=== PATIENT | female | born 1950 | race African-American/Black ===

== ENCOUNTER 2017-05-26 13:38 | Inpatient (IN) | payer MEDICARE, MEDICAID ==
[2017-05-26] MEDS ORDERED: ISOVUE-370 76%-LOCM 1 ML ONE (13:56)
[2017-05-26 15:20] LABS: Hematocrit 40.3 % (36.0-47.0); Mean Platelet Volume 7.1 fL (7.4-10.4); Red Blood Cell (RBC) Count 4.14 mill/uL (4.20-5.40); White Blood Cell (WBC) Count 15.1 thou/uL (4.8-10.8)
--- NOTE | 2017-05-26 15:35 | RAD ---
SINGLE VIEW OF THE PELVIS: Comparison: 04-21-13 History: Fall with pelvic pain and back pain. FINDINGS: Single view of the pelvis shows no evidence of acute fracture or dislocation. No degenerative changes are seen in either hip. IMPRESSION: No significant pelvic abnormality. POS: [facility]
--- NOTE | 2017-05-26 15:39 | RAD ---
THREE VIEWS LUMBOSACRAL SPINE 05/26/17 COMPARISON: 02/10/15 HISTORY: Fall with back pain. FINDINGS: Three views lumbosacral spine shows diffuse osteopenia. There is stable compression deformity of the L3 vertebral body with approximately 10-25% height loss. There is stable anterolisthesis of L4 on L5. There is no evidence of acute fracture or acute subluxation. Mild degenerative changes are seen thro ughout the lumbar spine. IMPRESSION: Stable degenerative changes and spondylolisthesis of the lumbar spine without acute osseous abnormali ty. POS: [facility]
[2017-05-26 16:03] LABS: #Eosinphils 0.1 thou/uL (0.0-0.7); #Lymphocytes 1.4 thou/uL (1.20-3.40); #Monocytes 1.1 thou/uL (0.11-0.59); #Neutrophils 12.5 thou/uL (1.40-6.50); %Basophils 0.2 % (0.0-1.0); %Eosinophils 0.5 % (0.0-10.0); %Lymphocytes 9.1 % (21.0-51.0); %Monocytes 7.4 % (0.0-10.0); Band 7 % (5-11); Neutrophil 77 % (42-75); Polychromasia SLIGHT = 2-3 cells (100X) (0-2/hpf); Reactive Lymphocytes 2 % (0-10)
[2017-05-26 16:15] LABS: ALT (SGPT) 149 U/L (8-55); AST (SGOT) 226 U/L (5-34); Alkaline Phosphatase 409 U/L (40-150); Anion Gap 12 mmol/L (10-20); BUN (Urea Nitrogen) 11 mg/dL (9.8-20.1); Bilirubin, Total 0.4 mg/dL (0.2-1.2); Calc. Creatinine Clearance 0 mL/min (70-130); Carbon Dioxide 26 mmol/L (23-31); Chloride 96 mmol/L (98-107); Estimated GFR-MDRD 83; Globulin 4.3 g/dL (2.4-3.5); Lipase 12 U/L (8-78); Protein, Total 8.3 g/dL (6.0-8.3)
[2017-05-26] MEDS ORDERED: Dextrose 50% Abboject 50 ML SYRINGE ONE ×2 (16:21→18:40)
--- NOTE | 2017-05-26 19:27 | CT ---
CONTRAST ENHANCED CT IMAGES ABDOMEN AND PELVIS 05/26/17 HISTORY: Patient with hypoglycemia. Abnormal liver function enzymes. Contrast enhanced CT images of the abdomen and pelvis obtained. The lung bases are unremarkable. The liver, spleen, and pancreas are unremarkable. The gallbladder is partially contracted. Adrenal gl ands and kidneys are unremarkable. There is an approximately 4.2 x 4.4 cm left rectus sheath hematoma . No evidence of periaortic lymphadenopathy is seen. No evidence of acute fracture seen in the abdomen or pelvis. IMPRESSION: Left rectus sheath hematoma. POS: [facility]
[2017-05-26] MEDS ORDERED: Ondansetron ODT 4 MG TAB SL PRN (20:45)
[2017-05-26] MEDS ORDERED: Acetaminophen 325 MG TAB PO PRN (20:45)
[2017-05-26] MEDS ORDERED: Ondansetron HCl/PF 4 MG/2 ML Vial IVP PRN (20:45)
[2017-05-26] MEDS ORDERED: Dextrose 5% in Water 1,000 ML IV PRN (20:56)
[2017-05-26 20:57] VITALS: BMI 33.7
[2017-05-26] MEDS ORDERED: Dextrose 10% in Water 1,000 ML IV SCH (21:00)
[2017-05-26] MEDS ORDERED: Sodium Chloride 77 MEQ in Dextrose 10% in Water 1,000 ML IV SCH ×2 (21:00)
[2017-05-26] MEDS: Dextrose 50% Abboject 50 ML SYRINGE SLOW IVP PRN ×2 (22:07→23:22)
[2017-05-26] MEDS ORDERED: methylPREDNISolone Sod Succ/PF 125 MG/2 ML VIAL IVP SCH (23:45)
--- NOTE | 2017-05-27 00:39 | HP ---
DATE OF ADMISSION: 05/26/2017 ADMITTING PHYSICIAN: Dr. Ruslan Herrera. PRIMARY CARE PHYSICIAN: Dr. Ravi Bolivar. CHIEF COMPLAINT: Found down. HISTORY OF PRESENT ILLNESS: The patient is a 66-year-old female with history of diabetes. The patie nt lives with a friend and her daughter administers her medication for her on a daily basis. The pat korutney was found unconscious by her daughter earlier today. When EMS arrived, she was found to have a glucose of 15. The patient was given glucagon and oral glucose. When she arrived to the emergency d [facility], her blood sugar was 55. The patient had 2 more episodes of asymptomatic hypoglycemia in [facility] emergency department. Dropping down to the levels of 46 and 44 respectively. The patient is a po or historian and does not remember the events. During my interview, her mentation is at baseline. S he is alert and oriented x3. She reports that her last long-acting insulin dose was on the evening o f 05/25/2017, but she reports that she takes short-acting with meals and possibly had insulin this mo rning or afternoon with one of her meals. She also reports some back pain and diffuse myalgias. All other review of systems is negative. REVIEW OF SYSTEMS: The following complete review of systems was negative, unless otherwise mentioned in the HPI or below: Constitutional: Weight loss or gain, sense of well-being, ability to conduct usual activities, exerc ise tolerance. Skin/Breast: Rash, itching, changes in hair growth or loss, nail changes, breast lumps, tenderness, swelling, nipple discharge. Eyes: Vision, double vision, tearing, blind spots, pain. ENT/Mouth: Headaches (location, time of onset, duration, precipitating factors), vertigo, lightheade dness, injury. Vision, double vision, tearing, blind spots, pain, nose bleeding, colds, obstruction, discharge, dental difficulties, gingival bleeding, dentures, neck stiffness, pain, tenderness, masses in thyroid or other areas. Cardiovascular: Precordial pain, substernal distress, palpitations, syncope, dyspnea on exertion, or thopnea, nocturnal paroxysmal dyspnea, edema, cyanosis, hypertension, heart murmurs, varicosities, ph lebitis, claudication. Respiratory: Pain, shortness of breath, wheezing, stridor, cough, hemoptysis, fever or night sweats. Gastrointestinal: Poor appetite, dysphagia, indigestion, abdominal pain, heartburn, eructation, naus ea, vomiting, hematemesis, jaundice, constipation, or diarrhea, abnormal stools (lilia-colored, tarry, bloody, greasy, foul smelling), flatulence, hemorrhoids, recent changes in bowel habits. Genitourinary: Urgency, frequency, dysuria, nocturia, hematuria, polyuria, oliguria, unusual (or nikolas nge in) color of urine, stones, hesitancy, change in size of stream, dribbling, acute retention or in continence, libido, potency. Musculoskeletal: Pain, swelling, redness or heat of muscles or joints, limitation, of motion, muscul ar weakness, atrophy, cramps. Neurologic/Psychiatric: Convulsions, paralyses, tremor, incoordination, paresthesias, difficulties w ith memory of speech, sensory or motor disturbances, or muscular coordination (ataxia, tremor), emoti onal problems, anxiety, depression, previous psychiatric care, unusual perceptions, hallucinations. Allergy/Immunologic: Skin rash, anemia, bleeding tendency, polydipsia, polyuria, intolerance to heat or cold. PAST MEDICAL HISTORY: Significant for asthma, coronary artery disease, diabetes type 2, hypertension , myalgias, carpal tunnel syndrome, and osteoarthritis. PAST SURGICAL HISTORY: Significant for bilateral knee replacement, coronary artery bypass x2, severa l spinal surgeries, left wrist surgery, glaucoma surgery. HOME MEDICATIONS: Pending list from the family. DRUG ALLERGIES: DOXYCYCLINE AND PENICILLINS. FAMILY HISTORY: Reviewed and noncontributory. PHYSICAL EXAMINATION: VITAL SIGNS: Temperature 94.6, blood pressure 117/77, pulse 104, respirations 16, satting 100% on 2 liters. GENERAL: She is in no acute distress, cooperative, alert. HEAD: Normocephalic, atraumatic. EYES: PERRL. Extraocular muscles are intact. ENT: Mouth exam is normal. Mucous membranes are moist. NECK: Full range of motion. Trachea is midline. No meningeal signs. CHEST: Breath sounds clear. No rhonchi, no wheezing. CARDIAC: Sinus tachycardia. No murmurs, regurg or gallops. ABDOMEN: There is some tenderness in the umbilical area. Normoactive bowel sounds. No rebound, no guarding. EXTREMITIES: No clubbing, cyanosis or edema. NEUROLOGIC: Alert and oriented x3. Cranial nerves II-XII grossly intact. No focal motor deficit. SKIN: The patient does have several decubitus ulcers in various stages, which have been photographed by our staff and were present on arrival. LABORATORY DATA AND IMAGES: A 12-lead EKG shows sinus tachycardia, no ST-T wave inversions or change s. Lumbar spine film shows chronic changes including degenerative joint disease, no acute processes. On abdominal exam, no acute abdominal processes. Abdominal CT shows normal liver, spleen, positive for a left rectus sheath hematoma where she normally injects her insulin. CBC: White count 15.1, h emoglobin 13, hematocrit 40.3, platelets 328, 77% neutrophils. CMP shows sodium of 130, potassium of 4.2, chloride 96, BUN 11, creatinine 0.83, last capillary blood glucose of 78, calcium 11.0, AST 226 , ALT 149, alkaline phosphatase 409, albumin 4.0. Lipase 12. ASSESSMENT: 1. Hypoglycemia. 2. Transaminitis. 3. Hyponatremia. 4. Hypertension. 5. Coronary artery disease. PLAN: The patient will be admitted to [facility] in guarded condition. We will closely monitor her capill heather blood glucose. We will treat her with hypoglycemic protocol. We will also obtain Gastroenterolo gy consultation to assess her elevated transaminases and to rule out hepatic cause for her hypoglycem ia. The patient will be placed on IV fluids consisting of D10W. The patient appears to be at baseli ne at this point, but we will follow her for any untoward developments.
[2017-05-27 05:09] LABS: #Basophils 0.1 thou/uL (0.0-0.2); #Monocytes 0.4 thou/uL (0.11-0.59); #Neutrophils 14.4 thou/uL (1.40-6.50); %Basophils 0.4 % (0.0-1.0); %Eosinophils 0.3 % (0.0-10.0); %Lymphocytes 6.4 % (21.0-51.0); %Monocytes 2.4 % (0.0-10.0); Hematocrit 36.5 % (36.0-47.0); Red Blood Cell (RBC) Count 3.72 mill/uL (4.20-5.40)
[2017-05-27 05:17] LABS: Anion Gap 14 mmol/L (10-20); BUN (Urea Nitrogen) 8 mg/dL (9.8-20.1); Calc. Creatinine Clearance 111 mL/min (70-130); Calcium 10.9 mg/dL (7.8-10.44); Carbon Dioxide 22 mmol/L (23-31); Chloride 94 mmol/L (98-107); Estimated GFR-MDRD 87
--- NOTE | 2017-05-27 07:28 | RAD ---
PORTABLE AP CHEST XRAY: DATE: 05/26/17. HISTORY: Hypoglycemia and abdominal pain. COMPARISON: 10/28/14. FINDINGS: Calcified granuloma is seen in the right mid lung zone. Lungs are otherwise clear. Cardiac silhouet te and pulmonary vasculature within normal limits. Right internal jugular central venous catheter is no longer visualized. No other interval change. IMPRESSION: No acute cardiopulmonary process. POS: [facility]
[2017-05-27] MEDS: Dextrose 10% in Water 1,000 ML IV SCH ×3 (08:59→19:39)
[2017-05-27] MEDS ORDERED: Cosyntropin 250 MCG VIAL SLOW IVP SCH (09:00)
--- NOTE | 2017-05-27 11:34 | PDOC.PN ---
- Subjective Encounter Start Date: 05/27/17 Encounter Start Time: 11:31 Subjective: alert no new complaints - Objective MAR Reviewed: Yes Vital Signs & Weight: Vital Signs (12 hours) Temp Pulse Resp BP Pulse Ox 05/27/17 08:00 99.0 F 130 H 20 99 05/27/17 07:03 99.0 F 130 H 20 177/73 H 99 05/27/17 04:00 98.4 F 111 H 16 169/68 H 100 05/27/17 00:03 98.1 F 115 H 13 158/56 H 98 Weight Admit Weight 222 lb 1.6 oz Weight 222 lb 1.6 oz I&O: 05/26/17 05/27/17 05/28/17 06:59 06:59 06:59 Intake Total 1050 Balance 1050 Result Diagrams: 05/27/17 04:46 05/27/17 04:46 Additional Labs: Accuchecks 05/27/17 05/27/17 05/27/17 09:44 07:54 05:38 POC Glucose 195 H 109 99 05/27/17 05/26/17 05/26/17 04:46 23:56 23:13 POC Glucose 54 L* 170 H 51 L* 05/26/17 05/26/17 22:41 22:05 POC Glucose 59 L* 36 L* Phys Exam - Physical Examination Constitutional: NAD HEENT: PERRLA, moist MMs Neck: supple, full ROM Respiratory: clear to auscultation bilateral Cardiovascular: RRR Gastrointestinal: soft, non-tender, positive bowel sounds Musculoskeletal: no edema Neurological: normal sensation Psychiatric: normal affect, A&O x 3 Skin: no rash Dx/Plan (1) Hypoglycemia Code(s): E16.2 - HYPOGLYCEMIA, UNSPECIFIED Status: Acute (2) Transaminitis Code(s): R74.0 - NONSPEC ELEV OF LEVELS OF TRANSAMNS & LACTIC ACID DEHYDRGNSE Status: Acute (3) CAD (coronary artery disease) Code(s): I25.10 - ATHSCL HEART DISEASE OF [place] CORONARY ARTERY W/O ANG PCTRS Status: Acute (4) Diabetes Code(s): E11.9 - TYPE 2 DIABETES MELLITUS WITHOUT COMPLICATIONS Status: Acute - Plan cont current plan of care, PT/OT ACTH stim test, awaiting GI eval and CCM eval. * .
[2017-05-27] MEDS: Acetaminophen 325 MG TAB PO PRN ×2 (13:50→19:40)
[2017-05-27] MEDS ORDERED: Metoprolol Tartrate 5 MG/5 ML VIAL IVP SCH (14:15)
[2017-05-27] MEDS ORDERED: Atenolol 50 MG TAB PO SCH (14:15)
[2017-05-27] MEDS: Atenolol 50 MG TAB PO SCH (22:10)
--- NOTE | 2017-05-28 00:33 | CON ---
DATE OF SERVICE: 05/27/2017 SERVICE: Pulmonary Medicine. REASON FOR CONSULTATION: IMCU patient. HISTORY OF PRESENT ILLNESS: The patient is a 66-year-old -[place] female. She was found unc onscious by her daughter. Her blood sugars were found to be quite low. She was brought to the emerg ency department where she was given multiple rounds of sugar. Ultimately, she recovered her mentatio n. She is requiring a D10 drip in order to maintain her blood sugars. As such, she was placed in th e IMCU. She remains on that drip and her blood sugars are only marginal at best. She denies taking any of her insulin or any more insulin that is prescribed to her. Otherwise, there has been no inter ramon change to her condition. She has essentially returned to her usual state of health and has no co mplaints of fevers, chills, nausea, vomiting, or diarrhea. PAST MEDICAL HISTORY: 1. Asthma. 2. Coronary artery disease. 3. Type 2 diabetes mellitus. 4. Hypertension. 5. Dyslipidemia. 6. Myalgia. 7. Carpal tunnel syndrome. 8. Osteoarthritis. PAST SURGICAL HISTORY: 1. Bilateral knee replacement. 2. Coronary artery bypass graft x2 vessels. 3. Spine surgeries, multiple. 4. Left wrist surgery. 5. Glaucoma surgery. FAMILY HISTORY: Noncontributory. SOCIAL HISTORY: Negative for alcohol, tobacco, or illicit drug use. She denies any exposure to chem icals, dust, asbestos, or tuberculosis. ALLERGIES: DOXYCYCLINE and PENICILLIN. MEDICATIONS: List of her inpatient medications was reviewed. No updates were made at this time. REVIEW OF SYSTEMS: General, head, ears, eyes, nose, throat, cardiovascular, respiratory, , GI, mus culoskeletal, neurologic, and skin is negative except as mentioned in the HPI. PHYSICAL EXAMINATION: VITAL SIGNS: Afebrile, pulse 96, blood pressure 97/73, respirations 22, saturation 100% on 2 liters nasal cannula. GENERAL: Patient is awake, alert, in no apparent distress. LUNGS: Excellent air entry with no prolonged expiratory phase or wheezing. HEART: Normal rate, regular. ABDOMEN: Soft, nontender, nondistended, bowel sounds positive. MUSCULOSKELETAL: No cyanosis or clubbing. No pitting in the bilateral lower extremities. NEUROLOGIC: Grossly nonfocal. LABORATORY DATA: WBC 16.0, hemoglobin 12.0, platelets 414,000. Neutrophil count is 91%. Band count was previously 7%. Cosyntropin stimulation test was performed and she had a fantastic response. So dium 126. Basic metabolic profile is otherwise unremarkable. Blood sugar remains low, on the D10 dr ip. Calcium 10.9. AST and ALT were marginally elevated. Alkaline phosphatase 409. IMAGIN. Chest x-ray demonstrates no acute cardiopulmonary abnormality. 2. CT of the abdomen and pelvis demonstrates a 4.2 x 4.4 left rectus sheath hematoma. 3. Pelvis x-ray demonstrates no acute pelvic abnormality. 4. Lumbar spine x-ray demonstrates no obvious fracture or subluxation. Stable degenerative changes. ASSESSMENT: 1. Metabolic encephalopathy. 2. Hypoglycemia. 3. Elevated liver function studies, likely secondary to the hypoxemia. 4. Type 2 diabetes mellitus. All agents directed at reducing blood sugar will be held. Agree with D10 drip. This is slowly weaned off, if she maintains her blood sugars without any support, she can be transitioned to the floor. Investigation is currently ongoing, but my suspicion is this is probab ly secondary to an iatrogenic cause. Repeat liver function tests in the morning.
[2017-05-28] MEDS: Dextrose 50% Abboject 50 ML SYRINGE SLOW IVP PRN ×3 (01:14→06:03)
--- NOTE | 2017-05-28 01:31 | CON ---
DATE OF CONSULTATION: 05/27/2017 REASON FOR CONSULTATION: Abnormal liver function test. HISTORY OF PRESENT ILLNESS: Ms. Johnson is a 66-year-old female who was seen in the office in the [facility] for reflux. She came to the emergency room yesterday secondary to hypoglycemia. EMS apparently br ought over here after the daughter called when she was found unconscious and her glucose was 15. On arrival, mental status was back at baseline. She remembered none of the events. She states she had some fever, nausea, vomiting in the past day or two ago, possibly a viral illness but states she is e ating fine now. She denies any abdominal pain. Her white count was 15,000 on admission, hemoglobin 13, platelet count 328. Her sugars have been fine since admission. Glucose was 130 yesterday with a potassium of 4.2, BUN and creatinine of 11 and 0.83, calcium was 11, AST and ALT were 226 and 149 wi th an alkaline phosphatase of 409, bilirubin was normal. UDS was positive for tricyclics and benzos. HIV was nonreactive. She had a CAT scan of abdomen and pelvis showed a left rectus sheath hematoma . Presently, she denies any abdominal pain, nausea, or vomiting. She has some left upper quadrant p ain. She has had no diarrhea. She denies any melena. REVIEW OF SYSTEMS: Negative for dysphagia, odynophagia, prior history of reflux. She has had abnorm al liver enzymes when we evaluate in the past and also with alkaline phosphatase elevation, LFTs. Ul trasound and CAT scans of the liver were normal. It is felt there may be some component of . She has had some atrial fibrillation in the past. PAST MEDICAL HISTORY: Asthma, coronary artery disease, type 2 diabetes, previous fibrillation, myalg ias, hypertension, carpal tunnel, osteoarthritis, history of gastroparesis related to diabetes. PAST SURGICAL HISTORY: Bilateral knee replacement, coronary artery disease, bypass, spinal surgery, wrist surgery, glaucoma surgery. She had upper and lower endoscopies for reflux and colorectal cance r screening which was normal on 12/2015. She had normal ultrasound of the gallbladder in 09/2013 and negative CAT scan in 09/2013. HOME MEDICATIONS: Iron, albuterol, calcium, Arava, [place], eye spray, nose spray, eyedrops, dorzolami de, Pravachol, Elavil 25 at bedtime, metformin 500 mg t.i.d., omeprazole 40 mg b.i.d., Reglan 10 mg t .i.d. MEDICATIONS HERE: Tylenol, atenolol, glucagon, D5W. PHYSICAL EXAMINATION: VITAL SIGNS: Temperature is 98, pulse 108, blood pressure 132/96. LUNGS: Clear. HEART: Regular without clicks or murmurs. ABDOMEN: Soft, protuberant. There is no rebound. There is no guarding. There is no palpable hepat osplenomegaly. EXTREMITIES: No clubbing, cyanosis, or edema. LABORATORY AND X-RAY FINDINGS: White count 16, hemoglobin 12, platelet count 410. Sodium this morni ng was 126 with a potassium of 4.4, BUN and creatinine are 8 and 0.8. Liver function tests were not rechecked today. ASSESSMENT: 1. Abnormal liver function tests, unclear etiology. This could be a reaction to hypoglycemia and if she had any rhabdomyolysis associated with that. She has not had any gallstones. She has no right upper quadrant pain. It may be reasonable to obtain hepatitis serologies and recheck her LFTs tomorr ow. We will follow along with you. 2. Gastroparesis. She is planning to get back on her Reglan. If she has any nausea, then we would get her back on a PPI as well. I hope she can go home in the next day or so.
[2017-05-28 05:07] LABS: #Basophils 0.1 thou/uL (0.0-0.2); #Eosinphils 0.1 thou/uL (0.0-0.7); #Lymphocytes 2.4 thou/uL (1.20-3.40); #Monocytes 1.5 thou/uL (0.11-0.59); #Neutrophils 7.4 thou/uL (1.40-6.50); %Basophils 0.5 % (0.0-1.0); %Eosinophils 0.5 % (0.0-10.0); %Lymphocytes 20.9 % (21.0-51.0); %Monocytes 13.4 % (0.0-10.0); Hematocrit 30.2 % (36.0-47.0); Mean Platelet Volume 7.1 fL (7.4-10.4); Red Blood Cell (RBC) Count 3.11 mill/uL (4.20-5.40); White Blood Cell (WBC) Count 11.4 thou/uL (4.8-10.8)
[2017-05-28 05:14] LABS: Anion Gap 12 mmol/L (10-20); BUN (Urea Nitrogen) 10 mg/dL (9.8-20.1); Calc. Creatinine Clearance 107 mL/min (70-130); Calcium 10.2 mg/dL (7.8-10.44); Carbon Dioxide 26 mmol/L (23-31); Chloride 99 mmol/L (98-107); Estimated GFR-MDRD 83
[2017-05-28 05:17] LABS: ALT (SGPT) 163 U/L (8-55); AST (SGOT) 220 U/L (5-34); Alkaline Phosphatase 363 U/L (40-150); Bilirubin, Direct 0.2 mg/dL (0.1-0.3); Bilirubin, Total 0.3 mg/dL (0.2-1.2); Protein, Total 6.8 g/dL (6.0-8.3)
[2017-05-28] MEDS: Atenolol 50 MG TAB PO SCH ×2 (09:00→21:46)
[2017-05-28] MEDS: Acetaminophen 325 MG TAB PO PRN ×2 (09:02→14:18)
[2017-05-28] MEDS: Dextrose 10% in Water 1,000 ML IV SCH (09:20)
--- NOTE | 2017-05-28 12:07 | PDOC.PN ---
- Subjective Encounter Start Date: 05/28/17 Encounter Start Time: 12:05 Subjective: I FEEL FINE DOC - Objective MAR Reviewed: Yes Vital Signs & Weight: Vital Signs (12 hours) Temp Pulse Resp BP BP Pulse Ox 05/28/17 11:06 98.5 F 103 H 20 137/59 L 100 05/28/17 09:00 113 H 136/107 H 05/28/17 07:23 98.6 F 98 18 97 05/28/17 07:01 98.6 F 101 H 20 136/107 H 100 05/28/17 04:00 98.6 F 98 18 117/56 L 100 Weight Admit Weight 222 lb 1.6 oz Weight 222 lb 1.6 oz I&O: 05/27/17 05/28/17 05/29/17 06:59 06:59 06:59 Intake Total 1050 1662 Output Total 1650 Balance 1050 12 Result Diagrams: 05/28/17 04:45 05/28/17 04:45 Additional Labs: Accuchecks 05/28/17 05/28/17 05/28/17 09:55 08:52 07:52 POC Glucose 77 80 57 L* 05/28/17 05/28/17 05/28/17 07:05 04:44 02:02 POC Glucose 102 94 150 H 05/28/17 05/28/17 05/28/17 01:12 00:39 00:07 POC Glucose 56 L* 61 L 51 L* 05/27/17 05/27/17 05/27/17 22:13 20:08 17:46 POC Glucose 108 160 H 118 H 05/27/17 05/27/17 16:10 11:34 POC Glucose 166 H 157 H Phys Exam - Physical Examination Constitutional: NAD HEENT: PERRLA, moist MMs, sclera anicteric Neck: supple, full ROM Respiratory: no rales, no rhonchi, clear to auscultation bilateral Cardiovascular: RRR Gastrointestinal: soft, non-tender, positive bowel sounds Musculoskeletal: no edema, pulses present Neurological: non-focal, normal sensation, moves all 4 limbs Psychiatric: normal affect, A&O x 3 Skin: no rash Dx/Plan (1) Hypoglycemia Code(s): E16.2 - HYPOGLYCEMIA, UNSPECIFIED Status: Acute (2) Transaminitis Code(s): R74.0 - NONSPEC ELEV OF LEVELS OF TRANSAMNS & LACTIC ACID DEHYDRGNSE Status: Acute (3) CAD (coronary artery disease) Code(s): I25.10 - ATHSCL HEART DISEASE OF [place] CORONARY ARTERY W/O ANG PCTRS Status: Acute (4) Diabetes Code(s): E11.9 - TYPE 2 DIABETES MELLITUS WITHOUT COMPLICATIONS Status: Chronic - Plan cont current plan of care CONTINUED HYPOGLCEMIC EPISODES, LFTS ELEVATED -: COSTYNTROPIN STIM PENDING. AWAITING GI RECCS REGARDING TRANSAMINASES -: HEP PANEL NEGATIVE * .
--- NOTE | 2017-05-28 12:08 | PRG ---
DATE OF SERVICE: 05/28/2017 SERVICE: Pulmonary Medicine. INTERVAL HISTORY: The patient is doing really well from a respiratory standpoint. She is awake, sarika rt, and cooperative. She is in good spirits this morning. She indicates eating her food quite well. She is requesting to go home, but we suggested that she cannot do that because she is still requiri ng a little bit of a D10 drip. Otherwise, there has been no interval change to her condition. PHYSICAL EXAMINATION: VITAL SIGNS: Afebrile, pulse 103, blood pressure 137/59, respirations 20, saturation 100% on 2 liter s nasal cannula. GENERAL: Patient is awake, alert, in no apparent distress. LUNGS: Excellent air entry with no prolonged expiratory phase or wheezing. HEART: Normal rate and regular. ABDOMEN: Soft, nontender, and nondistended. Bowel sounds positive. MUSCULOSKELETAL: No cyanosis or clubbing. No pitting in the bilateral lower extremities. NEUROLOGIC: Grossly nonfocal. LABORATORY DATA: WBC 11.4, hemoglobin 10.1, platelets 405,000. Neutrophil count has returned to nor mal. Blood sugars ranged from 57-102. AST and ALT are roughly stable. Alkaline phosphatase is down trending. Basic metabolic profile is otherwise unremarkable. Hepatitis serologies are unremarkable . ASSESSMENT: 1. Metabolic encephalopathy, resolved. 2. Hypoglycemia, persisting. 3. Elevated liver function studies, likely sequelae of severe hypoglycemia. 4. Type 2 diabetes mellitus. PLAN: All hypoglycemic agents will be held. We will work on mobilizing the patient through the day by getting her into a chair and working with physical therapy. Dowell catheter will be discontinued t shannon. Pulmonary will continue to follow while she remains in this location, but once she is off the D10 drip, she will be stable for transition to the floor.
[2017-05-28] MEDS ORDERED: Promethazine HCl 25 MG/ML VIAL SLOW IVP PRN (20:03)
[2017-05-28] MEDS: Metoclopramide HCl 10 MG/10 ML UDCUP PO SCH (21:46)
--- NOTE | 2017-05-28 22:13 | PRG ---
DATE OF SERVICE: 05/28/2017 SUBJECTIVE: Ms. Johnson is eating. She got a full meal in front of her. She states she is nauseated at times. She is not getting her Reglan and she wants it. OBJECTIVE: VITAL SIGNS: Temperature is 98, pulse 93, respirations 18, blood pressure 120/50 to 120/63. ABDOMEN: Soft, nontender. LUNGS: Clear. CARDIAC: Regular rhythm. EXTREMITIES: Reveal no edema. LABORATORY STUDIES: White count 11, hemoglobin 10, platelet count 405, fingerstick blood glucose ivis ry hour has been stable except for a low of 59 at 1400 hours today, 52 at 7:00 this morning. AST and ALT are 220 and 163 with alkaline phosphatase of 363. Serology negative for hepatitis A, B, and C. HIV was negative. ASSESSMENT: 1. Hypoglycemia, resolved. Transaminitis of unclear etiology, possibly viral, possibly related to severe hypoglycemic episode and mild rhabdomyolysis presentation, no signs of acute hepatitis, no josé luis or elevation of liver enzymes and normal liver function tests with no right upper quadrant pain. 2. Poorly controlled diabetes. 3. History of intermittent atrial fibrillation in the past. 4. History of chronic gastroparesis for which she requires Reglan at home. RECOMMENDATIONS: Resume Reglan p.r.n. for gastroparesis and I will follow from a distance.
[2017-05-29 06:31] LABS: #Basophils 0.1 thou/uL (0.0-0.2); #Eosinphils 0.1 thou/uL (0.0-0.7); #Lymphocytes 2.1 thou/uL (1.20-3.40); #Monocytes 1.3 thou/uL (0.11-0.59); #Neutrophils 5.3 thou/uL (1.40-6.50); %Basophils 0.6 % (0.0-1.0); %Eosinophils 1.5 % (0.0-10.0); %Lymphocytes 23.9 % (21.0-51.0); %Monocytes 14.3 % (0.0-10.0); Mean Platelet Volume 6.9 fL (7.4-10.4); Red Blood Cell (RBC) Count 3.17 mill/uL (4.20-5.40); White Blood Cell (WBC) Count 8.9 thou/uL (4.8-10.8)
[2017-05-29 06:55] LABS: Anion Gap 9 mmol/L (10-20); BUN (Urea Nitrogen) 8 mg/dL (9.8-20.1); Calc. Creatinine Clearance 115 mL/min (70-130); Calcium 10.2 mg/dL (7.8-10.44); Carbon Dioxide 28 mmol/L (23-31); Chloride 101 mmol/L (98-107); Estimated GFR-MDRD 90
[2017-05-29 06:58] LABS: ALT (SGPT) 184 U/L (8-55); AST (SGOT) 203 U/L (5-34); Alkaline Phosphatase 365 U/L (40-150); Bilirubin, Direct 0.2 mg/dL (0.1-0.3); Bilirubin, Total 0.4 mg/dL (0.2-1.2); Protein, Total 6.7 g/dL (6.0-8.3)
[2017-05-29] MEDS: Metoclopramide HCl 10 MG/10 ML UDCUP PO SCH ×4 (09:18→20:26)
[2017-05-29] MEDS: Atenolol 50 MG TAB PO SCH ×2 (09:18→20:26)
[2017-05-29] MEDS: Dextrose 10% in Water 1,000 ML IV SCH (09:19)
--- NOTE | 2017-05-29 10:19 | PDOC.PN ---
- Subjective Encounter Start Date: 05/29/17 Encounter Start Time: 10:18 Subjective: I FEEL GOOD, I'M READY TO GO HOME - Objective MAR Reviewed: Yes Vital Signs & Weight: Vital Signs (12 hours) Temp Pulse Resp BP Pulse Ox 05/29/17 09:18 98 05/29/17 07:38 99.6 F 98 24 H 98 05/29/17 07:00 99.6 F 110 H 24 H 114/71 96 05/29/17 06:37 100 05/29/17 04:00 99.2 F 94 18 121/53 L 100 05/29/17 00:00 98.1 F 86 18 145/63 H 100 Weight Admit Weight 222 lb 1.6 oz Weight 224 lb 4.8 oz I&O: 05/28/17 05/29/17 05/30/17 06:59 06:59 06:59 Intake Total 1662 2580 400 Output Total 1650 1925 150 Balance 12 655 250 Result Diagrams: 05/29/17 06:17 05/29/17 06:17 Additional Labs: Accuchecks 05/29/17 05/29/17 05/29/17 08:19 05:53 04:04 POC Glucose 131 H 141 H 118 H 05/29/17 05/29/17 05/28/17 01:54 00:04 21:59 POC Glucose 98 117 H 117 H 05/28/17 05/28/17 05/28/17 20:10 18:21 17:14 POC Glucose 128 H 83 101 05/28/17 05/28/17 05/28/17 15:55 14:36 14:02 POC Glucose 70 79 59 L* 05/28/17 05/28/17 05/28/17 11:57 04:04 03:58 POC Glucose 85 46 L* 51 L* Phys Exam - Physical Examination Constitutional: NAD HEENT: PERRLA, moist MMs, sclera anicteric Neck: supple, full ROM Respiratory: clear to auscultation bilateral Cardiovascular: RRR Gastrointestinal: soft, non-tender, positive bowel sounds Musculoskeletal: edema present Neurological: non-focal, moves all 4 limbs Psychiatric: normal affect, A&O x 3 Deviation from normal: MX ULCERS Dx/Plan (1) Hypoglycemia Code(s): E16.2 - HYPOGLYCEMIA, UNSPECIFIED Status: Acute (2) Transaminitis Code(s): R74.0 - NONSPEC ELEV OF LEVELS OF TRANSAMNS & LACTIC ACID DEHYDRGNSE Status: Acute (3) CAD (coronary artery disease) Code(s): I25.10 - ATHSCL HEART DISEASE OF [place] CORONARY ARTERY W/O ANG PCTRS Status: Acute (4) Diabetes Code(s): E11.9 - TYPE 2 DIABETES MELLITUS WITHOUT COMPLICATIONS Status: Chronic - Plan cont current plan of care, PT/OT CONTINUES TO REQUIRE D10, ONCE WEANED OFF WILL D/C HOME. -: GI EVAL APPRECIATED, NO FURTHER W/U OF TRANSAMINITIS SUGGESTED * .
--- NOTE | 2017-05-29 12:07 | PRG ---
DATE OF SERVICE: 05/29/2017 SUBJECTIVE: Johnson this morning awake, alert, responsive, no distress, no complaints. OBJECTIVE: VITAL SIGNS: Respirations 20, temperature 99, blood pressure 140/75. CHEST: Reveals no wheezing. CARDIAC: Normal S1 and S2. No gallops. Blood sugar this morning is 131 on D10. ALT and AST are elevated. AST of 203 and ALT 185. IMPRESSION: 1. Hyperglycemia. 2. Abnormal liver function. 3. Encephalopathy. 4. History of diabetes. PLAN: Decrease D10 to 10 mL. Pressure remains in the normal range. We will follow.
--- NOTE | 2017-05-29 15:14 | PRG ---
DATE OF SERVICE: 05/29/2017 SUBJECTIVE: Ms. Johnson feels well. She is eating in a big tray, no pain with eating, no nausea, no vomiting. Denies any right upper quadrant pain. PHYSICAL EXAMINATION: VITAL SIGNS: Pulse 90-104, temperature 98, blood pressure 114/71. LUNGS: Clear. HEART: Regular rate and rhythm without clicks or murmurs. ABDOMEN: Soft, nontender. LABORATORY STUDIES: Glucoses have been over 70 since 1215 and 1400. She she did have a low sugar at 2 p.m. yesterday afternoon. AST and ALT are still up a little bit and trending down at 203 and 184. Alkaline phosphatase is 365 and staying about the same; this is anywhere from 242 to 409. Hepatiti s serologies are negative. ASSESSMENT: Abnormal liver enzymes. This may be related to her hypoglycemia, although I think if sh moises became hypotensive and had a shock liver, this would resolve by now. She is also on new medication she had been on in the past, one being the Arava. I will have to check her records in the office to see how long she has been on that. She seems to have no symptoms of biliary colic. A CT scan was n egative. We will get an ultrasound of her right upper quadrant. There may be some relation of AST a nd ALT elevation to the hematoma on her abdominal wall. At this time, I think she can move out of U, but I will leave that decision up to ballistics professor. She will probably go home in the next 24-48 hours and we can always follow up her liver function test in the outpatient setting when she begins to dev elop some type of pain or worsening function.
[2017-05-29] MEDS ORDERED: Dextrose 50% Abboject 50 ML SYRINGE IVP PRN (18:34)
[2017-05-29] MEDS ORDERED: Dextrose 5% in Water 1,000 ML IV PRN (18:34)
[2017-05-29] MEDS: Insulin Regular 300 UNITS/3 ML VIAL SC PRN ×2 (18:48→20:28)
[2017-05-29] MEDS ORDERED: HYDROcodone/Acetaminophen 5/325 mg Tablet PO PRN (20:05)
[2017-05-30 04:21] LABS: Anion Gap 11 mmol/L (10-20); BUN (Urea Nitrogen) 10 mg/dL (9.8-20.1); Calc. Creatinine Clearance 121 mL/min (70-130); Calcium 9.4 mg/dL (7.8-10.44); Carbon Dioxide 26 mmol/L (23-31); Chloride 100 mmol/L (98-107); Estimated GFR-MDRD Greater than 90
[2017-05-30 04:24] LABS: ALT (SGPT) 145 U/L (8-55); AST (SGOT) 119 U/L (5-34); Alkaline Phosphatase 338 U/L (40-150); Bilirubin, Direct 0.3 mg/dL (0.1-0.3); Bilirubin, Total 0.5 mg/dL (0.2-1.2); Protein, Total 6.4 g/dL (6.0-8.3)
[2017-05-30] MEDS: Atenolol 50 MG TAB PO SCH (09:11)
[2017-05-30] MEDS: Metoclopramide HCl 10 MG/10 ML UDCUP PO SCH ×3 (09:11→17:22)
[2017-05-30] MEDS: Dextrose 10% in Water 1,000 ML IV SCH (09:12)
--- NOTE | 2017-05-30 09:24 | ULT ---
RIGHT UPPER QUADRANT ULTRASOUND: HISTORY: Abnormal liver function tests. Abdominal pain. FINDINGS: Gallbladder is suboptimally evaluated; however, as visualized, no evidence of gallstones identified. The gallbladder wall appears normal. The common duct is normal caliber. The visualized liver and r ight kidney appear unremarkable. The pancreas is obscured. IMPRESSION: Mildly degraded study due to overlying bowel gas. The gallbladder appears unremarkable as visualized . POS: [facility]
[2017-05-30] MEDS ORDERED: HYDROcodone/Acetaminophen 10/325 mg Tablet PO PRN (12:11)
[2017-05-30] MEDS ORDERED: PROVENTIL INHALER 6.7 G (200 INHALATIONS) INH PRN (12:11)
--- NOTE | 2017-05-30 13:27 | PRG ---
DATE OF SERVICE: 05/30/2017 SUBJECTIVE: She is awake, alert, and responsive. Denies any pain or discomfort. LABORATORY DATA: Her blood sugar is 227. She is on D10 at 10 mL. AST 119 and ALT is 145. Sodium 1 37. OBJECTIVE: VITAL SIGNS: Blood pressure 140/71, sats are 98%, temperature is 99. She is drinking a large quanti ty of fluid. CHEST: Decreased breath sounds. No wheezing. CARDIAC: Normal S1, S2. No gallops. IMPRESSION: 1. Status post hypoglycemia, medication related, improved. 2. Abnormal liver function tests, syndrome of inappropriate antidiuretic hormone secretion. PLAN: Discontinue D10, p.o. hydration, supportive care and PT. Hopefully, she will be discharged ho nd in the next 24-48 hours.
[2017-05-30] MEDS ORDERED: metFORMIN 500 MG TAB PO SCH ×2 (13:30→17:00)
[2017-05-30] MEDS ORDERED: Non-Formulary Item 1 EACH (Brinzolamide/Brimonidine Tart [Simbrinza 1%/0.2% Ophth Susp] 1 EA EYE SCH (15:00)
[2017-05-30] MEDS ORDERED: Brimonidine Tartrate 0.2% Ophth Soln 5 ml Bottle EA EYE SCH (15:00)
[2017-05-30] MEDS ORDERED: Ipratropium Bromide 0.06% Nasal Inhaler 15ml EA NARE SCH (15:00)
[2017-05-30] MEDS ORDERED: Dorzolamide HCl 2% Ophth Soln 10 ml Bottle EA EYE SCH (15:00)
[2017-05-30] MEDS ORDERED: Metoclopramide HCl 10 MG TAB PO SCH (15:00)
[2017-05-30 15:24] VITALS: BP 142/65; TEMP 98.9
[2017-05-30] MEDS ORDERED: Pravastatin Sodium 40 MG TAB PO SCH (21:00)
[2017-05-30] MEDS ORDERED: Latanoprost 0.005% Ophth Soln 2.5 ml Bottle EA EYE SCH (21:00)
[2017-05-30] MEDS ORDERED: Amitriptyline HCl 25 MG TAB PO SCH (21:00)
--- NOTE | 2017-05-30 22:56 | DIS ---
DATE OF ADMISSION: 05/26/2017 DATE OF DISCHARGE: 05/30/2017 DIAGNOSES AT THE TIME OF DISCHARGE: 1. Hypoglycemia, most likely related to recent introduction of insulin, resolved. 2. Elevated transaminases of unclear etiology. 3. Coronary artery disease, chronic, stable. 4. Diabetes mellitus, chronic. 5. History of asthma. 6. Myalgias. 7. Carpal tunnel syndrome. 8. Osteoarthritis. CONSULTANTS: Dr. Ross Narvaez, GI; Dr. Shaun Marie; and Dr. Kody Coulter for Critical Care/Pul monary Services. HOSPITAL COURSE: The patient is a 66-year-old -[place] female with history of diabetes who w as found down by her daughter. She was unconscious and was not able to communicate with her. The EM S was called and she was taken to the emergency room, at the scene, her glucose was checked and it wa s 15. She was given glucagon and oral glucose. When she arrived to emergency room, her blood glucos e was up to 55% and she had two additional episodes of asymptomatic hypoglycemia with levels at 46 an d 44 respectively. According to her, she was given long-acting insulin the night before. During the emergency room evaluation, her white count was 15.1, hemoglobin 13, hematocrit 40.3, platelet count 328. Sodium was 130, potassium 4.2, chloride 96, BUN 11, creatinine 0.83, AST was up to 226 and ALT was 149, alkaline phosphatase 409, albumin 4.0. Lipase 12. The patient was admitted to [facility] in guar ded condition with close monitoring of her capillary blood glucose with hypoglycemic protocol. Gastr oenterologist was consulted for elevated transaminases. The patient was placed on IV fluids consisti ng of D10 water and despite of this measure, she was still having hypoglycemia. Finally, she recover ed her glycemia went up above 100. She had a cosyntropin stimulating test with good response, althou gh her baseline cortisol was low, most likely secondary to her chronic intake of prednisone at home. Also, she was seen by lead java programmer and Pulmonary/clinical transformation specialist and it was not reall y clear why her transaminases were elevated, but followup on other levels showed significant improvem ent and today, Dr. Narvaez, her lead java programmer is okay to discharge her home and have follow up on her elevated transaminases in his office. In the meantime, she had hepatitis panel A, B and C done, which came back negative. Her glycemia is going up to 300 now. I started her on her metformin 500 mg 3 times a day. Her blood pressure is 142/65, pulse is 101, and temperature is 98.9, respiratory r ate is ranging from 18 to 20 and O2 saturation is 100%. She was seen and examined before she is disc harged. DISPOSITION: Home. ACTIVITIES: As tolerated. HOME MEDICATIONS: Metformin 500 mg 3 times a day, albuterol 8.5 grams HFA 2 puffs q.4 hours p.r.n. a s needed, amitriptyline 25 mg at bedtime, aspirin 325 mg once a day, atenolol 100 mg once a day, brim onidine tartrate 1 drop to each eye 3 times a day, vitamin D3 1000 units once a day, desipramine 50 m g once a day, dorzolamide 1 drop to each eye 3 times a day, ferrous sulfate 47.5 mg tablets extended release once a day, hydrocodone bitartrate/apap 10/325 one tablet 3 times a day as needed for the do n. Ipratropium bromide 2 sprays to each nares 3 times a day, latanoprost 2.5 mL bottle 1 drop to eac h eye at bedtime, leflunomide 20 mg once a day, metformin as mentioned above 500 mg 3 times a day, me toclopramide 10 mg 3 times a day, omeprazole 40 mg twice a day, pravastatin 40 mg at bedtime, prednis one 10 mg every morning, and [place] 1 drop to each eye and brinzolamide/brimonidine 1 drop to each e ye 3 times a day. The patient is having the followup appointment with her physician tomorrow and she is going to a follow up with Dr. Narvaez to follow up on her transaminases elevation in a week. The patient is seen and examined before she is discharged. Discharge time is less than 30 minutes.
--- NOTE | 2017-05-31 06:25 | PRG ---
DATE OF SERVICE: 05/30/2017 SUBJECTIVE: Ms. Johnson is eating well, feels well. She has had stable glucoses. PHYSICAL EXAMINATION: VITAL SIGNS: Pulse 106, temperature 98, blood pressure 143/65. ABDOMEN: Soft, nontender, no palpable hepatosplenomegaly. LABORATORY STUDIES: AST is 119, ALT is 45, alkaline phosphatase 338, bilirubin is normal. ASSESSMENT: Liver function tests improving, etiology unclear, possibly related to viral illness, pas sive congestion. Hepatitis serology is negative. Normal liver function tests in the past. Ultrasou nd today was normal. The patient is being discharged. I will be happy to follow her up from the sta ndpoint of her liver function tests in 1-2 weeks.
[2017-05-31] MEDS ORDERED: predniSONE 20 MG TAB PO SCH (08:00)
[2017-05-31] MEDS ORDERED: Ferrous Sulfate 325 MG TAB PO SCH (08:00)
[2017-05-31] MEDS ORDERED: Atenolol 50 MG TAB PO SCH (09:00)
[2017-05-31] MEDS ORDERED: Leflunomide 10 mg Tablet PO SCH (09:00)
[2017-05-31] MEDS ORDERED: DESIPRAMINE HCL 50 MG PO SCH (09:00)
[2017-05-31] MEDS ORDERED: Non-Formulary Item 1 EACH (Bimatoprost [Lumigan] 1 DROP) EA EYE SCH (09:00)
[2017-05-31] MEDS ORDERED: Aspirin 325 MG TAB PO SCH (09:00)
== END 2017-05-30 18:25 | disposition home or self-care (01) | DRG 637 ==
LOC: ERS 13:38 → EDBD 13:38 → IMCU/EMU 20:49
PROVIDERS: ADMIT Internal Medicine Addiction Medicine; ATTEND Internal Medicine Addiction Medicine
DX: E09.649 Drug or chemical induced diabetes mellitus with hypoglycemia without coma (principal); G93.41 Metabolic encephalopathy; I10 Essential (primary) hypertension; Z96.653 Presence of artificial knee joint, bilateral; Z95.1 Presence of aortocoronary bypass graft; I25.10 Atherosclerotic heart disease of native coronary artery without angina pectoris; R74.0 Nonspecific elevation of levels of transaminase and lactic acid dehydrogenase [LDH]; S30.1XXA Contusion of abdominal wall, initial encounter; T38.3X5A Adverse effect of insulin and oral hypoglycemic [antidiabetic] drugs, initial encounter; M79.1 Myalgia; J45.909 Unspecified asthma, uncomplicated; G56.00 Carpal tunnel syndrome, unspecified upper limb; M19.90 Unspecified osteoarthritis, unspecified site; K31.84 Gastroparesis; R09.02 Hypoxemia; I25.2 Old myocardial infarction
CPT/HCPCS: 36415; 36416; 71010; 72100; 72170; 74177; 76705; 80048; 80053; 80074; 80076; 80400; 83690; 85025; 93005; 93010; 96361; 96374; 96376; G8978-GP-CM; G8979-GP-CK; J0834

== ENCOUNTER 2017-07-16 07:53 | Day surgery (SDC) | payer MEDICARE, MEDICAID ==
[2017-07-15 12:31] VITALS: BMI 30.4
[~2017-07-16 07:53] MED LIST: FLU VACC TS2017-18 (>65YR) 0.5 ML SYRINGE IM ONE
[2017-07-16 08:19] LABS: #Basophils 0.1 thou/uL (0.0-0.2); #Eosinphils 0.1 thou/uL (0.0-0.7); #Lymphocytes 2.9 thou/uL (1.20-3.40); #Neutrophils 7.6 thou/uL (1.40-6.50); %Basophils 0.7 % (0.0-1.0); %Eosinophils 0.9 % (0.0-10.0); %Lymphocytes 24.8 % (21.0-51.0); %Monocytes 8.5 % (0.0-10.0); %Neutrophils 65.1 % (42.0-75.0); Hemoglobin 10.6 g/dL (12.0-16.0); Mean Corpuscular HGB CONC 31.3 g/dL (32.0-36.0); Mean Corpuscular Hemoglobin 30.3 pg (27.0-31.0); Mean Corpuscular Volume 96.6 fl (81.0-99.0); Mean Platelet Volume 7.6 fL (7.4-10.4); Platelet Count 422 thou/uL (130-400); RBC Distribution Width 12.8 % (11.5-14.5); Red Blood Cell (RBC) Count 3.49 mill/uL (4.20-5.40); White Blood Cell (WBC) Count 11.6 thou/uL (4.8-10.8)
[2017-07-16 08:23] LABS: PTT 27.2 SEC (22.9-36.1); Prothrombin Time 13.7 SEC (12.0-14.7)
[2017-07-16] MEDS ORDERED: Sodium Bicarbonate 2.4 MEQ/5 ML ONE (08:50)
--- NOTE | 2017-07-16 09:22 | ULT ---
ULTRASOUND GUIDED LIVER BIOPSY: HISTORY: Elevated LFTs. COMPARISON: Ultrasound of gallbladder 05/30/17. FINDINGS: The patient was brought to the ultrasound suite. All questions were answered. The patient's abdomen was prepped and draped in normal sterile fashion. Using an 18-gauge biopsy nee dle, a total of two 22 mm cores were obtained. The patient tolerated the procedure well. IMPRESSION: Technically successful random liver biopsy ultrasound-guided. POS: [facility]
[2017-07-16 09:50] VITALS: BP 149/79; TEMP 97.6
== END 2017-07-16 10:45 | disposition home or self-care (01) ==
LOC: ULT 07:53
PROVIDERS: ATTEND Internal Medicine Gastroenterology
PROC: 0FB03ZX Excision of Liver, Percutaneous Approach, Diagnostic (ICD-10-PCS; principal; 2017-07-16)
DX: K75.89 Other specified inflammatory liver diseases (principal); K21.9 Gastro-esophageal reflux disease without esophagitis; E11.9 Type 2 diabetes mellitus without complications; Z88.1 Allergy status to other antibiotic agents; Z88.0 Allergy status to penicillin; Z91.041 Radiographic dye allergy status; Z79.84 Long term (current) use of oral hypoglycemic drugs; Z79.899 Other long term (current) drug therapy; Z98.890 Other specified postprocedural states
CPT/HCPCS: 36415; 47000; 76942; 85025; 85610; 85730; 88307; 88313

== ENCOUNTER 2017-08-09 07:55 | Outpatient (CLI) | payer OTHER | END 2017-08-09 07:56 | disposition home or self-care (01) | LOC: EDBD → BICMAMMO 07:55 | PROVIDERS: ATTEND Family Medicine | DX: Z12.31 Encounter for screening mammogram for malignant neoplasm of breast (principal) | CPT/HCPCS: 77063; 77067 ==

== ENCOUNTER 2018-04-23 12:01 | Emergency (ER) | payer MEDICARE, OTHER | END 2018-04-23 12:58 | disposition home or self-care (01) | LOC: ERS 12:01 | DX: J06.9 Acute upper respiratory infection, unspecified (principal); J45.909 Unspecified asthma, uncomplicated; I25.2 Old myocardial infarction; E11.9 Type 2 diabetes mellitus without complications; I10 Essential (primary) hypertension; F41.9 Anxiety disorder, unspecified | CPT/HCPCS: 99283 ==

== ENCOUNTER 2018-04-28 12:37 | Emergency (ER) | payer MEDICARE, OTHER ==
[2018-04-28] MEDS ORDERED: Meclizine HCl 25 MG TAB ONE (13:58)
[2018-04-28] MEDS ORDERED: Acetaminophen 325 MG TAB ONE (14:00)
[2018-04-28 14:38] LABS: Bilirubin Negative (Negative); Blood, Urine Negative (Negative); Clarity CLEAR (Clear); Glucose, Urine (Dipstick) Negative (Negative); Leukocyte Trace (Negative); Nitrite Negative (Negative); Protein, Urine (Dipstick) Negative (Neg-Trace); Specific Gravity, Urine 1.011 (1.002-1.036); Urobilinogen 0.2 mg/dL (0.2-1.0)
[2018-04-28 14:39] LABS: #Basophils 0.1 thou/uL (0.0-0.2); #Eosinphils 0.1 thou/uL (0.0-0.7); #Lymphocytes 2.4 thou/uL (1.20-3.40); #Monocytes 1.1 thou/uL (0.11-0.59); #Neutrophils 6.8 thou/uL (1.40-6.50); %Basophils 0.8 % (0.0-1.0); %Eosinophils 1.4 % (0.0-10.0); %Lymphocytes 22.3 % (21.0-51.0); %Monocytes 10.6 % (0.0-10.0); Hemoglobin 11.2 g/dL (12.0-16.0); Mean Corpuscular HGB CONC 32.2 g/dL (32.0-36.0); Mean Corpuscular Volume 93.3 fL (78.0-98.0); Platelet Count 410 thou/uL (130-400); RBC Distribution Width 14.2 % (11.5-14.5); Red Blood Cell (RBC) Count 3.73 mill/uL (4.20-5.40); White Blood Cell (WBC) Count 10.5 thou/uL (4.8-10.8)
[2018-04-28 14:40] LABS: Bacteria/HPF None Seen HPF (None Seen); Hyaline Casts/LPF 0-3 HYALINE CAST LPF (0-3 Hyaline); RBC/HPF 0-3 HPF (0-3); Squamous Epithelial 0-3 HPF (0-3); WBC/HPF 0-3 HPF (0-3)
== END 2018-04-28 16:01 | disposition left against medical advice (07) ==
LOC: EDBD → MERGE 12:37 → ERS 12:37
DX: R42 Dizziness and giddiness (principal); E78.5 Hyperlipidemia, unspecified; E11.9 Type 2 diabetes mellitus without complications; I10 Essential (primary) hypertension; I25.2 Old myocardial infarction
CPT/HCPCS: 36415; 81003; 81015; 85025; 99284

== ENCOUNTER 2018-05-05 09:36 | Emergency (ER) | payer MEDICARE, OTHER ==
[2018-05-05] MEDS ORDERED: hydrOXYzine 25 MG TAB PO SCH (10:30)
== END 2018-05-05 10:50 | disposition home or self-care (01) ==
LOC: ERS 09:36
DX: F41.1 Generalized anxiety disorder (principal); J45.909 Unspecified asthma, uncomplicated; I25.2 Old myocardial infarction; E11.9 Type 2 diabetes mellitus without complications; I10 Essential (primary) hypertension; F41.9 Anxiety disorder, unspecified
CPT/HCPCS: 99283

== ENCOUNTER 2018-05-21 00:06 | Observation (INO) | payer MEDICARE, MEDICAID ==
[2018-05-21 00:45] LABS: #Eosinphils 0.1 thou/uL (0.0-0.7); #Lymphocytes 1.8 thou/uL (1.20-3.40); #Monocytes 0.9 thou/uL (0.11-0.59); #Neutrophils 14.7 thou/uL (1.40-6.50); %Basophils 0.2 % (0.0-1.0); %Eosinophils 0.7 % (0.0-10.0); %Monocytes 5.3 % (0.0-10.0); %Neutrophils 83.9 % (42.0-75.0); Hemoglobin 10.6 g/dL (12.0-16.0); Mean Corpuscular HGB CONC 31.9 g/dL (32.0-36.0); Mean Corpuscular Hemoglobin 29.8 pg (27.0-31.0); Mean Corpuscular Volume 93.4 fL (78.0-98.0); Mean Platelet Volume 7.8 fL (7.4-10.4); Platelet Count 390 thou/uL (130-400); RBC Distribution Width 14.2 % (11.5-14.5); Red Blood Cell (RBC) Count 3.55 mill/uL (4.20-5.40); White Blood Cell (WBC) Count 17.5 thou/uL (4.8-10.8)
[2018-05-21 01:06] LABS: ALT (SGPT) 54 U/L (8-55); AST (SGOT) 35 U/L (5-34); Albumin 3.8 g/dL (3.4-4.8); Alkaline Phosphatase 258 U/L (40-150); Anion Gap 14 mmol/L (10-20); BUN (Urea Nitrogen) 25 mg/dL (9.8-20.1); Bilirubin, Total 0.2 mg/dL (0.2-1.2); Calc. Creatinine Clearance 0 mL/min (70-130); Calcium 10.1 mg/dL (7.8-10.44); Carbon Dioxide 23 mmol/L (23-31); Chloride 101 mmol/L (98-107); Estimated GFR-MDRD 56; Globulin 3.5 g/dL (2.4-3.5); Glucose 201 mg/dL (80-115); Lipase 46 U/L (8-78); Potassium 4.5 mmol/L (3.5-5.1); Protein, Total 7.3 g/dL (6.0-8.3); Sodium 133 mmol/L (136-145)
[2018-05-21] MEDS ORDERED: Nitroglycerin 0.4 MG TAB (25 Tab Bottle) ONE (03:11)
[2018-05-21] MEDS ORDERED: Acetaminophen 325 MG TAB PO PRN (03:43)
[2018-05-21] MEDS ORDERED: Ondansetron PF 4 MG/2 ML Vial IVP PRN (03:43)
[2018-05-21] MEDS ORDERED: Aspirin 300 MG Suppository PR SCH (03:45)
[2018-05-21] MEDS ORDERED: Dextrose 50% Abboject 50 ML SYRINGE SLOW IVP PRN (03:47)
[2018-05-21] MEDS ORDERED: Dextrose 5% in Water 1,000 ML IV PRN (03:47)
[2018-05-21] MEDS ORDERED: HumaLOG 300 UNITS/3 ML VIAL SC PRN (03:47)
[2018-05-21 05:11] VITALS: BMI 32.3
[2018-05-21] MEDS ORDERED: Regadenoson 0.4 MG/5 ML SYRINGE ONE (08:28)
--- NOTE | 2018-05-21 08:39 | RAD ---
THREE VIEWS RIGHT HAND: DATE: 05/21/2018. PROVIDED CLINICAL HISTORY: Right hand pain. FINDINGS: Comparison 02/22/2012 from [facility]. Interval changes of proximal row corpectomy with t he exception of the fusiform. There is no evidence for a fracture or other acute osseous abnormality . Benign-appearing lucency in the distal radial metaphyseal region. Generalized regional osteopenia . Joint spaces appear preserved. IMPRESSION: No evidence for an acute osseous abnormality. If there is persistent clinical concern, conservative management and followup imaging are advised. POS: [facility]
--- NOTE | 2018-05-21 08:42 | RAD ---
PORTABLE CHEST: DATE: 05/21/2018. PROVIDED CLINICAL HISTORY: Chest pain. FINDINGS: Comparison 05/26/2017. Cardiac and mediastinal silhouette is within normal limits. Lungs appear griselda ar. No pleural fluid or pneumothorax apparent. IMPRESSION: No evidence for an acute cardiopulmonary process. POS: [facility]
--- NOTE | 2018-05-21 08:43 | CT ---
PRELIMINARY REPORT/[facility]/EMERGENTY AFTER-HOURS PROCEDURE CT Angiography Chest With Contrast EXAM DATE/TIME: 05/21/2018 1:32 AM CLINICAL HISTORY: 67 years old, female; Pain; Chest pain; On breathing; Patient HX: Chest pain and left arm pain that s tarted this evening. Ems gave 324mg asa. Gal TECHNIQUE: Axial computed tomographic angiography images of the chest with intravenous contrast using CT angiogr aphy protocol. MIP reconstructed images were created and reviewed. COMPARISON: No relevant prior studies available. FINDINGS: Pulmonary arteries: No definite filling defect to suggest the diagnosis of acute pulmonary embolus. Aorta: No evidence of thoracic aortic dissection or focal aneurysm. Lungs: 5 mm calcified granuloma in the superior segment of the right lower lobe. No significant paren chymal lung opacity or mass. Pleural space: No pleural fluid. Heart: Suspect a coronary artery stent in the proximal LAD, versus coronary calcifications. Mediastinum: No evidence for pneumomediastinum or pneumothorax. Suspect a small hiatal hernia. Gallbladder and bile ducts: Prior cholecystectomy, no significant/definite biliary tree dilation. Upper abdomen: Images that include the upper abdomen otherwise appear essentially unremarkable. Lymph nodes: No significant hilar or mediastinal lymphadenopathy. Bones/joints: No significant acute finding. Soft tissues: No significant acute finding. IMPRESSION: 1. No evidence of acute pulmonary embolus. 2. No evidence of thoracic aortic dissection or focal aneurysm. 3. Suspect a coronary artery stent in the proximal LAD. 4. Essentially clear lungs, no pleural fluid. 5. Other details/findings discussed above. Thank you for allowing us to participate in the care of your patient. Dictated and Authenticated by: Schuyler Xiong MD 05/21/2018 2:39 AM Central Time ([place] & [place]) FINAL REPORT CT PULMONARY ANGIOGRAM WITH IV CONTRAST AND 3D MIP RECONSTRUCTIONS: IMPRESSION: Agree with the preliminary interpretation given by [facility]. POS: [facility]
[2018-05-21] MEDS ORDERED: Enoxaparin Sodium 40 MG/0.4 ML SYRINGE SC SCH (09:00)
[2018-05-21 10:23] LABS: Bilirubin Negative (Negative); Blood, Urine Negative (Negative); Clarity CLEAR (Clear); Glucose, Urine (Dipstick) Negative (Negative); Leukocyte Negative (Negative); Nitrite Negative (Negative); Protein, Urine (Dipstick) Negative (Neg-Trace); Urobilinogen 0.2 mg/dL (0.2-1.0); pH, Urine 7.5 (5.0-9.0)
[2018-05-21 11:41] VITALS: TEMP 99.1
--- NOTE | 2018-05-21 11:44 | NM ---
RADIONUCLIDE MYOCARDIAL PERFUSION STRESS TEST: The patient was stressed using 0.4 mg of LexiScan given IV. Multiplanar quantitative gated SPECT tavo ges performed. Images demonstrate no evidence of significant decreased perfusion on the stress images. Ejection fra ction measures 72%. IMPRESSION: Normal myocardial perfusion study with no evidence of abnormality seen on the stress images to sugges t myocardial ischemia or scar. POS: [facility]
[2018-05-21] MEDS ORDERED: Acetaminophen/Codeine 30-300mg Tablet PO PRN (12:39)
[2018-05-21] MEDS ORDERED: Ketorolac Tromethamine 30 MG/ML VIAL ONE (13:20)
[2018-05-21] MEDS ORDERED: Ketorolac Tromethamine 30 MG/ML VIAL IVP SCH (13:30)
[2018-05-21] MEDS ORDERED: Iopamidol 370 76% 100 ML VIAL ONE (13:35)
--- NOTE | 2018-05-21 13:37 | RAD ---
LEFT SHOULDER RADIOGRAPHS 3 VIEWS: DATE: 05/21/2018. PROVIDED CLINICAL HISTORY: Left shoulder pain. FINDINGS: No evidence for a fracture or other acute osseous abnormality. Glenohumeral relationship appears nor mal. Subacromial space appears preserved. Acromioclavicular and degenerative changes are seen. Vis ualized left lung field appears clear. IMPRESSION: Acromioclavicular joint degenerative change. POS: [facility]
[2018-05-21 14:36] LABS: #Eosinphils 0.1 thou/uL (0.0-0.7); #Lymphocytes 2.2 thou/uL (1.20-3.40); #Monocytes 1.7 thou/uL (0.11-0.59); #Neutrophils 15.1 thou/uL (1.40-6.50); %Basophils 0.2 % (0.0-1.0); %Eosinophils 0.6 % (0.0-10.0); %Lymphocytes 11.6 % (21.0-51.0); %Monocytes 8.7 % (0.0-10.0); %Neutrophils 78.9 % (42.0-75.0); Hemoglobin 10.5 g/dL (12.0-16.0); Mean Corpuscular HGB CONC 31.7 g/dL (32.0-36.0); Mean Corpuscular Hemoglobin 29.6 pg (27.0-31.0); Mean Corpuscular Volume 93.5 fL (78.0-98.0); Platelet Count 394 thou/uL (130-400); RBC Distribution Width 14.3 % (11.5-14.5); Red Blood Cell (RBC) Count 3.56 mill/uL (4.20-5.40); White Blood Cell (WBC) Count 19.1 thou/uL (4.8-10.8)
[2018-05-21] MEDS ORDERED: Sodium Chloride 0.9% 500 ML IV SCH (14:45)
[2018-05-21] MEDS ORDERED: Sodium Chloride 0.9% 1,000 ML IV SCH (15:00)
--- NOTE | 2018-05-21 15:10 | PDOC.EVN ---
Event Note - Event Note Event Note: Ms. Johnson was seen with Ms. Jennifer CALDERÓN. She presented to the ER with Chest pain.. This has since resolved. Stress test was negative. She now notes some shoulder pain, wrist, and ankle pain, most of which is chronic. She does not appear ill. She has some mild RUQ discomfort, but this is being elevated by GI. It is unclear why her WBC count is elevated, but CXR, and UA are clear. She has an appointment with her Primary Care provider in 3-4 days, and lab work scheduled for the end of the week. She can be discharged with plans outlined by .
[2018-05-21 15:33] VITALS: BP 164/70
--- NOTE | 2018-05-22 05:35 | SS ---
DATE OF ADMISSION: 05/21/2018 DATE OF DISCHARGE: 05/21/2018 PRIMARY CARE PHYSICIAN: Dr. Ravi Bolivar. RAYON CONER: Dr. Lloyd. ORTHOPEDIC: Dr. Rossi. CONSULTANTS: None. PROCEDURES: 1. The patient had a chest x-ray, showed no evidence of acute pulmonary process. 2. Had a hand x-ray of right hand, which showed no evidence of acute abnormality. 3. The patient also had chest and thorax CTA. IMPRESSION: No evidence of acute pulmonary embolus. No evidence of thoracic aortic dissection or aneurysm. Probably coronary artery stent in proximal left anterior descending. Essentially cleared lungs. No pleural fluid. The patient also had a left shoulder x-ray, which showed some joint degenerative changes. The patient also had a stress test, which showed normal myocardial perfusion study. Ejection fracture at 72%. HOSPITAL COURSE: Ms. Johnson is a 67-year-old female who presented to the emergency room for an evaluation of chest pain. Reports some pain in the left shoulder, which radiated to the right side of her chest. Reports pain is sharp in nature. Denies doing anything in particular when this pain started, denied it was relieved by anything. The patient has a past medical history of CAD with stent placement, number of stents are 3. She has a history of asthma. She had a myocardial infarction in the past, diabetes type 2, hypertension, and osteoarthritis. Based on her history and her symptoms, the patient was admitted to the observation unit for evaluation. Troponins x3 were performed; they were all 3 indeterminate. BNP was 39.8. The patient, based on shortness of breath, also had an elevated D-dimer, so a CTA chest was performed; findings are described above. The patient underwent a stress test with nuclear medicine, which was negative. Of note, the patient was noted to have a white blood cell count initially 17.5 and then 19.1 after the stress test. A urinalysis was negative. CTA of the chest and the chest x-ray were negative for any acute process. All x-rays, as described above were negative for any acute process. The patient reports that she has already scheduled close followup, was seen by Dr. Narvaez yesterday for intermittent epigastric upper abdominal pain, was examined and reports that she had some scan of her chest yesterday in his office, but does not remember what it was. She is scheduled to have an appointment with her PCP this week. After discussion with Dr. Urias, plan was to discharge home with close followup. Dr. Urias agreed to plan. PAST MEDICAL HISTORY: Includes coronary artery disease, [place] x1, stents x3, diabetes type 2, hypertension, osteoarthritis, and asthma. PAST SURGICAL HISTORY: Bilateral knee replacement, cardiac cath x2, bilateral carpal tunnel surgery. The patient did have cholecystectomy in February 2018. PSYCHIATRIC HISTORY: Does report history of anxiety. SOCIAL HISTORY: Denies alcohol use, denies drug use. Denies any smoking history. FAMILY HISTORY: Unable to determine. REVIEW OF SYSTEMS: CONSTITUTIONAL: The patient denies chills, fever. EYES: Denies any vision changes. ENT: Denies any ears, nose and throat soreness. CARDIOVASCULAR: Does report some chest pain, which starts in the left side and then radiates to her right. RESPIRATORY: Denies cough. Denies shortness of breath. GASTROINTESTINAL: Reports intermittent upper abdominal pain. Denies any nausea, vomiting, or diarrhea. MUSCULOSKELETAL: Reports multiple joint pain on bilateral ankles, bilateral wrists, left shoulder. SKIN: Denies any rash or skin changes. NEUROLOGIC: Denies any focal, sensory, or motor deficits. ENDOCRINE: Negative review of system. HEMOLYMPHATIC: Normal review of system. PSYCH: Reports history of anxiety. Notes, all other review of systems are negative except as listed in the hospital course. PHYSICAL EXAMINATION: VITAL SIGNS: Temperature is 98.7, heart rate is 81, respirations are 20, and blood pressure 153/88. CONSTITUTIONAL: The patient is in no apparent distress. She is alert and oriented to person, place, thing, and time. HEAD: Atraumatic and normocephalic. EYES: Findings are normal. Eyelids are normal to inspection. Pupils are equally round and reactive to light. Extraocular muscles are intact. ENT: Mouth exam is normal. Mucous membranes are moist. NECK: Normal range of motion. Trachea is midline. RESPIRATORY/CHEST: Breath sounds are clear bilaterally. CHEST: Movement is symmetrical. CARDIOVASCULAR: Regular rate and rhythm. S1 and S2. Heart sounds are normal. ABDOMEN: Nontender. Bowel sounds are heard. BACK: Normal range of motion. Normal inspection. EXTREMITIES: Upper extremities; normal range of motion, normal strength. Does have braces to bilateral wrists. Sensation is intact. Radial pulses are normal bilaterally. Lower extremities; inspection is normal, normal range of motion. Has a brace on the right ankle. Pedal pulses are normal bilaterally. No pedal edema is noted. NEURO: The patient is oriented to person, place, and time. Speech is normal. No focal or motor deficits. No focal or sensory deficits. SKIN: Warm, dry, and normal in color. LYMPHATICS: Normal. PSYCH: The patient is alert to person, place, and time. Has a normal affect. DIAGNOSTIC DATA: EKG interpretation in the emergency room, normal sinus rhythm, beats per minute is 80. No ectopic conduction ST. T-waves are all normal. [place] is normal. LABORATORY DATA: White blood cell count 17.5, RBC is 3.55, hemoglobin 10.6, hematocrit 33.2, and platelet count is 390. D-dimer 0.6. Chemistry, sodium 133, potassium 4.5, chloride 101, BUN is 25, creatinine is 1.17. Estimated GFR is 56. Glucose 201, calcium 10.1. Troponins x3, all undetectable at less than 0.010. BNP 39.8. AST is 35, ALT is 54, alkaline phosphatase 258, lipase is 46. UA is negative. DISCHARGE DIAGNOSES: 1. Chest pain, etiology is unknown. 2. History of asthma. 3. History of hypertension. 4. History of arthritis. 5. Leukocytosis, etiology unknown. DISPOSITION: The patient will be discharged to home on her medications, which include, 1. Albuterol inhaler 2 puffs q.4 hours as needed. 2. Aspirin 81 mg p.o. daily. 3. Atenolol 100 mg p.o. daily. 4. Azopt 1% ophthalmic solution 1 drop each eye b.i.d. 5. Vitamin D 1000 units p.o. daily. 6. Celexa 20 mg p.o. daily. 7. Clobetasol emollient 0.05% cream topical b.i.d. 8. Enalapril/hydrochlorothiazide 10/25 mg 1 tablet b.i.d. 9. Latanoprost 1 drop each eye at bedtime. 10. Reglan 10 mg p.o. b.i.d. 11. Nexium 20 mg p.o. b.i.d. 12. Actos 45 mg p.o. daily. 13. Pravastatin 40 mg p.o. at bedtime. 14. Tizanidine 4 mg p.o. t.i.d. p.r.n. as needed. 15. Triamcinolone topical b.i.d. 16. Ambien 10 mg p.o. at bedtime. 17. Tylenol 650 mg p.o. q.4. ALLERGIES: THE PATIENT IS ALLERGIC TO DOXYCYCLINE AND PENICILLINS. DISPOSITION: The patient was discharged in stable condition. The patient discharged home. FOLLOWUP: The patient should follow up with Dr. Bolivar within the next week as scheduled. She will follow up with Dr. lLoyd. Instructed to call his office on Wednesday for a followup appointment. Follow up with Dr. Narvaez as scheduled. Job ID: [id number]
--- NOTE | 2018-05-22 22:39 | HP ---
PRIMARY CARE DOCTOR: Dr. Ravi Bolivar. TIME OF EVALUATION: 3 a.m. CODE STATUS: Full code. CHIEF COMPLAINT: Chest pain. HISTORY OF PRESENT ILLNESS: This is a 67-year-old female patient with past medical history of multiple comorbidities including coronary artery disease, status post stents placement; asthma; history of NC; diabetes, type 2; and hypertension, who came to the hospital after having chest pain that was retrosternal, nonspecific radiation, 4/10, no clear triggers, no alleviating factors. when I was examining her. She reported that nitroglycerin REVIEW OF SYSTEMS: CONSTITUTIONAL: No fever, chills, or generalized weakness. RESPIRATORY: No cough, sputum production, or shortness of breath. CARDIOVASCULAR: Chest pain. No palpitations. GASTROINTESTINAL: No nausea. No vomiting, diarrhea, or abdominal pain. FLOOR SCRUBBER: No dizziness, headache, or feeling lightheaded. GENITOURINARY: No burning on urination. EXTREMITIES: Bilateral leg swelling. All other systems were reviewed and negative except for the findings mentioned above. PAST MEDICAL HISTORY: As mentioned in the HPI. FAMILY HISTORY: Reviewed and noncontributory for the current presentation. SOCIAL HISTORY: No alcohol. No drugs. No smoking history. PAST SURGICAL HISTORY: Bilateral knee replacement, CABG of 2 vessels, and spinal surgery. ALLERGIES: DOXYCYCLINE AND PENICILLIN REPORTED. MEDICATIONS: 1. Atenolol. 2. Aspirin. 3. Hydrocodone . PHYSICAL EXAMINATION: VITAL SIGNS: On presentation, blood pressure 158/110 with heart rate 80, respiratory rate was 20, and temperature 98.7. Pain was 7/10. GENERAL APPEARANCE: The patient is alert and oriented, not in acute distress. HEENT: Eyes, normal conjunctivae. Moist oral mucosa. Anicteric. NECK: No JVD. RESPIRATORY: Bilateral air entry. No rales. No wheezing. Symmetric expansion CARDIOVASCULAR: Normal rate, regular rhythm. No murmurs. No gallop. Bilateral leg edema. ABDOMEN: Soft. Normal bowel sounds. MUSCULOSKELETAL: Baseline range of motion and strength. No tenderness. SKIN: Warm and intact. No pallor. No rash. No redness. EXTREMITIES: Peripheral pulses are present. Capillary refill seems to be intact. NEURO: No evidence of any new focal weakness. Baseline speech. Cranial nerves seem to be intact. PSYCH: The patient is in good mood. No anxiety. Oriented. Optimal judgment. DIAGNOSTIC DATA: EKG was reviewed. The patient has normal sinus rhythm with a rate of 80. ST-segment and T-waves are normal. Chest x-ray was reviewed. CT chest was reviewed. It was negative for pulmonary embolism. No pneumothorax. No hemothorax. No infiltrate. No effusion. LABORATORY DATA: Labs were reviewed. White count 17.5, hemoglobin 10.6, MCV 93.4, and platelet count 390. D-dimer 0.6. Chemistry; sodium 133, potassium 4.5, chloride 101, carbon dioxide 23, anion gap 14, BUN 25, and creatinine 1.17. Previous creatinine was 0.86. GFR 56, glucose 201, calcium 10.1, total bilirubin 0.2, AST 35, ALT 64, and alkaline phosphatase 258. Beta-natriuretic peptide was normal, and troponin was normal. Lipase 46. ASSESSMENT AND PLAN: The patient will be placed in the hospital with following medical problems: 1. Chest pain, rule out acute coronary syndrome. The patient has risk factor, place the patient on monitor on tele, trend troponins, stress test will be done in the morning if all workup is negative. Might need continued evaluation given . 2. Uncontrolled hypertension. The patient presented with systolic high blood pressure, reconcile home medications, we will adjust treatment as needed. 3. Leukocytosis of 17.5, . There is no evidence of infection, we will monitor, we will treat accordingly. 4. Chronic normocytic anemia, we will monitor, we will treat accordingly. No need for any acute intervention at this point. This is mild. 5. D-dimer 0.6. CT angio was negative, no pulmonary embolism. 6. Hyponatremia with sodium of 133, this is mild, no need for any acute intervention, we will monitor, we will adjust treatment as needed. 7. Mild elevation in BUN and creatinine. The patient seems to be on the dry side. We will reconcile home medications, might need some gentle hydration. 8. Uncontrolled diabetes with glucose of 201, reconcile home medications, we will place the patient on sliding scale for optimal control. 9. Deep venous thrombosis prophylaxis. Job ID: [id number]
--- NOTE | 2018-05-26 14:26 | EKG ---
Test Reason : Blood Pressure : / mmHG Vent. Rate : 080 BPM Atrial Rate : 080 BPM P-R Int : 174 ms QRS Dur : 084 ms QT Int : 346 ms P-R-T Axes : 041 048 056 degrees QTc Int : 399 ms Normal sinus rhythm Normal ECG Confirmed by KAISER VALLE, MARY KATE Wayne ([id number]), fan mail editor EZRA AVILES ([id number]) on 05/26/2018 2:26:43 PM Referred By: Confirmed By:MARY KATE SAAB MD
== END 2018-05-21 17:08 | disposition home or self-care (01) ==
LOC: ERS 00:06 → 2SW 03:04
PROVIDERS: ADMIT Hospitalist; ATTEND Hospitalist
DX: R07.9 Chest pain, unspecified (principal); I25.10 Atherosclerotic heart disease of native coronary artery without angina pectoris; I10 Essential (primary) hypertension; I25.2 Old myocardial infarction; E11.65 Type 2 diabetes mellitus with hyperglycemia; J45.909 Unspecified asthma, uncomplicated; D64.9 Anemia, unspecified; E87.1 Hypo-osmolality and hyponatremia; M19.90 Unspecified osteoarthritis, unspecified site; Z96.653 Presence of artificial knee joint, bilateral; Z95.1 Presence of aortocoronary bypass graft; Z95.5 Presence of coronary angioplasty implant and graft; Z90.49 Acquired absence of other specified parts of digestive tract; Z88.1 Allergy status to other antibiotic agents; Z88.0 Allergy status to penicillin; Z79.82 Long term (current) use of aspirin; Z79.899 Other long term (current) drug therapy; Z98.890 Other specified postprocedural states
CPT/HCPCS: 71045; 71275; 73030; 73130; 78452; 80053; 81003; 82962; 83690; 83880; 84484 ×2; 85025 ×2; 85379; 87086; 93005; 93017; 96372; 96374; 96376; 99285; A9500; G0378 ×2; 36415; 36416; J1650; J1885; J2405; J2785

== ENCOUNTER 2018-06-05 09:53 | Emergency (ER) | payer MEDICARE, MEDICAID | END 2018-06-05 11:14 | disposition home or self-care (01) | LOC: EDBD 09:53 → ERS 09:53 | DX: M54.5 Low back pain (principal); G89.29 Other chronic pain; J45.909 Unspecified asthma, uncomplicated; I25.2 Old myocardial infarction; E11.9 Type 2 diabetes mellitus without complications; I10 Essential (primary) hypertension; M19.90 Unspecified osteoarthritis, unspecified site; F41.9 Anxiety disorder, unspecified | CPT/HCPCS: 99283 ==

== ENCOUNTER 2018-06-12 00:16 | Emergency (ER) | payer MEDICARE, MEDICAID ==
[2018-06-12 01:12] LABS: #Lymphocytes 1.5 thou/uL (1.20-3.40); #Monocytes 0.8 thou/uL (0.11-0.59); %Basophils 0.1 % (0.0-1.0); %Eosinophils 0.2 % (0.0-10.0); %Monocytes 6.5 % (0.0-10.0); %Neutrophils 81.2 % (42.0-75.0); Hemoglobin 10.1 g/dL (12.0-16.0); Mean Corpuscular HGB CONC 32.8 g/dL (32.0-36.0); Mean Corpuscular Hemoglobin 31.1 pg (27.0-31.0); Mean Corpuscular Volume 94.8 fL (78.0-98.0); Mean Platelet Volume 7.5 fL (7.4-10.4); Platelet Count 301 thou/uL (130-400); Red Blood Cell (RBC) Count 3.25 mill/uL (4.20-5.40); White Blood Cell (WBC) Count 12.3 thou/uL (4.8-10.8)
[2018-06-12 01:32] LABS: ALT (SGPT) 95 U/L (8-55); AST (SGOT) 67 U/L (5-34); Albumin 3.8 g/dL (3.4-4.8); Alkaline Phosphatase 263 U/L (40-150); Anion Gap 13 mmol/L (10-20); BUN (Urea Nitrogen) 38 mg/dL (9.8-20.1); Bilirubin, Total 0.3 mg/dL (0.2-1.2); Calc. Creatinine Clearance 0 mL/min (70-130); Carbon Dioxide 25 mmol/L (23-31); Chloride 100 mmol/L (98-107); Estimated GFR-MDRD 63; Globulin 3.5 g/dL (2.4-3.5); Glucose 182 mg/dL (80-115); Potassium 4.7 mmol/L (3.5-5.1); Protein, Total 7.3 g/dL (6.0-8.3); Sodium 133 mmol/L (136-145)
[2018-06-12] MEDS ORDERED: Ketorolac Tromethamine 30 MG/ML VIAL ONE (02:09)
--- NOTE | 2018-06-12 08:12 | RAD ---
THREE VIEWS LEFT SHOULDER: DATE: 06/12/2018. HISTORY: Left shoulder pain. FINDINGS: Coracoclavicular and acromioclavicular distances are within normal limits. There is mild acromioclav icular joint osteoarthritis. There is no fracture or dislocation. Views of the left shoulder are st able compared to the study on 05/21/2018. IMPRESSION: Stable mild acromioclavicular joint osteoarthritis. POS: [facility]
== END 2018-06-12 02:55 | disposition home or self-care (01) ==
LOC: ERS 00:16
DX: M25.512 Pain in left shoulder (principal); J45.909 Unspecified asthma, uncomplicated; I25.2 Old myocardial infarction; E11.9 Type 2 diabetes mellitus without complications; I10 Essential (primary) hypertension; F41.9 Anxiety disorder, unspecified; M19.90 Unspecified osteoarthritis, unspecified site
CPT/HCPCS: 36415; 80053; 84484; 85025; 85652; 86140; 93005; 96374; J1885

== ENCOUNTER 2018-06-18 02:50 | Emergency (ER) | payer MEDICARE, MEDICAID ==
[2018-06-18] MEDS ORDERED: Ketorolac Tromethamine 30 MG/ML VIAL ONE (04:01)
[2018-06-18] MEDS ORDERED: Morphine 4 MG/ML VIAL ONE (04:01)
[2018-06-18 04:02] LABS: #Basophils 0.1 thou/uL (0.0-0.2); #Eosinphils 0.1 thou/uL (0.0-0.7); #Lymphocytes 2.1 thou/uL (1.20-3.40); #Monocytes 0.8 thou/uL (0.11-0.59); #Neutrophils 8.4 thou/uL (1.40-6.50); %Basophils 0.8 % (0.0-1.0); %Eosinophils 0.6 % (0.0-10.0); %Lymphocytes 18.2 % (21.0-51.0); %Neutrophils 73.4 % (42.0-75.0); Hemoglobin 9.7 g/dL (12.0-16.0); Mean Corpuscular Hemoglobin 31.6 pg (27.0-31.0); Mean Corpuscular Volume 95.8 fL (78.0-98.0); Mean Platelet Volume 7.1 fL (7.4-10.4); Platelet Count 329 thou/uL (130-400); RBC Distribution Width 13.9 % (11.5-14.5); Red Blood Cell (RBC) Count 3.05 mill/uL (4.20-5.40); White Blood Cell (WBC) Count 11.5 thou/uL (4.8-10.8)
[2018-06-18 04:21] LABS: ALT (SGPT) 42 U/L (8-55); AST (SGOT) 27 U/L (5-34); Albumin 3.4 g/dL (3.4-4.8); Alkaline Phosphatase 182 U/L (40-150); Anion Gap 12 mmol/L (10-20); BUN (Urea Nitrogen) 19 mg/dL (9.8-20.1); Bilirubin, Total 0.2 mg/dL (0.2-1.2); Calc. Creatinine Clearance 0 mL/min (70-130); Calcium 9.6 mg/dL (7.8-10.44); Carbon Dioxide 28 mmol/L (23-31); Chloride 101 mmol/L (98-107); Estimated GFR-MDRD 71; Globulin 3.3 g/dL (2.4-3.5); Glucose 115 mg/dL (80-115); Magnesium 1.8 mg/dL (1.6-2.6); Protein, Total 6.7 g/dL (6.0-8.3); Sodium 137 mmol/L (136-145)
--- NOTE | 2018-06-18 07:42 | RAD ---
CHEST 1 VIEW: Date: 06/18/18 HISTORY: Chest pain. COMPARISON: Radiograph dated 05/21/18. FINDINGS: Lungs are clear. No pneumothorax or effusion. Cardiac silhouette and mediastinal contour is within no rmal limits. IMPRESSION: No acute intrathoracic abnormality. POS: [facility]
--- NOTE | 2018-06-18 08:43 | CT ---
PRELIMINARY REPORT/[facility]/EMERGENTY AFTER-HOURS PROCEDURE CT Angiography Chest With Contrast EXAM DATE/TIME: 06/18/2018 4:58 AM CLINICAL HISTORY: 68 years old, female; Pain; Chest pain; Left-sided chest pain; Patient HX: F 68 presents to ed with l eft sided rib and chest pain. PT reports stressful event prior to onset of pain. PT denies ever havin g similar pain in the past. Pain does not radiate. Pmh of dm and past mi. Associated with n/v, abd pa in. TECHNIQUE: Axial computed tomographic angiography images of the chest with intravenous contrast using CT angiogr aphy protocol. MIP reconstructed images were created and reviewed. COMPARISON: No relevant prior studies available. FINDINGS: Pulmonary arteries: See Great Vessels Off Aortic Arch Finding. Aorta: Normal. No aortic aneurysm. No aortic dissection. Great vessels off aortic arch: No dissection. No visualized embolism as characterized to the most pro ximal segmental level. Consider alternative form of imaging if indicated. Lungs: Lungs are well aerated without a focal area of consolidation. Pleural space: Normal. No pneumothorax. No pleural effusion. Heart: Borderline cardiomegaly No pericardial effusion Mediastinum: -Small hiatal hernia Gallbladder and bile ducts: Surgical clips are present in the region of the gallbladder fossa. Lymph nodes: Unremarkable. No enlarged lymph nodes. Bones/joints: The thoracic inlet is unremarkable. Soft tissues: Unremarkable. IMPRESSION: 1. No dissection. No visualized embolism as characterized to the most proximal segmental level. Consi justen alternative form of imaging if indicated. 2. Lungs are well aerated without a focal area of consolidation. Thank you for allowing us to participate in the care of your patient. Dictated and Authenticated by: Arik Lobo MD 06/18/2018 7:05 AM Central Time ([place] & [place]) FINAL REPORT CT ANGIOGRAM CHEST WITH CONTRAST: Date: 06/18/18 HISTORY: Chest pain. COMPARISON: CT dated 05/21/18. TECHNIQUE: CT angiogram of chest performed after the intravenous administration of contrast. 3D rendering is pro vided. FINDINGS/IMPRESSION: Findings and impression are concordant with the preliminary report by Maci. Multiple healing left-sided rib fractures. POS: [facility]
[2018-06-18] MEDS ORDERED: Iopamidol 370 76% 100 ML VIAL ONE (17:07)
== END 2018-06-18 07:50 | disposition home or self-care (01) ==
LOC: ERS 02:50
DX: R07.89 Other chest pain (principal); J45.909 Unspecified asthma, uncomplicated; I25.2 Old myocardial infarction; E11.9 Type 2 diabetes mellitus without complications; I10 Essential (primary) hypertension; F41.9 Anxiety disorder, unspecified
CPT/HCPCS: 36415; 71045; 71275; 80053; 83735; 84484; 85025; 85379; 93005; 96374; 96375; J1885; J2270

== ENCOUNTER 2018-06-23 08:20 | Emergency (ER) | payer MEDICARE, MEDICAID | END 2018-06-23 10:09 | disposition home or self-care (01) | LOC: ERS 08:20 | DX: G89.29 Other chronic pain (principal); M25.519 Pain in unspecified shoulder; J45.909 Unspecified asthma, uncomplicated; I25.2 Old myocardial infarction; E11.9 Type 2 diabetes mellitus without complications; I10 Essential (primary) hypertension; F41.9 Anxiety disorder, unspecified; Z79.899 Other long term (current) drug therapy | CPT/HCPCS: 99281 ==

== ENCOUNTER 2018-07-13 08:45 | Emergency (ER) | payer MEDICARE, MEDICAID ==
--- NOTE | 2018-07-13 09:21 | RAD ---
LEFT FOOT THREE VIEWS: History: Injury to foot. FINDINGS: There is soft tissue swelling involving the midfoot and forefoot. Swelling is seen both dorsally and ventrally on the lateral view. There is enthesophyte from the plantar calcaneus. Tarsals appear intact. Tarsal metatarsal alignment appears maintained. The metatarsals and phalanges appear intact. There are extension deformities at t he MTP joints. Mild degenerative change at the first MTP joint. IMPRESSION: Soft tissue swelling involving the midfoot and forefoot. No acute fracture identified. POS: [facility]
== END 2018-07-13 10:04 | disposition home or self-care (01) ==
LOC: ERS 08:45
DX: S90.32XA Contusion of left foot, initial encounter (principal); J45.909 Unspecified asthma, uncomplicated; E11.9 Type 2 diabetes mellitus without complications; I10 Essential (primary) hypertension; F41.9 Anxiety disorder, unspecified; I25.2 Old myocardial infarction; Z79.899 Other long term (current) drug therapy; W20.8XXA Other cause of strike by thrown, projected or falling object, initial encounter

== ENCOUNTER 2018-07-16 14:09 | Emergency (ER) | payer MEDICARE, MEDICAID | END 2018-07-16 15:53 | disposition home or self-care (01) | LOC: ERS 14:09 | DX: M79.671 Pain in right foot (principal); J45.909 Unspecified asthma, uncomplicated; I25.2 Old myocardial infarction; E11.9 Type 2 diabetes mellitus without complications; I10 Essential (primary) hypertension; F41.9 Anxiety disorder, unspecified; Z79.899 Other long term (current) drug therapy | CPT/HCPCS: 99283 ==

== ENCOUNTER 2018-08-11 09:00 | Outpatient (CLI) | payer MEDICARE | END 2018-08-11 09:01 | disposition home or self-care (01) | LOC: BICMAMMO 09:00 | PROVIDERS: ATTEND Family Medicine | DX: Z12.31 Encounter for screening mammogram for malignant neoplasm of breast (principal); Z85.89 Personal history of malignant neoplasm of other organs and systems | CPT/HCPCS: 77063; 77067 ==

== ENCOUNTER 2018-09-11 12:32 | Emergency (ER) | payer SELFPAY ==
[2018-09-11] MEDS ORDERED: hydrOXYzine Pamoate 25 mg Capsule ONE ×2 (14:20→14:21)
== END 2018-09-11 14:26 | disposition home or self-care (01) ==
LOC: EDBD → ERS 12:32 → MERGE 12:32 → ERS 14:26
DX: M54.5 Low back pain (principal); G89.29 Other chronic pain; F41.9 Anxiety disorder, unspecified; E11.9 Type 2 diabetes mellitus without complications; I10 Essential (primary) hypertension; J45.909 Unspecified asthma, uncomplicated; M19.90 Unspecified osteoarthritis, unspecified site
CPT/HCPCS: 99283; Q0177

== ENCOUNTER 2018-09-13 09:03 | Emergency (ER) | payer MEDICARE, SELFPAY ==
[2018-09-13] MEDS ORDERED: hydrOXYzine Pamoate 25 mg Capsule ONE (09:22)
[2018-09-13] MEDS ORDERED: hydrOXYzine 25 MG TAB ONE ×3 (09:24→09:31)
== END 2018-09-13 09:35 | disposition home or self-care (01) ==
LOC: EDBD → ERS 09:03 → MERGE 09:03 → ERS 09:35
DX: F41.9 Anxiety disorder, unspecified (principal); E11.9 Type 2 diabetes mellitus without complications; J45.909 Unspecified asthma, uncomplicated; I10 Essential (primary) hypertension; M19.90 Unspecified osteoarthritis, unspecified site
CPT/HCPCS: 99283; Q0177

== ENCOUNTER 2018-10-03 12:19 | Emergency (ER) | payer MEDICARE, OTHER ==
[2018-10-03] MEDS ORDERED: Ketorolac Tromethamine 30 MG/ML VIAL ONE (12:57)
== END 2018-10-03 13:15 | disposition home or self-care (01) ==
LOC: ERS 12:19
DX: M25.511 Pain in right shoulder (principal); J45.909 Unspecified asthma, uncomplicated; I25.2 Old myocardial infarction; E11.9 Type 2 diabetes mellitus without complications; I10 Essential (primary) hypertension; F41.9 Anxiety disorder, unspecified
CPT/HCPCS: 96372; 99281; J1885

== ENCOUNTER 2018-10-09 09:18 | Emergency (ER) | payer MEDICARE, MEDICAID ==
[2018-10-09] MEDS ORDERED: Ketorolac Tromethamine 30 MG/ML VIAL ONE (09:35)
== END 2018-10-09 09:53 | disposition home or self-care (01) ==
LOC: ERS 09:18
DX: G89.29 Other chronic pain (principal); M79.601 Pain in right arm; M79.604 Pain in right leg; J45.909 Unspecified asthma, uncomplicated; I25.2 Old myocardial infarction; E11.9 Type 2 diabetes mellitus without complications; I10 Essential (primary) hypertension; F41.9 Anxiety disorder, unspecified; Z79.899 Other long term (current) drug therapy; Z79.82 Long term (current) use of aspirin
CPT/HCPCS: 96372; J1885

== ENCOUNTER 2018-10-11 12:18 | Emergency (ER) | payer MEDICARE, MEDICAID | END 2018-10-11 13:40 | disposition home or self-care (01) | LOC: ERS 12:18 | DX: M25.511 Pain in right shoulder (principal); G89.29 Other chronic pain; J45.909 Unspecified asthma, uncomplicated; I25.2 Old myocardial infarction; F41.9 Anxiety disorder, unspecified; E11.9 Type 2 diabetes mellitus without complications; Z79.899 Other long term (current) drug therapy; Z79.82 Long term (current) use of aspirin; I10 Essential (primary) hypertension | CPT/HCPCS: 99281 ==

== ENCOUNTER 2019-01-20 16:50 | Emergency (ER) | payer MEDICARE, OTHER ==
[2019-01-20] MEDS ORDERED: hydrOXYzine 25 MG TAB ONE (17:32)
[2019-01-20] MEDS ORDERED: Ketorolac Tromethamine 30 MG/ML VIAL ONE (17:32)
== END 2019-01-20 17:38 | disposition home or self-care (01) ==
LOC: ERS 16:50 → EDBD 16:50 → ERS 17:38
DX: F41.9 Anxiety disorder, unspecified (principal); G89.29 Other chronic pain; J45.909 Unspecified asthma, uncomplicated; I25.2 Old myocardial infarction; E11.9 Type 2 diabetes mellitus without complications; I10 Essential (primary) hypertension; M19.90 Unspecified osteoarthritis, unspecified site; Z79.82 Long term (current) use of aspirin; Z95.5 Presence of coronary angioplasty implant and graft; Z79.899 Other long term (current) drug therapy
CPT/HCPCS: 96372; 99283; J1885

== ENCOUNTER 2019-01-21 11:13 | Emergency (ER) | payer OTHER ==
[2019-01-21] MEDS ORDERED: Ondansetron ODT 4 MG TAB ONE (12:15)
[2019-01-21] MEDS ORDERED: Citalopram 20 MG TAB PO SCH (12:30)
[2019-01-21] MEDS ORDERED: Ondansetron ODT 4 MG TAB PO SCH (12:30)
== END 2019-01-21 12:55 | disposition home or self-care (01) ==
LOC: EDBD → MERGE 11:13 → ERS 11:13
DX: R11.2 Nausea with vomiting, unspecified (principal); F41.9 Anxiety disorder, unspecified
CPT/HCPCS: 99283; Q0162

== ENCOUNTER 2019-01-22 07:08 | Emergency (ER) | payer MEDICARE, OTHER ==
[2019-01-22] MEDS ORDERED: Lorazepam 1 MG TAB ONE ×2 (07:33→07:38)
[2019-01-22 07:47] LABS: #Basophils 0.1 thou/uL (0.0-0.2); #Eosinphils 0.3 thou/uL (0.0-0.7); #Lymphocytes 2.5 thou/uL (1.20-3.40); #Neutrophils 5.1 thou/uL (1.40-6.50); %Eosinophils 3.1 % (0.0-10.0); %Lymphocytes 27.8 % (21.0-51.0); %Monocytes 11.1 % (0.0-10.0); %Neutrophils 57.1 % (42.0-75.0); Hemoglobin 10.5 g/dL (12.0-16.0); Mean Corpuscular HGB CONC 32.5 g/dL (32.0-36.0); Mean Corpuscular Hemoglobin 31.8 pg (27.0-31.0); Mean Platelet Volume 7.1 fL (7.4-10.4); Platelet Count 259 thou/uL (130-400); RBC Distribution Width 12.3 % (11.5-14.5); Red Blood Cell (RBC) Count 3.31 mill/uL (4.20-5.40); White Blood Cell (WBC) Count 8.9 thou/uL (4.8-10.8)
[2019-01-22 08:06] LABS: ALT (SGPT) 28 U/L (8-55); AST (SGOT) 30 U/L (5-34); Albumin 3.9 g/dL (3.4-4.8); Alkaline Phosphatase 94 U/L (40-150); Anion Gap 14 mmol/L (10-20); BUN (Urea Nitrogen) 15 mg/dL (9.8-20.1); Bilirubin, Total 0.4 mg/dL (0.2-1.2); Calc. Creatinine Clearance 0 mL/min (70-130); Calcium 10.7 mg/dL (7.8-10.44); Carbon Dioxide 27 mmol/L (23-31); Chloride 100 mmol/L (98-107); Estimated GFR-MDRD 72; Globulin 2.9 g/dL (2.4-3.5); Glucose 132 mg/dL (80-115); Magnesium 1.5 mg/dL (1.6-2.6); Protein, Total 6.8 g/dL (6.0-8.3); Sodium 137 mmol/L (136-145)
[2019-01-22] MEDS ORDERED: Magnesium 2 GM/50 ML BAG (IN WATER) ONE (08:31)
== END 2019-01-22 11:15 | disposition home or self-care (01) ==
LOC: EDBD 07:08 → MERGE 07:08 → ERS 07:08
DX: F41.1 Generalized anxiety disorder (principal); E11.9 Type 2 diabetes mellitus without complications; I10 Essential (primary) hypertension
CPT/HCPCS: 36415; 80053; 83735; 84443; 85025; 93005; 96365; J3475

== ENCOUNTER 2019-02-23 14:50 | Emergency (ER) | payer OTHER ==
[2019-02-23] MEDS ORDERED: Ketorolac Tromethamine 30 MG/ML VIAL ONE (16:15)
== END 2019-02-23 16:29 | disposition home or self-care (01) ==
LOC: ERS 14:50
DX: M54.2 Cervicalgia (principal); F41.0 Panic disorder [episodic paroxysmal anxiety]; J45.909 Unspecified asthma, uncomplicated; I25.2 Old myocardial infarction; E11.9 Type 2 diabetes mellitus without complications; I10 Essential (primary) hypertension; M19.90 Unspecified osteoarthritis, unspecified site; F41.9 Anxiety disorder, unspecified; Z79.82 Long term (current) use of aspirin; Z95.5 Presence of coronary angioplasty implant and graft; Z79.899 Other long term (current) drug therapy
CPT/HCPCS: 96372; 99281; J1885

== ENCOUNTER 2019-03-19 10:21 | Emergency (ER) | payer OTHER ==
[2019-03-19] MEDS ORDERED: Ketorolac Tromethamine 30 MG/ML VIAL ONE ×2 (11:41→11:42)
== END 2019-03-19 11:45 | disposition home or self-care (01) ==
LOC: ERS 10:21
DX: R51 Headache (principal); M54.2 Cervicalgia; J45.909 Unspecified asthma, uncomplicated; I25.2 Old myocardial infarction; E11.9 Type 2 diabetes mellitus without complications; I10 Essential (primary) hypertension; M19.90 Unspecified osteoarthritis, unspecified site; F41.9 Anxiety disorder, unspecified; Z79.82 Long term (current) use of aspirin; Z79.899 Other long term (current) drug therapy
CPT/HCPCS: 96372; 99283; J1885

== ENCOUNTER 2019-03-26 10:10 | Emergency (ER) | payer OTHER ==
[2019-03-26] MEDS ORDERED: Ibuprofen 200 MG TAB ONE (11:09)
== END 2019-03-26 11:19 | disposition home or self-care (01) ==
LOC: ERS 10:10
DX: M54.5 Low back pain (principal); I10 Essential (primary) hypertension; I25.2 Old myocardial infarction; E11.9 Type 2 diabetes mellitus without complications; F41.9 Anxiety disorder, unspecified; Z79.899 Other long term (current) drug therapy
CPT/HCPCS: 99283

== ENCOUNTER 2019-04-04 15:09 | Emergency (ER) | payer OTHER | END 2019-04-04 16:34 | disposition home or self-care (01) | LOC: ERS 15:09 | DX: M19.011 Primary osteoarthritis, right shoulder (principal); J45.909 Unspecified asthma, uncomplicated; I25.2 Old myocardial infarction; E11.9 Type 2 diabetes mellitus without complications; I10 Essential (primary) hypertension; F41.9 Anxiety disorder, unspecified; Z79.899 Other long term (current) drug therapy; Z79.84 Long term (current) use of oral hypoglycemic drugs; Z79.82 Long term (current) use of aspirin | CPT/HCPCS: 99281 ==

== ENCOUNTER 2019-04-10 08:56 | Emergency (ER) | payer OTHER ==
--- NOTE | 2019-04-10 10:06 | RAD ---
AP CHEST: Date: 04/10/19 HISTORY: Chest pain. FINDINGS: The lung baig are clear. Heart and mediastinum appear unremarkable. Vasculature within normal range . IMPRESSION: No acute findings. POS: [facility]
[2019-04-10 10:08] LABS: #Basophils 0.1 thou/uL (0.0-0.2); #Eosinphils 0.2 thou/uL (0.0-0.7); #Lymphocytes 2.3 thou/uL (1.20-3.40); #Monocytes 0.8 thou/uL (0.11-0.59); #Neutrophils 5.1 thou/uL (1.40-6.50); %Basophils 0.7 % (0.0-1.0); %Eosinophils 2.5 % (0.0-10.0); %Lymphocytes 27.6 % (21.0-51.0); %Monocytes 9.3 % (0.0-10.0); %Neutrophils 59.9 % (42.0-75.0); Mean Corpuscular HGB CONC 31.8 g/dL (32.0-36.0); Mean Corpuscular Hemoglobin 31.4 pg (27.0-31.0); Mean Corpuscular Volume 98.5 fL (78.0-98.0); Mean Platelet Volume 7.3 fL (7.4-10.4); Platelet Count 296 thou/uL (130-400); RBC Distribution Width 12.6 % (11.5-14.5); Red Blood Cell (RBC) Count 3.18 mill/uL (4.20-5.40); White Blood Cell (WBC) Count 8.5 thou/uL (4.8-10.8)
[2019-04-10 10:23] LABS: ALT (SGPT) 20 U/L (8-55); AST (SGOT) 17 U/L (5-34); Alkaline Phosphatase 86 U/L (40-110); Anion Gap 12 mmol/L (10-20); BUN (Urea Nitrogen) 14 mg/dL (9.8-20.1); Bilirubin, Total 0.3 mg/dL (0.2-1.2); Calc. Creatinine Clearance 0 mL/min (70-130); Calcium 9.7 mg/dL (7.8-10.44); Carbon Dioxide 28 mmol/L (23-31); Chloride 101 mmol/L (98-107); Estimated GFR-MDRD 76; Globulin 2.5 g/dL (2.4-3.5); Glucose 112 mg/dL (80-115); Potassium 3.7 mmol/L (3.5-5.1); Protein, Total 6.5 g/dL (6.0-8.3); Sodium 137 mmol/L (136-145)
== END 2019-04-10 12:02 | disposition left against medical advice (07) ==
LOC: ERS 08:56
DX: Z53.21 Procedure and treatment not carried out due to patient leaving prior to being seen by health care provider (principal)
CPT/HCPCS: 36415; 71045; 80053; 84484; 85025; 93005

== ENCOUNTER 2019-04-16 08:45 | Emergency (ER) | payer OTHER ==
[2019-04-16] MEDS ORDERED: Ondansetron ODT 4 MG TAB ONE (09:56)
[2019-04-16 09:59] LABS: #Basophils 0.1 thou/uL (0.0-0.2); #Eosinphils 0.3 thou/uL (0.0-0.7); #Lymphocytes 2.5 thou/uL (1.20-3.40); #Monocytes 1.5 thou/uL (0.11-0.59); #Neutrophils 8.7 thou/uL (1.40-6.50); %Basophils 0.5 % (0.0-1.0); %Eosinophils 2.1 % (0.0-10.0); %Lymphocytes 19.2 % (21.0-51.0); %Monocytes 11.4 % (0.0-10.0); %Neutrophils 66.8 % (42.0-75.0); Hemoglobin 10.5 g/dL (12.0-16.0); Mean Corpuscular HGB CONC 32.5 g/dL (32.0-36.0); Mean Corpuscular Hemoglobin 31.9 pg (27.0-31.0); Mean Platelet Volume 7.5 fL (7.4-10.4); Platelet Count 294 thou/uL (130-400); RBC Distribution Width 12.6 % (11.5-14.5); Red Blood Cell (RBC) Count 3.31 mill/uL (4.20-5.40)
[2019-04-16 10:23] LABS: ALT (SGPT) 18 U/L (8-55); AST (SGOT) 17 U/L (5-34); Albumin 3.9 g/dL (3.4-4.8); Alkaline Phosphatase 84 U/L (40-110); Anion Gap 13 mmol/L (10-20); BUN (Urea Nitrogen) 14 mg/dL (9.8-20.1); Bilirubin, Total 0.5 mg/dL (0.2-1.2); Calc. Creatinine Clearance 0 mL/min (70-130); Carbon Dioxide 29 mmol/L (23-31); Chloride 99 mmol/L (98-107); Estimated GFR-MDRD 73; Globulin 3.1 g/dL (2.4-3.5); Glucose 156 mg/dL (80-115); Potassium 3.6 mmol/L (3.5-5.1); Sodium 137 mmol/L (136-145)
[2019-04-16 10:49] LABS: Bilirubin Negative (Negative); Blood, Urine Small (Negative); Glucose, Urine (Dipstick) Negative (Negative); Leukocyte Trace (Negative); Nitrite Negative (Negative); Protein, Urine (Dipstick) Negative (Neg-Trace)
[2019-04-16 10:50] LABS: Clarity Hazy (Clear)
[2019-04-16 10:56] LABS: RBC/HPF 0-3 HPF (0-3); Squamous Epithelial 0-3 HPF (0-3)
[2019-04-16 10:57] LABS: Bacteria/HPF 3+ HPF (None Seen)
[2019-04-16 10:59] LABS: Unclassified Crystals 1+ HPF (None Seen)
[2019-04-16] MEDS ORDERED: Ketorolac Tromethamine 30 MG/ML VIAL ONE (11:07)
== END 2019-04-16 11:20 | disposition home or self-care (01) ==
LOC: ERS 08:45
DX: N39.0 Urinary tract infection, site not specified (principal); I25.2 Old myocardial infarction; E11.9 Type 2 diabetes mellitus without complications; I10 Essential (primary) hypertension
CPT/HCPCS: 36415; 80053; 81003; 81015; 85025; 96372; 99284; J1885; Q0162

== ENCOUNTER 2019-04-24 01:39 | Emergency (ER) | payer OTHER | END 2019-04-24 02:11 | disposition home or self-care (01) | LOC: ERS 01:39 | DX: M25.511 Pain in right shoulder (principal); J45.909 Unspecified asthma, uncomplicated; I25.2 Old myocardial infarction; E11.9 Type 2 diabetes mellitus without complications; I10 Essential (primary) hypertension; M19.90 Unspecified osteoarthritis, unspecified site; F41.9 Anxiety disorder, unspecified; Z95.5 Presence of coronary angioplasty implant and graft; Z79.899 Other long term (current) drug therapy; Z79.84 Long term (current) use of oral hypoglycemic drugs ==

== ENCOUNTER 2019-04-26 19:16 | Inpatient (IN) | payer MEDICARE, MEDICAID ==
[~2019-04-26 19:16] MED LIST changes: -FLU VACC TS2017-18 (>65YR) 0.5 ML SYRINGE IM ONE; +Iopamidol-370 76% 500 ML 1 ML ONE
[2019-04-26] MEDS ORDERED: Naloxone HCl 0.4 mg/ml Vial ONE (19:49)
[2019-04-26] MEDS ORDERED: Ondansetron PF 4 MG/2 ML Vial ONE (19:49)
[2019-04-26 20:13] LABS: #Eosinphils 0.2 thou/uL (0.0-0.7); #Lymphocytes 1.8 thou/uL (1.20-3.40); #Monocytes 1.1 thou/uL (0.11-0.59); #Neutrophils 7.7 thou/uL (1.40-6.50); %Basophils 0.3 % (0.0-1.0); %Eosinophils 1.8 % (0.0-10.0); %Lymphocytes 16.6 % (21.0-51.0); %Monocytes 10.4 % (0.0-10.0); %Neutrophils 70.9 % (42.0-75.0); Hemoglobin 8.9 g/dL (12.0-16.0); Mean Corpuscular HGB CONC 33.6 g/dL (32.0-36.0); Mean Corpuscular Hemoglobin 31.9 pg (27.0-31.0); Mean Corpuscular Volume 94.8 fL (78.0-98.0); Mean Platelet Volume 7.3 fL (7.4-10.4); Platelet Count 362 thou/uL (130-400); RBC Distribution Width 12.3 % (11.5-14.5); Red Blood Cell (RBC) Count 2.81 mill/uL (4.20-5.40); White Blood Cell (WBC) Count 10.8 thou/uL (4.8-10.8)
[2019-04-26 20:24] LABS: Bilirubin Negative (Negative); Blood, Urine Negative (Negative); Clarity Clear (Clear); Glucose, Urine (Dipstick) Normal (Negative); Leukocyte Negative Leu/uL (Negative); Nitrite Negative (Negative); Protein, Urine (Dipstick) Negative (Neg-Trace)
[2019-04-26 20:37] LABS: ALT (SGPT) 13 U/L (8-55); AST (SGOT) 15 U/L (5-34); Albumin 3.7 g/dL (3.4-4.8); Alkaline Phosphatase 78 U/L (40-110); Anion Gap 14 mmol/L (10-20); BUN (Urea Nitrogen) 20 mg/dL (9.8-20.1); Bilirubin, Total 0.3 mg/dL (0.2-1.2); Calc. Creatinine Clearance 0 mL/min (70-130); Calcium 9.3 mg/dL (7.8-10.44); Carbon Dioxide 23 mmol/L (23-31); Chloride 93 mmol/L (98-107); Estimated GFR-MDRD 41; Globulin 2.9 g/dL (2.4-3.5); Glucose 151 mg/dL (80-115); Lipase 25 U/L (8-78); Potassium 3.7 mmol/L (3.5-5.1); Protein, Total 6.6 g/dL (6.0-8.3); Sodium 126 mmol/L (136-145)
--- NOTE | 2019-04-26 21:31 | CT ---
CT abdomen and pelvis with IV contrast HISTORY: Abdomen pain. Nausea vomiting. COMPARISON: 03/06/2018. FINDINGS: Old healed left lateral rib fractures. Small hiatal hernia. Solid organs are intact. Gallbl adder and uterus are surgically absent. No evidence of bowel obstruction. The cecum now lies within the anterior aspect of the left upper anjana drant, with the right colon draped across the anterior abdomen, anterior to the sigmoid colon. There is slight swirling of the mesenteric fat in the right lower quadrant due to this mobility of th e cecum. No fat stranding or wall thickening. Degenerative changes lumbar spine. Chronic appearing compression deformities of the L1 and L3 vertebr al bodies. IMPRESSION: No evidence of bowel obstruction or other acute abnormalities. The right colon and cecum are mobile, with the cecum positioned in the anterior aspect of the left up per quadrant on this exam. No evidence of complication. Small hiatal hernia. Atherosclerosis.
[2019-04-27] MEDS ORDERED: Ondansetron ODT 4 MG TAB SL PRN (01:01)
[2019-04-27] MEDS ORDERED: HYDROcodone/Acetaminophen 5/325 mg Tablet PO PRN ×2 (01:01)
[2019-04-27] MEDS ORDERED: Ondansetron PF 4 MG/2 ML Vial IVP PRN ×2 (01:01→02:41)
[2019-04-27] MEDS ORDERED: Acetaminophen 325 MG TAB PO PRN (01:01)
[2019-04-27] MEDS ORDERED: Sodium Chloride 0.9% 1,000 ML IV SCH ×2 (01:01→02:45)
[2019-04-27 01:59] VITALS: BMI 38.0
[2019-04-27] MEDS ORDERED: hydrALAZINE 20 MG/ML VIAL SLOW IVP PRN (02:41)
[2019-04-27] MEDS ORDERED: tiZANidine HCl 4 MG TAB PO PRN (02:41)
[2019-04-27] MEDS ORDERED: Dextrose 5% in Water 1,000 ML IV PRN (02:41)
[2019-04-27] MEDS ORDERED: Acetaminophen 500 MG TAB PO PRN (02:41)
[2019-04-27] MEDS ORDERED: Ondansetron ODT 4 MG TAB PO PRN (02:41)
[2019-04-27] MEDS ORDERED: Dextrose 50% Abboject 50 ML SYRINGE SLOW IVP PRN (02:41)
[2019-04-27] MEDS ORDERED: Zolpidem Tartrate 5 MG TAB PO PRN (02:41)
[2019-04-27] MEDS ORDERED: PROVENTIL INHALER 6.7 G (200 INHALATIONS) INH PRN (02:41)
[2019-04-27] MEDS ORDERED: HumaLOG 300 UNITS/3 ML VIAL SC PRN (02:41)
[2019-04-27] MEDS ORDERED: Ketorolac Tromethamine 30 MG/ML VIAL IVP PRN (02:42)
--- NOTE | 2019-04-27 03:36 | HP ---
PRIMARY CARE PROVIDER: Dr. Dmitri Bolivar. CHIEF COMPLAINT: Abdominal pain with nausea. HISTORY OF PRESENT ILLNESS: This is a 68-year-old female, who presents to [facility] Emergency Department complaining of 3-day history of abdominal cramping with associated nausea and emesis. The patient also admits to multiple episodes of diarrhea. The patient denied any travel history, exposures, or family members with similar symptoms. The patient denied any documented fever, but states she sometimes feel shaky. The patient did take a prescription muscle relaxer prior to evaluation in the emergency room and was noted lethargic. The patient states the abdominal pain is cramping in nature, initially rating at 7/10 and diffuse. The patient denied any recent change to her chronic medication regimen and states she has been compliant with her diabetic regimen to include metformin. The patient denied any hematemesis or melena. In the emergency room, the patient underwent general evaluation including CT of the abdomen and pelvis showing no evidence of an acute process. Metabolic screening showed hemoglobin of 8.9 with elevated creatinine of 1.54. The patient received intravenous normal saline x 2L in addition to Narcan, Zofran, and fentanyl. The patient was also noted hypotensive, responding to IV fluid resuscitation. PAST MEDICAL HISTORY: 1. Coronary artery disease, status post cardiac stent placement x3. 2. Diabetes mellitus, type 2. 3. History of myocardial infarction. 4. Asthma. 5. Carpal tunnel syndrome. 6. Osteoarthritis. 7. Chronic back pain. PAST SURGICAL HISTORY: 1. Status post bilateral total knee arthroplasty. 2. Status post coronary artery bypass grafting x2 vessels. 3. Status post spinal fusion. 4. Status post glaucoma surgery. CURRENT MEDICATIONS: 1. ProAir HFA 2 puffs inhaled q.4 hours p.r.n. 2. Enteric-coated aspirin 81 mg p.o. daily. 3. Atenolol 50 mg p.o. daily. 4. Brinzolamide one drop to each eye b.i.d. 5. Vitamin D3 1000 units p.o. daily. 6. Celexa 20 mg p.o. daily. 7. Enalapril/HCTZ 10/25 mg 1 tablet p.o. b.i.d. 8. Nexium 20 mg p.o. daily. 9. [place] 10/325 mg one tablet p.o. q.6 hours p.r.n. pain. 10. Latanoprost 0.05% one drop to each eye at bedtime. 11. Reglan 10 mg p.o. t.i.d. 12. Actos 45 mg p.o. daily. 13. Pravachol 40 mg p.o. at bedtime. 14. Prednisone 5 mg p.o. daily. 15. Tizanidine 4 mg p.o. t.i.d. p.r.n. 16. Ambien 10 mg p.o. at bedtime p.r.n. ALLERGIES: TO DOXYCYCLINE AND PENICILLIN. FAMILY HISTORY: Positive for hypertension and coronary artery disease. SOCIAL HISTORY: The patient resides in [place], [place]. No current alcohol, tobacco, or illicit drug use. Ambulates with a rolling walker. Retired. REVIEW OF SYSTEMS: CONSTITUTIONAL: Negative for weight loss or gain, ability to conduct usual activities. SKIN: Negative for rash, itching. EYES: Negative for double vision, pain. ENT/MOUTH: Negative for nose bleeding, neck stiffness, pain, tenderness. CARDIOVASCULAR: Negative for palpitations, dyspnea on exertion, orthopnea. RESPIRATORY: Negative for shortness of breath, wheezing, cough, hemoptysis, fever or night sweats. GASTROINTESTINAL: Negative for poor appetite, abdominal pain, heartburn, nausea, vomiting, constipation, or diarrhea. GENITOURINARY: Negative for urgency, frequency, dysuria, nocturia. MUSCULOSKELETAL: Negative for pain, swelling. NEUROLOGIC/PSYCHIATRIC: Negative for anxiety, depression. ALLERGY/IMMUNOLOGIC: Negative for skin rash, bleeding tendency. Otherwise negative except as stated per HPI. PHYSICAL EXAMINATION: VITAL SIGNS: On admission, blood pressure 100/69, pulse 85, respiratory rate 20, temperature 99.5 degrees Fahrenheit, O2 saturation 99% on room air. GENERAL APPEARANCE: This is a 68-year-old female, alert and oriented x3, pleasant, responsive, in no acute distress. HEENT: Pupils are equal, round, reactive to light and accommodation. Extraocular muscles are intact. No scleral icterus. No conjunctival injection. Nares patent. OP is clear. Edentulous. NECK: Supple. No cervical adenopathy. No thyromegaly. No carotid bruits. No JVD appreciated. Cervical spine with full active and passive range of motion. No meningeal signs noted. CHEST: Lungs are clear to auscultation bilaterally. CARDIOVASCULAR EXAM: S1 and S2 with 1/6 systolic ejection murmur in the right upper sternal border. ABDOMEN: Obese, soft, nontender, and nondistended. Bowel sounds are positive in all 4 quadrants. There is no hepatosplenomegaly. No abdominal bruits. No rebound or guarding appreciated. EXTREMITIES: Warm and dry with fair turgor. No clubbing, cyanosis, or asymmetric edema appreciated. Pulses palpable distally at the dorsalis pedis, posterior tibial, and popliteal arteries bilaterally. Capillary refill less than 2 seconds. NEUROLOGIC: Cranial nerves 2 through 12 are grossly intact. No focal or lateralizing signs appreciated. Not observed ambulatory during this exam. PERTINENT LABORATORY AND X-RAY FINDINGS: Sodium 126, potassium 3.7, chloride 93, CO2 of 23, BUN 20, creatinine 1.54, estimated GFR of 41, glucose 151, calcium 9.3. LFTs within normal limits. Lipase 25. CBC showed a white blood cell count of 10.8, hemoglobin 8.9, hematocrit 27, MCV 95, platelet count 362 with 71% neutrophils. Stool Hemoccult negative x1 04/26/2019. CT of the abdomen and pelvis dated 04/26/2019, showed no acute intraabdominal process. EKG dated 04/26/2019, by my interpretation shows sinus mechanism with heart rates in the 70s. Normal R-wave progression noted in precordial leads. Normal axis. No acute ST-T wave changes appreciated. ASSESSMENT AND PLAN: 1. Hyponatremia. Suspect iatrogenic in conjunction with poor oral intake. We will continue intravenous normal saline at 75 mL/h. Repeat sodium level in the a.m. 2. Acute kidney injury on chronic kidney disease, stage 3. Continue IV fluids as outlined previously. Avoid nephrotoxic agents and limit contrast exposure. Repeat creatinine in the a.m. 3. Hypotension. Suspect secondary to volume depletion in conjunction with iatrogenic influence. Improved with IV fluid hydration. Hold home blood pressure regimen and monitor serial blood pressures. 4. Abdominal pain. Nonspecific. Suspect multifactorial in conjunction with possible gastroenteritis in the context of chronic metformin use. Continue to monitor clinically with serial abdominal exams. CT of the abdomen and pelvis unremarkable. 5. Acute normocytic anemia. Exact etiology unclear. Initial guaiac negative. Serial H and H monitoring. Consider GI consultation. 6. Diabetes mellitus type 2. Insulin sliding scale for reflexive coverage. ADA diet. Serial Accu-Cheks before meals and at bedtime. Hold metformin. 7. Prophylaxis. SCDs while in bed. Pepcid 20 mg p.o. b.i.d. CODE STATUS: Full. Surrogate medical decision maker is patient's daughter. Job ID: [id number]
[2019-04-27] MEDS: HYDROcodone/Acetaminophen 5/325 mg Tablet PO PRN ×3 (03:53→20:19)
[2019-04-27 06:52] LABS: Anion Gap 14 mmol/L (10-20); BUN (Urea Nitrogen) 15 mg/dL (9.8-20.1); Calc. Creatinine Clearance 95 mL/min (70-130); Calcium 9.2 mg/dL (7.8-10.44); Carbon Dioxide 18 mmol/L (23-31); Chloride 102 mmol/L (98-107); Estimated GFR-MDRD 67; Glucose 122 mg/dL (80-115); Potassium 4.1 mmol/L (3.5-5.1); Sodium 130 mmol/L (136-145)
[2019-04-27] MEDS ORDERED: Lactated Ringer's 1,000 ML IV SCH ×2 (07:45→13:02)
[2019-04-27] MEDS ORDERED: predniSONE 5 MG TAB PO SCH (08:00)
[2019-04-27] MEDS: Aspirin 81 mg Enteric Coated Tablet PO SCH (08:25)
[2019-04-27] MEDS: Citalopram 20 MG TAB PO SCH (08:25)
[2019-04-27] MEDS: Famotidine 20 MG TAB PO SCH (08:25)
[2019-04-27] MEDS: Metoclopramide HCl 10 MG TAB PO SCH ×3 (08:25→20:18)
[2019-04-27] MEDS: predniSONE 5 MG TAB PO SCH (08:26)
[2019-04-27] MEDS: Atenolol 25 MG TAB PO SCH (08:27)
[2019-04-27 08:55] LABS: Hemoglobin 9.2 g/dL (12.0-16.0); Lymphocytes 25 % (21-51); MDiff Complete? YES; Mean Corpuscular HGB CONC 32.9 g/dL (32.0-36.0); Mean Corpuscular Hemoglobin 32.2 pg (27.0-31.0); Mean Platelet Volume 7.2 fL (7.4-10.4); Monocytes 4 % (0-10); Neutrophil 70 % (42-75); Platelet Count 392 thou/uL (130-400); Platelet Morphology Comment Appears Adequate; RBC Distribution Width 12.4 % (11.5-14.5); RBC Morphology Normal; Reactive Lymphocytes 1 % (0-10); Red Blood Cell (RBC) Count 2.84 mill/uL (4.20-5.40); Reflex for Review?? NO; White Blood Cell (WBC) Count 12.8 thou/uL (4.8-10.8)
[2019-04-27] MEDS ORDERED: Prevnar 13-Val Conj/PF 0.5 ML SYRINGE IM ONE (09:00)
[2019-04-27] MEDS ORDERED: Atenolol 50 MG TAB PO SCH ×2 (09:00)
[2019-04-27] MEDS: Brinzolamide 1% Ophth SUSP 10 ml Bottle EA EYE SCH ×2 (10:10→20:19)
[2019-04-27] MEDS: Clobetasol 0.05% Cream 15 gm Tube TOP SCH ×2 (10:13→20:20)
--- NOTE | 2019-04-27 13:05 | PDOC.HOSPP ---
- Subjective Encounter Date: 04/27/19 Encounter Time: 10:02 Subjective: 68 y/o female with DM, CAD, chronic abck pain and others admitted with acute onset of abdominal discomfort associated with nausea, vomiting and frequent loose stools. Denied hematemesis, melena, hematochezia. symptoms have subsided and she is tolerating diet. No fever. - Objective Vital Signs & Weight: Vital Signs (12 hours) Temp Pulse Resp BP BP Pulse Ox 04/27/19 11:00 98.9 F 88 20 124/69 97 04/27/19 08:27 84 133/76 04/27/19 08:00 94 L 04/27/19 07:41 99.7 F H 84 20 133/76 98 04/27/19 04:00 99.6 F 86 20 107/62 95 Weight Weight 243 lb I&O: 04/26/19 04/27/19 04/28/19 06:59 06:59 06:59 Intake Total 480 Balance 480 Result Diagrams: 04/27/19 06:20 04/27/19 06:21 Additional Labs: Accuchecks 04/27/19 04/27/19 04/26/19 11:59 05:38 19:47 POC Glucose 199 H 127 H 171 H Hospitalist ROS - Medication Medications: Active Medications Generic Name Dose Route Start Last Admin Trade Name Freq PRN Reason Stop Dose Admin Hydrocodone Bitart/Acetaminophen 1 tab 04/27/19 02:41 04/27/19 11:26 [place] 5/325 PO 1 tab Q6H PRN Administration Moderate Pain (4-6) Hydrocodone Bitart/Acetaminophen 2 tab 04/27/19 02:41 04/27/19 03:53 [place] 5/325 PO 2 tab Q6H PRN Administration Severe Pain (7-10) Aspirin 81 mg 04/27/19 09:00 04/27/19 08:25 Ecotrin PO 81 mg DAILY KATH Administration Atenolol 25 mg 04/27/19 09:00 04/27/19 08:27 Tenormin PO 25 mg DAILY KATH Administration Brinzolamide 1 drop 04/27/19 09:00 04/27/19 10:10 Azopt 1% Ophth Susp EA EYE 1 drop BID KATH Administration Cholecalciferol 1,000 units 04/27/19 09:00 04/27/19 10:14 Vitamin D3 PO 1,000 units DAILY KATH Administration Citalopram Hydrobromide 20 mg 04/27/19 09:00 04/27/19 08:25 Celexa PO 20 mg DAILY KATH Administration Clobetasol Propionate 0 gm 04/27/19 09:00 04/27/19 10:13 Temovate 0.05% Cream TOP Not Given BID KATH Famotidine 20 mg 04/27/19 09:00 04/27/19 08:25 Pepcid PO 20 mg DAILY KATH Administration Metoclopramide HCl 10 mg 04/27/19 09:00 04/27/19 08:25 Reglan PO 10 mg TID KATH Administration Prednisone 10 mg 04/27/19 08:00 04/27/19 08:26 Prednisone PO 10 mg QAM-WM KATH Administration Triamcinolone Acetonide 0 gm 04/27/19 09:00 04/27/19 10:12 Kenalog 0.1% Ointment TOP 1 applic BID KATH Administration - Exam General Appearance: awake alert General - other findings: obese Eye: anicteric sclera ENT: normocephalic atraumatic ENT - other findings: edentulous Neck: symmetric, no JVD Heart: RRR Respiratory: no wheezes, no rales, no ronchi, normal chest expansion Gastrointestinal: soft, non-distended, normal bowel sounds Gastrointestinal - other findings: diffuse abdomin al tenderness noted Extremities - other findings: trace bilateral leg edema noted Neurological: cranial nerve grossly intact, no focal deficits Psychiatric: normal affect, A&O x 3 Hosp A/P (1) Hyponatremia Code(s): E87.1 - HYPO-OSMOLALITY AND HYPONATREMIA Status: Acute (2) Hypomagnesemia Code(s): E83.42 - HYPOMAGNESEMIA Status: Acute (3) Hyperchloremic acidosis Code(s): E87.2 - ACIDOSIS Status: Acute (4) TERA (acute kidney injury) Code(s): N17.9 - ACUTE KIDNEY FAILURE, UNSPECIFIED Status: Acute (5) Acute gastroenteritis Code(s): K52.9 - NONINFECTIVE GASTROENTERITIS AND COLITIS, UNSPECIFIED Status : Acute (6) Hypotension Status: Acute (7) Asthma Code(s): J45.909 - UNSPECIFIED ASTHMA, UNCOMPLICATED Status: Acute (8) Acute on chronic anemia Code(s): D64.9 - ANEMIA, UNSPECIFIED Status: Acute (9) SIADH (syndrome of inappropriate ADH production) Status: Acute (10) CAD (coronary artery disease) Code(s): I25.10 - ATHSCL HEART DISEASE OF [place] CORONARY ARTERY W/O ANG PCTRS Status: Chronic (11) Diabetes mellitus, type II, insulin dependent Code(s): E11.9 - TYPE 2 DIABETES MELLITUS WITHOUT COMPLICATIONS; Z79.4 - COLORED LIQUID PLASTIC APPLIER (CURRENT) USE OF INSULIN Status: Chronic - Plan Replete serum potassium and magnesium. Continue crysrtalloid forvolume depletion with hyponatremia Substitute NS with LRMonitor renal function, electrolytes and Hb. PT efval and treat. hold antihyperttensives. Will DC thiazide on discharge due to hyponatremia
[2019-04-27] MEDS: HumaLOG 300 UNITS/3 ML VIAL SC PRN ×2 (13:10→17:46)
[2019-04-27] MEDS ORDERED: Magnesium 2 GM/50 ML 2 GM in Premix Bag 1 BAG IVPB SCH (13:15)
--- NOTE | 2019-04-27 19:06 | CON ---
DATE OF CONSULTATION: 04/27/2019 CONSULTING PHYSICIAN: Dr. Dickey. REASON FOR CONSULTATION: Hyponatremia and TERA. REASON FOR ADMISSION: Abdominal pain and nausea. HISTORY OF PRESENT ILLNESS: This is a 68-year-old female with history of coronary artery disease, type 2 diabetes, asthma, and carpal tunnel syndrome, came to the hospital with abdominal pain and nausea, and she was found to have elevated creatinine and also low sodium. The patient does follow up with Dr. Askew, and she called office to have us follow her in the hospital. No fever or chills. No abdominal pain reported today. No nausea. PAST MEDICAL HISTORY: Positive for coronary artery disease, type 2 diabetes, [place], asthma, carpal tunnel syndrome, osteoarthritis, and chronic back pain. PAST SURGICAL HISTORY: Bilateral total knee arthroplasty, coronary artery bypass graft, spinal fusion, and glaucoma surgery. HOME MEDICATIONS: 1. ProAir HFA. 2. Aspirin. 3. Atenolol. 4. Brinzolamide. 5. Vitamin D3. 6. Celexa. 7. Enalapril/hydrochlorothiazide. 8. Nexium. 9. [place]. 10. Latanoprost. 11. Reglan. 12. Actos. 13. Pravachol. 14. Prednisone. 15. Tizanidine. 16. Ambien. ALLERGIES: 1. DOXYCYCLINE. 2. PENICILLIN. FAMILY HISTORY: Positive for hypertension. SOCIAL HISTORY: No smoking, alcohol, or drugs. REVIEW OF SYSTEMS: CONSTITUTIONAL: Negative for weight loss or gain, ability to conduct usual activities. SKIN: Negative for rash, itching. EYES: Negative for double vision, pain. ENT/MOUTH: Negative for nose bleeding, neck stiffness, pain, tenderness. CARDIOVASCULAR: Negative for palpitations, dyspnea on exertion, orthopnea. RESPIRATORY: Negative for shortness of breath, wheezing, cough, hemoptysis, fever or night sweats. GASTROINTESTINAL: Negative for poor appetite, abdominal pain, heartburn, nausea, vomiting, constipation, or diarrhea. GENITOURINARY: Negative for urgency, frequency, dysuria, nocturia. MUSCULOSKELETAL: Negative for pain, swelling. NEUROLOGIC/PSYCHIATRIC: Negative for anxiety, depression. ALLERGY/IMMUNOLOGIC: Negative for skin rash, bleeding tendency. PHYSICAL EXAMINATION: GENERAL: This is an obese female, in no apparent distress. VITAL SIGNS: Temperature 98.5, pulse 84, respiratory rate 20, blood pressure 111/72. HEENT: Atraumatic and normocephalic. Oral mucosa is moist. NECK: Supple. CARDIOVASCULAR: S1 and S2 heard. Rate and rhythm regular. RESPIRATORY: Clear. GASTROINTESTINAL: Abdomen is soft. MUSCULOSKELETAL: No tenderness. No edema. DERMATOLOGIC: No skin rash. NEUROLOGIC: Alert and awake. PSYCHIATRIC: Normal mood and affect. LABORATORY DATA: Hemoglobin is 9.2. Potassium 4.1, sodium is 130 from 126, creatinine is 1 from 1.5. ASSESSMENT AND PLAN: 1. Acute kidney injury. Creatinine is much better with hydration. 2. Acidosis. 3. Hyponatremia, better. 4. Edema, controlled. 5. Chronic anemia. 6. History of hypertension, stable. Labs are better. Continue current management. We will follow. Thank you for the consult. Job ID: [id number]
[2019-04-27] MEDS ORDERED: Latanoprost 0.005% Ophth Soln 2.5 ml Bottle EA EYE SCH (21:00)
[2019-04-28 06:33] LABS: Hemoglobin 9.4 g/dL (12.0-16.0); Mean Corpuscular HGB CONC 33.3 g/dL (32.0-36.0); Mean Corpuscular Hemoglobin 31.9 pg (27.0-31.0); Mean Corpuscular Volume 95.6 fL (78.0-98.0); Platelet Count 438 thou/uL (130-400); RBC Distribution Width 12.3 % (11.5-14.5); Red Blood Cell (RBC) Count 2.95 mill/uL (4.20-5.40); White Blood Cell (WBC) Count 12.8 thou/uL (4.8-10.8)
[2019-04-28] MEDS: HYDROcodone/Acetaminophen 5/325 mg Tablet PO PRN (06:34)
[2019-04-28 07:12] LABS: Anion Gap 11 mmol/L (10-20); BUN (Urea Nitrogen) 8 mg/dL (9.8-20.1); Calc. Creatinine Clearance 120 mL/min (70-130); Calcium 10.9 mg/dL (7.8-10.44); Carbon Dioxide 27 mmol/L (23-31); Chloride 99 mmol/L (98-107); Estimated GFR-MDRD 88; Glucose 127 mg/dL (80-115); Iron 31 ug/dL (50-170); Iron Binding Capacity, Total 179 mcg/dL (265-497); Potassium 3.8 mmol/L (3.5-5.1); Sodium 133 mmol/L (136-145)
[2019-04-28 07:51] VITALS: BP 138/67; TEMP 98.8
[2019-04-28] MEDS: predniSONE 5 MG TAB PO SCH (08:48)
[2019-04-28] MEDS: Atenolol 25 MG TAB PO SCH (08:49)
[2019-04-28] MEDS: Aspirin 81 mg Enteric Coated Tablet PO SCH (08:49)
[2019-04-28] MEDS: Brinzolamide 1% Ophth SUSP 10 ml Bottle EA EYE SCH (08:49)
[2019-04-28] MEDS: Citalopram 20 MG TAB PO SCH (08:50)
[2019-04-28] MEDS: Clobetasol 0.05% Cream 15 gm Tube TOP SCH (08:51)
[2019-04-28] MEDS: Metoclopramide HCl 10 MG TAB PO SCH (08:51)
[2019-04-28] MEDS: Famotidine 20 MG TAB PO SCH (08:51)
--- NOTE | 2019-04-28 10:36 | PRG ---
DATE OF SERVICE: 04/28/2019 SUBJECTIVE: Patient was seen and examined at bedside and overnight events noted. Patient denies any shortness of breath or chest pain or palpitation. No history of nausea or vomiting or diarrhea or fever or chills or cramps. OBJECTIVE: GENERAL: This is an obese female, in no acute distress. VITAL SIGNS: Temperature 98.8. Heart rate 90. Respiratory rate 18. Blood pressure 138/67. HEENT: Atraumatic, normocephalic. Oral mucosa is moist NECK: Supple. CARDIOVASCULAR: S1, S2 heard. Rate and rhythm regular. RESPIRATORY: Clear to auscultation. GASTROINTESTINAL: Abdomen is soft. MUSCULOSKELETAL: No tenderness. No edema. DERMATOLOGIC: No skin rash. NEUROLOGIC: Alert and awake and oriented X3. No focal neurologic deficits. Moving all the extremities. PSYCHIATRIC: Mood and affect normal. LABORATORY DATA: Potassium is 3.8, BUN is 8, creatinine is 0.7, and sodium is 133. ASSESSMENT AND PLAN: 1. Acute kidney injury, much better. 2. Hyponatremia, better. 3. Acidosis. 4. Edema, controlled. 5. Chronic anemia. 6. History of hypertension. Labs are stable. The patient is going home. Advised to follow up with the clinic in 1 to 2 weeks. Job ID: [id number]
--- NOTE | 2019-04-29 02:23 | PQF ---
WILD BROWN REJEESH MD [id number] CLINICAL DOCUMENTATION CLARIFICATION FORM: POST DISCHARGE Addendum to original discharge summary date: ____ Late entry note date: __ DATE: 04/29/19 ATTN: Adithya Olivas Please exercise your independent, professional judgment in responding to the clarification form. Clinical indicators are provided on the bottom of this form for your review Can you please further specify if SAIDH is ruled in or ruled out? SAIDH [ ] Ruled in diagnosis [ ] Continue to treat [ ] Resolved [ ] Ruled out diagnosis [ ] Cannot rule out diagnosis [ ] Other diagnosis please specify [ ] Unable to determine In addition, please specify: Present on Admission (POA): [ ] Yes [ ] No [ ] Unable to determine For continuity of documentation, please document condition throughout progress notes and discharge summary. Thank You. CLINICAL INDICATORS - SIGNS / SYMPTOMS / LABS PN04/[address] Langley- hyponatremia better H and P pg.1 04/27 pg.1- 3 day history of abdominal cramping with associated nausea and emesis H and P pg.1- the patient was also noted hypotensive Laboratory- Sodium 126L, 130,L, 133L Hospitalist PN 04/27 Dr. Curtis- SIADH (syndrome of inappropriate ADH production) RISK FACTORS Acute kidney injury- H and P pg.3 CKD 3- H and P pg.3 Hypotension- Rich d P pg.4 Anemia- H and P pg.4 Acute gastroenteritis- Hospitalist PN pg.5 TREATMENTS IV fluid resuscitation- H and P pg.1 Sodium monitoring- Chemistry Continue crystalloid for volume depletion with hyponatremia-Hospitalist PN pg.[address] Langley (This form is maintained as a part of the permanent medical record) 2014 [employer]. All Rights Reserved [email or web address] [not provided] MTDD
--- NOTE | 2019-05-01 07:56 | DIS ---
DATE OF ADMISSION: 04/27/2019 DATE OF DISCHARGE: 04/28/2019 PRIMARY CARE PHYSICIAN: Dr. Ravi Bolivar. DISCHARGE DIAGNOSES: 1. Acute kidney injury. 2. Hyponatremia. 3. Acute gastroenteritis. 4. Hypomagnesemia. 5. Hyperchloremic acidosis. 6. Hypotension. 7. Asthma without acute exacerbation. 8. Acute on chronic anemia. 9. Coronary artery disease. 10. Type 2 diabetes mellitus. HOSPITAL COURSE: A 68-year-old female with known history of diabetes, hypertension, chronic back pain, and others, admitted with acute onset of abdominal pain associated with nausea, vomiting, and frequent loose stools. There was no associated hematemesis, melena, or hematochezia. Evaluation with CT scan of the abdomen with IV contrast showed no evidence of bowel obstruction or acute abdominal abnormality. However, the right colon and cecum are noted to be mobile with the cecum position in the anterior aspect of the left upper quadrant with no evidence of acute complication. The patient also was found to have elevated creatinine and hyponatremia. Impression of volume depletion with appropriate ADH secretion given the patient also was hypotensive was made and patient was treated with IV fluid therapy, antibiotics, antiemetics with resolution of symptoms. Diet was restarted and renal failure resolved and sodium was trending up towards baseline. The patient remained stable and was tolerating regular diet and was subsequently discharged home. Also found to have hypomagnesemia and hypokalemia, which were addressed appropriately. Given that the patient has hyponatremia, thiazide diuretic was discontinued at discharge. DISCHARGE PHYSICAL EXAMINATION: VITAL SIGNS: Temperature 98.8, pulse 90, respiratory rate 18, SpO2 of 97 on room air, blood pressure is 138/67. GENERAL: Elderly female, in no obvious distress. Afebrile. Anicteric. Acyanotic. HEENT: Normocephalic, atraumatic. The patient is edentulous. CARDIOVASCULAR: Regular rhythm and rate with normal heart sounds 1 and 2. RESPIRATORY: Good air entry bilaterally with no obvious crackle or rhonchi or use of accessory muscles. GI: Abdomen is obese, soft, nontender, nondistended with normal bowel sounds. EXTREMITIES: Grossly normal looking atraumatic with trace leg edema. NEUROLOGIC: Conscious, alert, oriented x3 with appropriate mental status. The patient moves all extremities. DISCHARGE DISPOSITION: Home. DISCHARGE CONDITION: Improved. DISCHARGE FOLLOWUP: With PCP within 7 days of discharge. DISCHARGE MEDICATIONS: 1. Albuterol 2 puffs inhalation q.4 p.r.n. 2. Acetaminophen and hydrocodone 325/10 one tablet q.6 p.r.n. 3. Zofran ODT q.8 p.r.n. as needed. 4. Aspirin 81 mg p.o. daily. 5. Atenolol 50 mg p.o. daily. 6. Brinzolamide eye drop one drop to each eye b.i.d. 7. Cholecalciferol (vitamin D) 1000 units p.o. daily. 8. Citalopram 20 mg p.o. daily. 9. Nexium 20 mg p.o. daily. 10. Latanoprost one drop to each eye at bedtime. 11. Reglan 10 mg p.o. t.i.d. 12. Pioglitazone 45 mg p.o. daily. 13. Pravastatin 40 mg p.o. daily at bedtime. 14. Prednisone 5 mg p.o. daily. 15. Tizanidine 4 mg p.o. t.i.d. p.r.n. 16. Zolpidem 10 mg p.o. daily at bedtime as needed for insomnia. 17. Furosemide 20 mg p.o. daily. This discharge took more than 33 minutes. Job ID: [id number]
== END 2019-04-28 10:33 | disposition home or self-care (01) | DRG 644 ==
LOC: ERS 19:16 → T4-B 23:03 → UNDOADMIN 04-27 01:03 → T4-B 04-27 01:03 → UNDODISIN 04-28 10:33
PROVIDERS: ADMIT Family Medicine; ATTEND Family Medicine
DX: E22.2 Syndrome of inappropriate secretion of antidiuretic hormone (principal); N17.9 Acute kidney failure, unspecified; E87.2 Acidosis; N18.3 Chronic kidney disease, stage 3 (moderate); E11.22 Type 2 diabetes mellitus with diabetic chronic kidney disease; I12.9 Hypertensive chronic kidney disease with stage 1 through stage 4 chronic kidney disease, or unspecified chronic kidney disease; D63.1 Anemia in chronic kidney disease; E86.9 Volume depletion, unspecified; J45.909 Unspecified asthma, uncomplicated; G56.00 Carpal tunnel syndrome, unspecified upper limb; M19.90 Unspecified osteoarthritis, unspecified site; M54.9 Dorsalgia, unspecified; Z96.653 Presence of artificial knee joint, bilateral; F41.9 Anxiety disorder, unspecified; E83.42 Hypomagnesemia; I95.9 Hypotension, unspecified; I25.10 Atherosclerotic heart disease of native coronary artery without angina pectoris; Z95.5 Presence of coronary angioplasty implant and graft; I25.2 Old myocardial infarction; Z98.1 Arthrodesis status; Z79.51 Long term (current) use of inhaled steroids; Z79.52 Long term (current) use of systemic steroids; Z79.899 Other long term (current) drug therapy; Z88.0 Allergy status to penicillin; Z88.1 Allergy status to other antibiotic agents; Z79.84 Long term (current) use of oral hypoglycemic drugs; E66.9 Obesity, unspecified; Z68.38 Body mass index [BMI] 38.0-38.9, adult; K52.9 Noninfective gastroenteritis and colitis, unspecified
CPT/HCPCS: 36415; 36416; 51701; 74177; 80048; 80053; 81003; 82274; 82728; 83540; 83550; 83690; 83735; 85007; 85025; 85027; 93005; 96361; 96374; 96375; A4353; J2310; J2405; J3475; J7512; Q0162; Q9967

== ENCOUNTER 2019-05-07 09:59 | Emergency (ER) | payer MEDICARE, OTHER | END 2019-05-07 10:37 | disposition home or self-care (01) | LOC: ERS 09:59 | DX: G89.29 Other chronic pain (principal); M79.601 Pain in right arm; J45.909 Unspecified asthma, uncomplicated; I25.2 Old myocardial infarction; E11.9 Type 2 diabetes mellitus without complications; I10 Essential (primary) hypertension; F41.9 Anxiety disorder, unspecified; Z79.899 Other long term (current) drug therapy; Z79.84 Long term (current) use of oral hypoglycemic drugs | CPT/HCPCS: 99281 ==

== ENCOUNTER 2019-06-03 11:36 | Emergency (ER) | payer MEDICARE, OTHER ==
[2019-06-03] MEDS ORDERED: Ketorolac Tromethamine 60 MG/2 ML VIAL ONE (12:19)
== END 2019-06-03 12:39 | disposition home or self-care (01) ==
LOC: ERS 11:36
DX: M79.604 Pain in right leg (principal); G89.29 Other chronic pain; E11.9 Type 2 diabetes mellitus without complications; I10 Essential (primary) hypertension; M19.90 Unspecified osteoarthritis, unspecified site; J45.909 Unspecified asthma, uncomplicated; I25.2 Old myocardial infarction; F41.9 Anxiety disorder, unspecified; Z79.82 Long term (current) use of aspirin; Z79.899 Other long term (current) drug therapy; Z79.84 Long term (current) use of oral hypoglycemic drugs; W19.XXXA Unspecified fall, initial encounter
CPT/HCPCS: 96372; 99283; J1885

== ENCOUNTER 2019-07-08 08:46 | Emergency (ER) | payer MEDICARE, OTHER ==
[2019-07-08] MEDS ORDERED: Ketorolac Tromethamine 30 MG/ML VIAL ONE (09:33)
[2019-07-08 09:57] LABS: #Basophils 0.1 thou/uL (0.0-0.2); #Eosinphils 0.3 thou/uL (0.0-0.7); #Monocytes 1.2 thou/uL (0.11-0.59); #Neutrophils 7.1 thou/uL (1.40-6.50); %Eosinophils 2.3 % (0.0-10.0); %Lymphocytes 25.8 % (21.0-51.0); %Monocytes 10.1 % (0.0-10.0); %Neutrophils 60.8 % (42.0-75.0); Hemoglobin 10.7 g/dL (12.0-16.0); Mean Corpuscular HGB CONC 32.6 g/dL (32.0-36.0); Mean Corpuscular Hemoglobin 31.6 pg (27.0-31.0); Mean Corpuscular Volume 97.1 fL (78.0-98.0); Mean Platelet Volume 7.8 fL (7.4-10.4); Platelet Count 292 thou/uL (130-400); RBC Distribution Width 13.7 % (11.5-14.5); Red Blood Cell (RBC) Count 3.37 mill/uL (4.20-5.40); White Blood Cell (WBC) Count 11.6 thou/uL (4.8-10.8)
--- NOTE | 2019-07-08 10:09 | RAD ---
EXAM: Single view of the chest HISTORY: Diabetes COMPARISON: 04/10/2019 FINDINGS: Single view of the chest shows a normal sized cardiomediastinal silhouette. There is no dana dence of consolidation, mass, or pleural effusion. The bones are unremarkable. IMPRESSION: No evidence of acute cardiopulmonary disease
[2019-07-08 10:16] LABS: ALT (SGPT) 20 U/L (8-55); AST (SGOT) 20 U/L (5-34); Albumin 3.9 g/dL (3.4-4.8); Alkaline Phosphatase 85 U/L (40-110); Anion Gap 13 mmol/L (10-20); BUN (Urea Nitrogen) 15 mg/dL (9.8-20.1); Bilirubin, Total 0.3 mg/dL (0.2-1.2); Calc. Creatinine Clearance 0 mL/min (70-130); Calcium 9.9 mg/dL (7.8-10.44); Carbon Dioxide 25 mmol/L (23-31); Chloride 103 mmol/L (98-107); Estimated GFR-MDRD 81; Globulin 2.9 g/dL (2.4-3.5); Glucose 114 mg/dL (80-115); Protein, Total 6.8 g/dL (6.0-8.3); Sodium 137 mmol/L (136-145)
== END 2019-07-08 11:16 | disposition home or self-care (01) ==
LOC: ERS 08:46
DX: R60.0 Localized edema (principal); J45.909 Unspecified asthma, uncomplicated; I25.2 Old myocardial infarction; E11.9 Type 2 diabetes mellitus without complications; I10 Essential (primary) hypertension; M19.90 Unspecified osteoarthritis, unspecified site; F41.9 Anxiety disorder, unspecified; Z79.82 Long term (current) use of aspirin; Z79.84 Long term (current) use of oral hypoglycemic drugs
CPT/HCPCS: 71045; 80053; 83880; 84484; 85025; 93005; 94760; 96374; J1885

== ENCOUNTER 2019-07-22 14:51 | Emergency (ER) | payer MEDICARE, OTHER | END 2019-07-22 17:25 | disposition home or self-care (01) | LOC: ERS 14:51 | DX: R51 Headache (principal); J45.909 Unspecified asthma, uncomplicated; I25.2 Old myocardial infarction; E11.9 Type 2 diabetes mellitus without complications; I10 Essential (primary) hypertension; M19.90 Unspecified osteoarthritis, unspecified site; F41.9 Anxiety disorder, unspecified | CPT/HCPCS: 99281 ==

== ENCOUNTER 2019-07-25 11:56 | Emergency (ER) | payer MEDICARE, OTHER ==
[2019-07-25] MEDS ORDERED: Ibuprofen 200 MG TAB ONE (12:33)
--- NOTE | 2019-07-25 12:36 | RAD ---
EXAM: 2 views of the right tibia/fibula HISTORY: Leg pain COMPARISON: 08/05/2018 FINDINGS: There is no evidence of acute fracture or dislocation. Moderate diffuse soft tissue swellin g is seen. No degenerative changes are seen in the knee or ankle. The patient has a right knee prosthesis. Vascular calcic lesions are seen. IMPRESSION: No evidence of acute osseous abnormality.
== END 2019-07-25 13:06 | disposition home or self-care (01) ==
LOC: ERS 11:56
DX: S80.11XA Contusion of right lower leg, initial encounter (principal); J45.909 Unspecified asthma, uncomplicated; E11.9 Type 2 diabetes mellitus without complications; I10 Essential (primary) hypertension; M19.90 Unspecified osteoarthritis, unspecified site; G56.00 Carpal tunnel syndrome, unspecified upper limb; F41.9 Anxiety disorder, unspecified; V29.9XXA Motorcycle rider (driver) (passenger) injured in unspecified traffic accident, initial encounter; I25.2 Old myocardial infarction

== ENCOUNTER 2019-07-31 15:30 | Emergency (ER) | payer MEDICARE, OTHER ==
--- NOTE | 2019-07-31 17:07 | ULT ---
EXAM: Right lower extremity venous Doppler US HISTORY: Right lower extremity edema and pain FINDINGS: Grayscale, color-flow, Doppler evaluation, spectral analysis of the right lower extremity venous stru ctures is performed with 2-D imaging. The right common femoral, superficial femoral, popliteal, posterior tibial, proximal greater saphenous and profunda femoral veins are imaged. There is normal luminal compressibility, flow, and augmentation the visualized deep venous structures of the right lower extremity. IMPRESSION: No evidence of a deep vein thrombosis in the right lower extremity.
== END 2019-07-31 17:10 | disposition home or self-care (01) ==
LOC: ERS 15:30
DX: S80.11XA Contusion of right lower leg, initial encounter (principal); J45.909 Unspecified asthma, uncomplicated; I10 Essential (primary) hypertension; E11.9 Type 2 diabetes mellitus without complications; M19.90 Unspecified osteoarthritis, unspecified site; I25.2 Old myocardial infarction; F41.9 Anxiety disorder, unspecified; V03.99XA Pedestrian with other conveyance injured in collision with car, pick-up truck or van, unspecified whether traffic or nontraffic accident, initial encounter

== ENCOUNTER 2019-08-20 12:21 | Emergency (ER) | payer MEDICARE, OTHER | END 2019-08-20 12:44 | disposition home or self-care (01) | LOC: ERS 12:21 | DX: J30.9 Allergic rhinitis, unspecified (principal); I25.2 Old myocardial infarction; E11.9 Type 2 diabetes mellitus without complications; I10 Essential (primary) hypertension; M19.90 Unspecified osteoarthritis, unspecified site; F41.9 Anxiety disorder, unspecified | CPT/HCPCS: 99281 ==

== ENCOUNTER 2019-08-28 02:53 | Emergency (ER) | payer MEDICARE, OTHER ==
[2019-08-28] MEDS ORDERED: Ondansetron ODT 8 MG TAB ONE (03:30)
== END 2019-08-28 04:30 | disposition home or self-care (01) ==
LOC: ERS 02:53
DX: F41.9 Anxiety disorder, unspecified (principal); R11.2 Nausea with vomiting, unspecified; I25.2 Old myocardial infarction; E11.9 Type 2 diabetes mellitus without complications

== ENCOUNTER 2019-08-28 16:43 | Emergency (ER) | payer MEDICARE, OTHER ==
[2019-08-28] MEDS ORDERED: Acetaminophen 325 MG TAB ONE (19:38)
[2019-08-28 20:05] LABS: #Basophils 0.1 thou/uL (0.0-0.2); #Eosinphils 0.2 thou/uL (0.0-0.7); #Lymphocytes 2.7 thou/uL (1.20-3.40); #Monocytes 1.1 thou/uL (0.11-0.59); #Neutrophils 4.2 thou/uL (1.40-6.50); %Basophils 1.4 % (0.0-1.0); %Eosinophils 2.4 % (0.0-10.0); %Lymphocytes 32.1 % (21.0-51.0); %Monocytes 13.5 % (0.0-10.0); %Neutrophils 50.7 % (42.0-75.0); Hemoglobin 11.1 g/dL (12.0-16.0); Mean Corpuscular HGB CONC 32.9 g/dL (32.0-36.0); Mean Corpuscular Hemoglobin 31.5 pg (27.0-31.0); Mean Corpuscular Volume 95.7 fL (78.0-98.0); Mean Platelet Volume 6.9 fL (7.4-10.4); Platelet Count 410 thou/uL (130-400); Red Blood Cell (RBC) Count 3.54 mill/uL (4.20-5.40); White Blood Cell (WBC) Count 8.3 thou/uL (4.8-10.8)
[2019-08-28 20:26] LABS: Anion Gap 14 mmol/L (10-20); BUN (Urea Nitrogen) 26 mg/dL (9.8-20.1); Calc. Creatinine Clearance 0 mL/min (70-130); Calcium 10.5 mg/dL (7.8-10.44); Carbon Dioxide 27 mmol/L (23-31); Chloride 98 mmol/L (98-107); Estimated GFR-MDRD 32; Glucose 166 mg/dL (80-115); Potassium 3.9 mmol/L (3.5-5.1); Sodium 135 mmol/L (136-145)
[2019-08-28 22:01] LABS: Bacteria/HPF None Seen HPF (None Seen); Bilirubin Negative (Negative); Blood, Urine Negative (Negative); Clarity Clear (Clear); Glucose, Urine (Dipstick) Normal (Negative); Leukocyte Negative Leu/uL (Negative); Nitrite Negative (Negative); Protein, Urine (Dipstick) 30 mg/dL (Neg-Trace); RBC/HPF 0-3 HPF (0-3); Squamous Epithelial 0-3 HPF (0-3); Urobilinogen 3 mg/dL (Less than 2); WBC/HPF 0-3 HPF (0-3)
[2019-08-28] MEDS ORDERED: Ondansetron PF 4 MG/2 ML Vial ONE ×2 (22:15→23:04)
[2019-08-28] MEDS ORDERED: traMADol HCl 50 MG TAB ONE (22:15)
== END 2019-08-28 23:49 | disposition home or self-care (01) ==
LOC: ERS 16:43
DX: F41.1 Generalized anxiety disorder (principal); M54.5 Low back pain; N17.9 Acute kidney failure, unspecified; E86.0 Dehydration; I25.2 Old myocardial infarction; E11.9 Type 2 diabetes mellitus without complications; I10 Essential (primary) hypertension; Z79.899 Other long term (current) drug therapy; Z79.84 Long term (current) use of oral hypoglycemic drugs
CPT/HCPCS: 36415; 51701; 80048; 81003; 81015; 85025; 96361; 96374; 96376; 99284; A4353; J2405

== ENCOUNTER 2019-09-09 14:48 | Emergency (ER) | payer MEDICARE, OTHER ==
[2019-09-09] MEDS ORDERED: Ibuprofen 800 MG TAB ONE (15:26)
== END 2019-09-09 15:33 | disposition home or self-care (01) ==
LOC: ERS 14:48
DX: G89.29 Other chronic pain (principal); M25.551 Pain in right hip; M54.5 Low back pain; I25.2 Old myocardial infarction; E11.9 Type 2 diabetes mellitus without complications; I10 Essential (primary) hypertension; M19.90 Unspecified osteoarthritis, unspecified site; F41.9 Anxiety disorder, unspecified; Z79.84 Long term (current) use of oral hypoglycemic drugs; Z79.899 Other long term (current) drug therapy
CPT/HCPCS: 99283

== ENCOUNTER 2020-02-11 09:00 | Emergency (ER) | payer MEDICARE, OTHER ==
[2020-02-11] MEDS ORDERED: Acetaminophen 325 MG TAB ONE (09:22)
[2020-02-11] MEDS ORDERED: hydrOXYzine 25 MG TAB ONE (09:22)
== END 2020-02-11 09:48 | disposition home or self-care (01) ==
LOC: ERS 09:00
DX: F41.9 Anxiety disorder, unspecified (principal); M06.9 Rheumatoid arthritis, unspecified; I25.2 Old myocardial infarction; E11.9 Type 2 diabetes mellitus without complications; I10 Essential (primary) hypertension; J45.909 Unspecified asthma, uncomplicated; M19.90 Unspecified osteoarthritis, unspecified site; Z79.84 Long term (current) use of oral hypoglycemic drugs; Z79.52 Long term (current) use of systemic steroids; Z79.899 Other long term (current) drug therapy
CPT/HCPCS: 99283

== ENCOUNTER 2020-02-12 15:36 | Emergency (ER) | payer MEDICARE, OTHER ==
[2020-02-12] MEDS ORDERED: Acetaminophen 325 MG/10.15 ML UDCUP ONE (16:30)
[2020-02-12] MEDS ORDERED: hydrOXYzine 25 MG TAB ONE (16:30)
[2020-02-12] MEDS ORDERED: Acetaminophen 325 MG TAB ONE (16:31)
== END 2020-02-12 17:20 | disposition home or self-care (01) ==
LOC: ERS 15:36
DX: F41.1 Generalized anxiety disorder (principal); I25.2 Old myocardial infarction; E11.9 Type 2 diabetes mellitus without complications; I10 Essential (primary) hypertension; J45.909 Unspecified asthma, uncomplicated; Z79.899 Other long term (current) drug therapy; Z79.84 Long term (current) use of oral hypoglycemic drugs
CPT/HCPCS: 99283

== ENCOUNTER 2020-02-19 14:25 | Emergency (ER) | payer MEDICARE, OTHER ==
--- NOTE | 2020-02-19 15:23 | RAD ---
Chest one view and abdomen 2 views: HISTORY: Constipation FINDINGS: The heart size normal. The lungs are clear. No free air or differential fluid levels are seen. The sarah wel gas pattern is unremarkable. There are postop changes of cholecystectomy. There is fecal material in the colon. Degenerative changes seen in the spine.
== END 2020-02-19 16:20 | disposition home or self-care (01) ==
LOC: ERS 14:25
DX: K59.00 Constipation, unspecified (principal); I25.2 Old myocardial infarction; I10 Essential (primary) hypertension; E11.9 Type 2 diabetes mellitus without complications; J45.909 Unspecified asthma, uncomplicated; M19.90 Unspecified osteoarthritis, unspecified site; F41.9 Anxiety disorder, unspecified; Z79.84 Long term (current) use of oral hypoglycemic drugs; Z79.899 Other long term (current) drug therapy
CPT/HCPCS: 74022

== ENCOUNTER 2020-03-28 08:36 | Emergency (ER) | payer MEDICARE, OTHER ==
[2020-03-28] MEDS ORDERED: Ketorolac Tromethamine 30 MG/ML VIAL ONE (09:32)
== END 2020-03-28 09:47 | disposition home or self-care (01) ==
LOC: ERS 08:36
DX: M79.621 Pain in right upper arm (principal); M79.651 Pain in right thigh; G89.29 Other chronic pain; I25.2 Old myocardial infarction; E11.9 Type 2 diabetes mellitus without complications; I10 Essential (primary) hypertension; M19.90 Unspecified osteoarthritis, unspecified site; F41.9 Anxiety disorder, unspecified; Z79.84 Long term (current) use of oral hypoglycemic drugs; Z79.899 Other long term (current) drug therapy; V09.20XA Pedestrian injured in traffic accident involving unspecified motor vehicles, initial encounter; Y92.89 Other specified places as the place of occurrence of the external cause
CPT/HCPCS: 96372; 99282; J1885

== ENCOUNTER 2020-04-28 00:37 | Emergency (ER) | payer MEDICARE, OTHER ==
[2020-04-28 01:34] LABS: #Basophils 0.1 thou/uL (0.0-0.2); #Eosinphils 0.1 thou/uL (0.0-0.7); #Lymphocytes 1.6 thou/uL (1.20-3.40); #Monocytes 1.2 thou/uL (0.11-0.59); #Neutrophils 6.9 thou/uL (1.40-6.50); %Basophils 0.8 % (0.0-1.0); %Eosinophils 1.4 % (0.0-10.0); %Monocytes 11.8 % (0.0-10.0); Mean Corpuscular HGB CONC 32.4 g/dL (32.0-36.0); Mean Corpuscular Hemoglobin 32.8 pg (27.0-31.0); Mean Platelet Volume 7.3 fL (7.4-10.4); Platelet Count 402 thou/uL (130-400); RBC Distribution Width 16.5 % (11.5-14.5); Red Blood Cell (RBC) Count 3.05 mill/uL (4.20-5.40); White Blood Cell (WBC) Count 9.9 thou/uL (4.8-10.8)
[2020-04-28 01:54] LABS: ALT (SGPT) 29 U/L (8-55); AST (SGOT) 21 U/L (5-34); Albumin 4.1 g/dL (3.4-4.8); Alkaline Phosphatase 84 U/L (40-110); Anion Gap 15 mmol/L (10-20); BUN (Urea Nitrogen) 10 mg/dL (9.8-20.1); Bilirubin, Total 0.3 mg/dL (0.2-1.2); Calc. Creatinine Clearance 0 mL/min (70-130); Calcium 9.9 mg/dL (7.8-10.44); Carbon Dioxide 28 mmol/L (23-31); Chloride 92 mmol/L (98-107); Estimated GFR-MDRD 82; Globulin 3.6 g/dL (2.4-3.5); Glucose 142 mg/dL (80-115); Potassium 3.7 mmol/L (3.5-5.1); Protein, Total 7.7 g/dL (6.0-8.3); Sodium 131 mmol/L (136-145)
--- NOTE | 2020-04-28 07:18 | CT ---
PRELIMINARY REPORT/[facility]/AFTER HOURS PROCEDURE CT ABDOMENA ND PELVIS WITH INTRAVENOUS CONTRAST: CLINICAL HISTORY: Constipation x3 days. TECHNIQUE: Axial computed tomography images of the abdomen and pelvis with intravenous contrast. CONTRAST: With 90 mL [id number]. COMPARISON: CT abdomen/pelvis with contrast from 04/26/2019 9:10 p.m. [facility]. FINDINGS LUNG BASES: There are small patchy infiltrate versus atelectasis in the left lower lobe. LIVER: Unremarkable. GALLBLADDER AND BILE DUCTS: The patient has had a cholecystectomy. PANCREAS: Unremarkable. SPLEEN: Unremarkable. ADRENAL GLANDS: Unremarkable. KIDNEYS, URETERS, AND BLADDER: Unremarkable. No hydronephrosis or nephrolithiasis. No ureteral or alexi dder calculi. STOMACH AND BOWEL: No obstruction. No wall thickening. No CT evidence of colitis or acute diverticuli tis. APPENDIX: No CT evidence for appendicitis. PERITONEUM: No free fluid. No free air. LYMPH NODES: No lymphadenopathy. REPRODUCTIVE: The patient has had a hysterectomy. VASCULATURE: No aortic aneurysm. BONES: No fracture or suspicious osseous abnormality. ABDOMINAL WALL AND SOFT TISSUES: Unremarkable. IMPRESSION: There are small patchy infiltrate versus atelectasis in the left lower lobe. ELECTRONICALLY SIGNED BY: Kenny Wiggins MD Apr 28, 2020 2:35:15 AM [facility] This report is intended for review by the ordering physician only, in accordance of law. If you recei ve this report in error, please call [facility] at [phone]. FINAL REPORT I agree with the preliminary report provided. There are some patchy areas of air space consolidation in the left lower lobe, suspicious for develop ing pneumonia. No additional acute abnormality is grossly evident. Chronic findings as above. CODE QA POS: [facility]
[2020-04-28] MEDS ORDERED: Iopamidol-370 76% 500 ML 1 ML ONE (16:00)
== END 2020-04-28 03:07 ==
LOC: ERS 00:37
DX: R10.11 Right upper quadrant pain (principal); F41.9 Anxiety disorder, unspecified; I25.2 Old myocardial infarction; E11.9 Type 2 diabetes mellitus without complications; I10 Essential (primary) hypertension; M19.90 Unspecified osteoarthritis, unspecified site; Z79.84 Long term (current) use of oral hypoglycemic drugs; Z79.899 Other long term (current) drug therapy
CPT/HCPCS: 74177; 80053; 85025; Q9967

== ENCOUNTER 2020-05-01 10:17 | Emergency (ER) | payer MEDICARE, OTHER ==
[2020-05-01 11:33] LABS: #Basophils 0.1 thou/uL (0.0-0.2); #Eosinphils 0.1 thou/uL (0.0-0.7); #Lymphocytes 1.9 thou/uL (1.20-3.40); #Monocytes 1.1 thou/uL (0.11-0.59); #Neutrophils 5.2 thou/uL (1.40-6.50); %Basophils 1.3 % (0.0-1.0); %Eosinophils 1.8 % (0.0-10.0); %Lymphocytes 22.1 % (21.0-51.0); %Neutrophils 61.9 % (42.0-75.0); Mean Corpuscular HGB CONC 32.7 g/dL (32.0-36.0); Mean Platelet Volume 7.4 fL (7.4-10.4); Platelet Count 435 thou/uL (130-400); RBC Distribution Width 16.1 % (11.5-14.5); Red Blood Cell (RBC) Count 3.04 mill/uL (4.20-5.40); White Blood Cell (WBC) Count 8.5 thou/uL (4.8-10.8)
--- NOTE | 2020-05-01 11:46 | RAD ---
SUPINE ABDOMEN: Date: 05/01/2020 HISTORY: Right flank pain. Compared to abdominal films dated 02/19/2020. FINDINGS/IMPRESSION: On today's exam, there appears to be gas-filled colon interposed under the right hemidiaphragm, which is a new finding. Gas-filled loops of bowel into the left hemidiaphragm also noted. The bowel gas pa ttern is otherwise unremarkable. No other significant finding or interval change. POS: [facility]
[2020-05-01 11:53] LABS: ALT (SGPT) 19 U/L (8-55); AST (SGOT) 17 U/L (5-34); Albumin 3.8 g/dL (3.4-4.8); Alkaline Phosphatase 82 U/L (40-110); Anion Gap 15 mmol/L (10-20); BUN (Urea Nitrogen) 7 mg/dL (9.8-20.1); Bilirubin, Total 0.2 mg/dL (0.2-1.2); Calc. Creatinine Clearance 0 mL/min (70-130); Calcium 9.4 mg/dL (7.8-10.44); Carbon Dioxide 29 mmol/L (23-31); Chloride 91 mmol/L (98-107); Estimated GFR-MDRD 90; Globulin 3.4 g/dL (2.4-3.5); Glucose 120 mg/dL (80-115); Potassium 3.3 mmol/L (3.5-5.1); Protein, Total 7.2 g/dL (6.0-8.3); Sodium 132 mmol/L (136-145)
[2020-05-01] MEDS ORDERED: Potassium Chloride 20 MEQ TAB ONE (12:38)
[2020-05-01 13:00] LABS: Bacteria/HPF 4+ HPF (None Seen); Bilirubin Negative (Negative); Blood, Urine Negative (Negative); Clarity Turbid (Clear); Glucose, Urine (Dipstick) Normal (Negative); Ketone, Urine Negative (Negative); Leukocyte 500 Leu/uL (Negative); Nitrite Negative (Negative); Protein, Urine (Dipstick) Negative (Neg-Trace); RBC/HPF 0-3 HPF (0-3); Specific Gravity, Urine 1.009 (1.002-1.036); Urobilinogen Normal mg/dL (Less than 2); WBC/HPF Greater than 50 HPF (0-3)
--- NOTE | 2020-05-01 13:32 | CT ---
CT ABDOMEN AND PELVIS WITHOUT CONTRAST STONE PROTOCOL: HISTORY: Flank pain. COMPARISON: CT exam 3 days prior. FINDINGS: Similar appearance of the left basilar atelectasis of both lower lobes. No significant pericardial e ffusion. No nephroureteral lithiasis or hydroureteral nephrosis. No secondary evidence of a recently passed s tone. Small fat-containing umbilical hernia. No dilated loops of large or small bowel. Likely reactive right external lymph nodes. No retroperitoneal or periaortic adenopathy. Old L3 superior end plate compression deformity. Grade L1 over L5 anterolisthesis. Noncontrast evaluation of the liver, spleen, and pancreas are all unremarkable. Large second portion of duodenum diverticulum. 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 IMPRESSION: 1. No nephroureteral lithiasis or hydroureteral nephrosis. No secondary evidence of a recently pass ed stone. 2. 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 3. No acute inflammatory process within the abdomen or pelvis. POS: [facility]
== END 2020-05-01 14:15 | disposition home or self-care (01) ==
LOC: ERS 10:17
DX: N39.0 Urinary tract infection, site not specified (principal); E11.9 Type 2 diabetes mellitus without complications; I25.2 Old myocardial infarction; I10 Essential (primary) hypertension; J45.909 Unspecified asthma, uncomplicated; M19.90 Unspecified osteoarthritis, unspecified site; F41.9 Anxiety disorder, unspecified; Z79.899 Other long term (current) drug therapy; Z79.52 Long term (current) use of systemic steroids; Z79.84 Long term (current) use of oral hypoglycemic drugs
CPT/HCPCS: 36415; 74018; 74176; 80053; 81003; 81015; 85025; 87077; 87086; 87186

== ENCOUNTER 2020-05-05 09:42 | Emergency (ER) | payer MEDICARE, OTHER ==
[2020-05-05] MEDS ORDERED: Glycerin Pediatric Sup. (4ml) ONE (10:17)
[2020-05-05 10:27] LABS: #Eosinphils 0.2 thou/uL (0.0-0.7); #Monocytes 1.1 thou/uL (0.11-0.59); #Neutrophils 5.5 thou/uL (1.40-6.50); %Basophils 0.5 % (0.0-1.0); %Eosinophils 1.8 % (0.0-10.0); %Lymphocytes 23.2 % (21.0-51.0); %Monocytes 12.1 % (0.0-10.0); %Neutrophils 62.5 % (42.0-75.0); Hemoglobin 9.1 g/dL (12.0-16.0); Mean Corpuscular HGB CONC 32.8 g/dL (32.0-36.0); Mean Corpuscular Hemoglobin 32.9 pg (27.0-31.0); Mean Platelet Volume 6.9 fL (7.4-10.4); Platelet Count 410 thou/uL (130-400); RBC Distribution Width 16.1 % (11.5-14.5); Red Blood Cell (RBC) Count 2.76 mill/uL (4.20-5.40); White Blood Cell (WBC) Count 8.8 thou/uL (4.8-10.8)
[2020-05-05 10:47] LABS: ALT (SGPT) 16 U/L (8-55); AST (SGOT) 19 U/L (5-34); Albumin 3.5 g/dL (3.4-4.8); Alkaline Phosphatase 77 U/L (40-110); Anion Gap 15 mmol/L (10-20); BUN (Urea Nitrogen) 6 mg/dL (9.8-20.1); Bilirubin, Total 0.2 mg/dL (0.2-1.2); Calc. Creatinine Clearance 0 mL/min (70-130); Calcium 9.4 mg/dL (7.8-10.44); Carbon Dioxide 26 mmol/L (23-31); Chloride 99 mmol/L (98-107); Estimated GFR-MDRD Greater than 90; Globulin 3.1 g/dL (2.4-3.5); Glucose 87 mg/dL (80-115); Potassium 3.8 mmol/L (3.5-5.1); Protein, Total 6.6 g/dL (6.0-8.3); Sodium 136 mmol/L (136-145)
== END 2020-05-05 11:17 | disposition home or self-care (01) ==
LOC: ERS 09:42
DX: D64.9 Anemia, unspecified (principal); I10 Essential (primary) hypertension; E11.9 Type 2 diabetes mellitus without complications; M19.90 Unspecified osteoarthritis, unspecified site; J45.909 Unspecified asthma, uncomplicated; F41.9 Anxiety disorder, unspecified; Z79.899 Other long term (current) drug therapy; Z79.84 Long term (current) use of oral hypoglycemic drugs
CPT/HCPCS: 36415; 80053; 85025; 99284

== ENCOUNTER 2020-08-04 10:49 | Emergency (ER) | payer MEDICARE, OTHER ==
[2020-08-04] MEDS ORDERED: Ibuprofen 200 MG TAB ONE (12:06)
== END 2020-08-04 12:09 | disposition home or self-care (01) ==
LOC: ERS 10:49
DX: G89.18 Other acute postprocedural pain (principal); E11.9 Type 2 diabetes mellitus without complications; I10 Essential (primary) hypertension; J45.909 Unspecified asthma, uncomplicated; I25.2 Old myocardial infarction; Z79.84 Long term (current) use of oral hypoglycemic drugs; Z79.899 Other long term (current) drug therapy
CPT/HCPCS: 99283

== ENCOUNTER 2020-08-26 09:10 | Emergency (ER) | payer MEDICARE, OTHER ==
[2020-08-26] MEDS ORDERED: Ketorolac Tromethamine 30 MG/ML VIAL ONE (10:05)
== END 2020-08-26 10:26 | disposition home or self-care (01) ==
LOC: ERS 09:10
DX: M79.672 Pain in left foot (principal); M79.671 Pain in right foot; E11.9 Type 2 diabetes mellitus without complications; I10 Essential (primary) hypertension; J45.909 Unspecified asthma, uncomplicated; M19.90 Unspecified osteoarthritis, unspecified site; I25.2 Old myocardial infarction
CPT/HCPCS: 96372; 99283; J1885

== ENCOUNTER 2020-09-23 09:31 | Emergency (ER) | payer MEDICARE, OTHER ==
[2020-09-23] MEDS ORDERED: Ketorolac Tromethamine 30 MG/ML VIAL ONE (11:42)
== END 2020-09-23 11:52 | disposition home or self-care (01) ==
LOC: ERS 09:31
DX: M06.9 Rheumatoid arthritis, unspecified (principal); E11.9 Type 2 diabetes mellitus without complications; I10 Essential (primary) hypertension; I21.9 Acute myocardial infarction, unspecified
CPT/HCPCS: 96372; 99283; J1885

== ENCOUNTER 2020-10-19 08:07 | Emergency (ER) | payer MEDICARE, OTHER | END 2020-10-19 10:27 | disposition home or self-care (01) | LOC: ERS 08:07 | DX: M25.569 Pain in unspecified knee (principal); M25.572 Pain in left ankle and joints of left foot; M25.571 Pain in right ankle and joints of right foot; M19.90 Unspecified osteoarthritis, unspecified site; E11.9 Type 2 diabetes mellitus without complications; I10 Essential (primary) hypertension; Z79.84 Long term (current) use of oral hypoglycemic drugs; Z79.899 Other long term (current) drug therapy; Z79.52 Long term (current) use of systemic steroids; W05.0XXA Fall from non-moving wheelchair, initial encounter ==

== ENCOUNTER 2020-12-07 08:23 | Emergency (ER) | payer MEDICARE, OTHER ==
[2020-12-07] MEDS ORDERED: Bacitracin 1 PK ONE (08:49)
== END 2020-12-07 08:53 | disposition home or self-care (01) ==
LOC: ERS 08:23
DX: S61.214A Laceration without foreign body of right ring finger without damage to nail, initial encounter (principal); I25.2 Old myocardial infarction; E11.9 Type 2 diabetes mellitus without complications; I10 Essential (primary) hypertension; J45.909 Unspecified asthma, uncomplicated; M19.90 Unspecified osteoarthritis, unspecified site; Z87.891 Personal history of nicotine dependence; Z79.84 Long term (current) use of oral hypoglycemic drugs; Z79.899 Other long term (current) drug therapy; W45.8XXA Other foreign body or object entering through skin, initial encounter
CPT/HCPCS: 99282

== ENCOUNTER 2020-12-17 07:51 | Emergency (ER) | payer MEDICARE | END 2020-12-17 09:02 | disposition home or self-care (01) | LOC: ERS 07:51 | DX: K13.0 Diseases of lips (principal); K06.8 Other specified disorders of gingiva and edentulous alveolar ridge; I10 Essential (primary) hypertension; E11.9 Type 2 diabetes mellitus without complications; I25.2 Old myocardial infarction; J45.909 Unspecified asthma, uncomplicated; Z79.84 Long term (current) use of oral hypoglycemic drugs; Z79.899 Other long term (current) drug therapy | CPT/HCPCS: 99283 ==

== ENCOUNTER 2021-02-08 10:07 | Emergency (ER) | payer MEDICARE, MEDICAID ==
[2021-02-08] MEDS ORDERED: Naproxen 500 MG TAB ONE (11:39)
== END 2021-02-08 11:42 | disposition home or self-care (01) ==
LOC: ERS 10:07
DX: S61.512D Laceration without foreign body of left wrist, subsequent encounter (principal); I25.2 Old myocardial infarction; E11.9 Type 2 diabetes mellitus without complications; I10 Essential (primary) hypertension; K21.9 Gastro-esophageal reflux disease without esophagitis; E78.5 Hyperlipidemia, unspecified; Z87.891 Personal history of nicotine dependence
CPT/HCPCS: 99282

== ENCOUNTER 2021-02-15 15:09 | Emergency (ER) | payer MEDICARE, MEDICAID | END 2021-02-15 16:45 | disposition home or self-care (01) | LOC: ERS 15:09 | DX: M79.642 Pain in left hand (principal); I25.2 Old myocardial infarction; E11.9 Type 2 diabetes mellitus without complications; I10 Essential (primary) hypertension; J45.909 Unspecified asthma, uncomplicated; M19.90 Unspecified osteoarthritis, unspecified site; K21.9 Gastro-esophageal reflux disease without esophagitis; E78.5 Hyperlipidemia, unspecified; Z87.891 Personal history of nicotine dependence ==

== ENCOUNTER 2021-02-22 15:10 | Emergency (ER) | payer MEDICARE, MEDICAID ==
[2021-02-22] MEDS ORDERED: Ketorolac Tromethamine 30 MG/ML VIAL ONE (15:37)
== END 2021-02-22 16:17 | disposition home or self-care (01) ==
LOC: ERS 15:10
DX: M25.471 Effusion, right ankle (principal); I10 Essential (primary) hypertension; E11.9 Type 2 diabetes mellitus without complications; J45.909 Unspecified asthma, uncomplicated; K21.9 Gastro-esophageal reflux disease without esophagitis; E78.5 Hyperlipidemia, unspecified; M19.90 Unspecified osteoarthritis, unspecified site; I25.2 Old myocardial infarction; Z95.5 Presence of coronary angioplasty implant and graft; Z87.891 Personal history of nicotine dependence
CPT/HCPCS: 96372; J1885

== ENCOUNTER 2021-02-28 10:07 | Emergency (ER) | payer MEDICARE, MEDICAID ==
[2021-02-28] MEDS ORDERED: Triple Antibiotic Oint 1 GM Packet ONE (11:47)
== END 2021-03-01 02:03 | disposition home or self-care (01) ==
LOC: ERS 10:07
DX: Z48.00 Encounter for change or removal of nonsurgical wound dressing (principal); L97.219 Non-pressure chronic ulcer of right calf with unspecified severity; I25.2 Old myocardial infarction; E11.9 Type 2 diabetes mellitus without complications; I10 Essential (primary) hypertension; M19.90 Unspecified osteoarthritis, unspecified site; K21.9 Gastro-esophageal reflux disease without esophagitis; E78.5 Hyperlipidemia, unspecified; J45.909 Unspecified asthma, uncomplicated; Z87.891 Personal history of nicotine dependence; Z95.1 Presence of aortocoronary bypass graft
CPT/HCPCS: 99282

== ENCOUNTER 2021-03-03 10:09 | Emergency (ER) | payer MEDICARE, MEDICAID ==
[2021-03-03] MEDS ORDERED: Ketorolac Tromethamine 30 MG/ML VIAL ONE (11:17)
== END 2021-03-03 12:46 | disposition home or self-care (01) ==
LOC: ERS 10:09
DX: S93.402A Sprain of unspecified ligament of left ankle, initial encounter (principal); M25.511 Pain in right shoulder; X50.1XXA Overexertion from prolonged static or awkward postures, initial encounter; Z79.84 Long term (current) use of oral hypoglycemic drugs; Z79.899 Other long term (current) drug therapy; Z79.82 Long term (current) use of aspirin; E11.9 Type 2 diabetes mellitus without complications; I10 Essential (primary) hypertension; K21.9 Gastro-esophageal reflux disease without esophagitis; M19.90 Unspecified osteoarthritis, unspecified site; E78.5 Hyperlipidemia, unspecified; Z87.891 Personal history of nicotine dependence
CPT/HCPCS: 96372; J1885

== ENCOUNTER 2021-03-08 09:05 | Emergency (ER) | payer MEDICARE, MEDICAID ==
[2021-03-08] MEDS ORDERED: Ketorolac Tromethamine 30 MG/ML VIAL ONE (09:42)
== END 2021-03-08 09:55 | disposition home or self-care (01) ==
LOC: ERS 09:05
DX: M54.2 Cervicalgia (principal); G89.29 Other chronic pain; M25.511 Pain in right shoulder; I25.2 Old myocardial infarction; E11.9 Type 2 diabetes mellitus without complications; I10 Essential (primary) hypertension; J45.909 Unspecified asthma, uncomplicated; M19.90 Unspecified osteoarthritis, unspecified site; K21.9 Gastro-esophageal reflux disease without esophagitis; E78.5 Hyperlipidemia, unspecified; Z87.891 Personal history of nicotine dependence
CPT/HCPCS: 96372; 99283; J1885

== ENCOUNTER 2021-03-26 14:36 | Emergency (ER) | payer MEDICARE, MEDICAID ==
[2021-03-26] MEDS ORDERED: Ketorolac Tromethamine 30 MG/ML VIAL ONE (17:11)
== END 2021-03-26 17:13 | disposition home or self-care (01) ==
LOC: ERS 14:36
DX: M25.512 Pain in left shoulder (principal); M25.552 Pain in left hip; I25.2 Old myocardial infarction; E11.9 Type 2 diabetes mellitus without complications; I10 Essential (primary) hypertension; K21.9 Gastro-esophageal reflux disease without esophagitis; E78.5 Hyperlipidemia, unspecified; Z87.891 Personal history of nicotine dependence
CPT/HCPCS: 96372; J1885

== ENCOUNTER 2021-04-14 07:52 | Emergency (ER) | payer MEDICARE, MEDICAID ==
[2021-04-14] MEDS ORDERED: Acetaminophen 500 MG TAB ONE (10:05)
[2021-04-14] MEDS ORDERED: Dexamethasone 4 MG TAB ONE (10:05)
== END 2021-04-14 10:20 | disposition home or self-care (01) ==
LOC: ERS 07:52
DX: M25.512 Pain in left shoulder (principal); M25.511 Pain in right shoulder; E11.9 Type 2 diabetes mellitus without complications; E78.5 Hyperlipidemia, unspecified; J45.909 Unspecified asthma, uncomplicated; M19.90 Unspecified osteoarthritis, unspecified site; I25.2 Old myocardial infarction; K21.9 Gastro-esophageal reflux disease without esophagitis; Z87.891 Personal history of nicotine dependence
CPT/HCPCS: 99283; J8540

== ENCOUNTER 2021-04-20 14:48 | Emergency (ER) | payer MEDICARE, MEDICAID ==
[2021-04-20] MEDS ORDERED: predniSONE 20 MG TAB ONE ×2 (15:17→15:32)
== END 2021-04-20 16:30 | disposition home or self-care (01) ==
LOC: ERS 14:48
DX: M54.6 Pain in thoracic spine (principal); E11.9 Type 2 diabetes mellitus without complications; I10 Essential (primary) hypertension; K21.9 Gastro-esophageal reflux disease without esophagitis; E78.5 Hyperlipidemia, unspecified; Z87.891 Personal history of nicotine dependence
CPT/HCPCS: 71045; 93005; J7512

== ENCOUNTER 2021-05-05 14:28 | Emergency (ER) | payer MEDICARE, MEDICAID ==
[2021-05-05] MEDS ORDERED: Acetaminophen 325 MG TAB ONE (15:27)
== END 2021-05-05 15:50 | disposition home or self-care (01) ==
LOC: ERS 14:28
DX: S81.801D Unspecified open wound, right lower leg, subsequent encounter (principal); X58.XXXD Exposure to other specified factors, subsequent encounter; I25.2 Old myocardial infarction; E11.9 Type 2 diabetes mellitus without complications; I10 Essential (primary) hypertension; Z87.891 Personal history of nicotine dependence
CPT/HCPCS: 99282

== ENCOUNTER 2021-05-18 08:37 | Emergency (ER) | payer MEDICARE, MEDICAID ==
[2021-05-18] MEDS ORDERED: Mag-Al 1200 mg/1200 mg/30 ML UDCUP ONE (09:11)
[2021-05-18] MEDS ORDERED: Ondansetron ODT 4 MG TAB ONE (09:11)
[2021-05-18] MEDS ORDERED: Lidocaine Viscous Sol 2% 15 ml UD Cup ONE (09:11)
== END 2021-05-18 09:50 | disposition home or self-care (01) ==
LOC: ERS 08:37
DX: R11.2 Nausea with vomiting, unspecified (principal); I10 Essential (primary) hypertension; E11.9 Type 2 diabetes mellitus without complications; E78.5 Hyperlipidemia, unspecified; Z79.84 Long term (current) use of oral hypoglycemic drugs; Z87.891 Personal history of nicotine dependence
CPT/HCPCS: 99283; Q0162

== ENCOUNTER 2021-05-26 08:01 | Emergency (ER) | payer MEDICARE ==
[2021-05-26] MEDS ORDERED: Ondansetron ODT 4 MG TAB ONE (08:47)
[2021-05-26 09:23] LABS: #Lymphocytes 1.3 thou/uL (1.20-3.40); #Monocytes 1.3 thou/uL (0.11-0.59); #Neutrophils 9.6 thou/uL (1.40-6.50); %Basophils 0.3 % (0.0-1.0); %Eosinophils 0.3 % (0.0-10.0); %Lymphocytes 10.7 % (21.0-51.0); %Monocytes 10.4 % (0.0-10.0); %Neutrophils 78.3 % (42.0-75.0); Hemoglobin 9.2 g/dL (12.0-16.0); Mean Corpuscular HGB CONC 31.7 g/dL (32.0-36.0); Mean Corpuscular Hemoglobin 28.9 pg (27.0-31.0); Mean Corpuscular Volume 91.3 fL (78.0-98.0); Mean Platelet Volume 6.1 fL (7.4-10.4); Platelet Count 526 thou/uL (130-400); RBC Distribution Width 14.3 % (11.5-14.5); Red Blood Cell (RBC) Count 3.19 mill/uL (4.20-5.40); White Blood Cell (WBC) Count 12.2 thou/uL (4.8-10.8)
[2021-05-26 09:52] LABS: ALT (SGPT) 9 U/L (8-55); AST (SGOT) 11 U/L (5-34); Albumin 3.6 g/dL (3.4-4.8); Alkaline Phosphatase 86 U/L (40-110); Anion Gap 15 mmol/L (10-20); BUN (Urea Nitrogen) 15 mg/dL (9.8-20.1); Bilirubin, Total 0.4 mg/dL (0.2-1.2); Calc. Creatinine Clearance 0 mL/min (70-130); Calcium 9.6 mg/dL (7.8-10.44); Carbon Dioxide 29 mmol/L (23-31); Chloride 86 mmol/L (98-107); Globulin 3.5 g/dL (2.4-3.5); Glucose 171 mg/dL (80-115); Lipase 18 U/L (8-78); Potassium 3.8 mmol/L (3.5-5.1); Protein, Total 7.1 g/dL (5.8-8.1); Sodium 126 mmol/L (136-145)
[2021-05-26] MEDS ORDERED: Ketorolac Tromethamine 30 MG/ML VIAL ONE (10:33)
== END 2021-05-26 11:43 | disposition home or self-care (01) ==
LOC: ERS 08:01
DX: M25.511 Pain in right shoulder (principal); G89.29 Other chronic pain; R10.13 Epigastric pain; I10 Essential (primary) hypertension; E11.9 Type 2 diabetes mellitus without complications; J45.909 Unspecified asthma, uncomplicated; K21.9 Gastro-esophageal reflux disease without esophagitis; E78.5 Hyperlipidemia, unspecified; M19.90 Unspecified osteoarthritis, unspecified site; Z87.891 Personal history of nicotine dependence
CPT/HCPCS: 36415; 80053; 83690; 84484; 85025; 93005; 96372; J1885; Q0162

== ENCOUNTER 2021-05-28 10:18 | Emergency (ER) | payer MEDICARE | END 2021-05-28 13:15 | disposition home or self-care (01) | LOC: ERS 10:18 | DX: S60.222A Contusion of left hand, initial encounter (principal); I10 Essential (primary) hypertension; E11.9 Type 2 diabetes mellitus without complications; J45.909 Unspecified asthma, uncomplicated; K21.9 Gastro-esophageal reflux disease without esophagitis; M19.90 Unspecified osteoarthritis, unspecified site; E78.5 Hyperlipidemia, unspecified; I25.2 Old myocardial infarction; Z87.891 Personal history of nicotine dependence; W18.30XA Fall on same level, unspecified, initial encounter ==

== ENCOUNTER 2021-06-05 08:15 | Emergency (ER) | payer MEDICARE, MEDICAID | END 2021-06-05 09:20 | disposition home or self-care (01) | LOC: ERS 08:15 | DX: S93.402A Sprain of unspecified ligament of left ankle, initial encounter (principal); X50.9XXA Other and unspecified overexertion or strenuous movements or postures, initial encounter; I25.2 Old myocardial infarction; I10 Essential (primary) hypertension; E11.9 Type 2 diabetes mellitus without complications; K21.9 Gastro-esophageal reflux disease without esophagitis; E78.5 Hyperlipidemia, unspecified; M19.90 Unspecified osteoarthritis, unspecified site; Z87.891 Personal history of nicotine dependence ==

== ENCOUNTER 2021-06-09 08:45 | Emergency (ER) | payer MEDICARE, MEDICAID ==
[2021-06-09] MEDS ORDERED: Ondansetron PF 4 MG/2 ML Vial ONE (08:59)
[2021-06-09 09:24] LABS: #Lymphocytes 1.6 thou/uL (1.20-3.40); #Monocytes 1.2 thou/uL (0.11-0.59); #Neutrophils 8.1 thou/uL (1.40-6.50); %Basophils 0.4 % (0.0-1.0); %Eosinophils 0.3 % (0.0-10.0); %Lymphocytes 14.2 % (21.0-51.0); %Monocytes 11.2 % (0.0-10.0); %Neutrophils 73.9 % (42.0-75.0); Hemoglobin 9.6 g/dL (12.0-16.0); Mean Corpuscular HGB CONC 32.7 g/dL (32.0-36.0); Mean Corpuscular Hemoglobin 29.5 pg (27.0-31.0); Mean Corpuscular Volume 90.4 fL (78.0-98.0); Mean Platelet Volume 6.1 fL (7.4-10.4); Platelet Count 583 thou/uL (130-400); RBC Distribution Width 14.1 % (11.5-14.5); Red Blood Cell (RBC) Count 3.24 mill/uL (4.20-5.40)
[2021-06-09 10:52] LABS: Albumin 3.5 g/dL (3.4-4.8)
[2021-06-09 10:53] LABS: Chloride 92 mmol/L (98-107); Sodium 126 mmol/L (136-145)
[2021-06-09 10:54] LABS: Calcium 10.4 mg/dL (7.8-10.44)
[2021-06-09 10:55] LABS: Globulin 4.5 g/dL (2.4-3.5); Glucose 149 mg/dL (80-115)
[2021-06-09 10:56] LABS: Anion Gap 16 mmol/L (10-20); Bilirubin, Total 0.4 mg/dL (0.2-1.2); Carbon Dioxide 22 mmol/L (23-31)
[2021-06-09 10:58] LABS: Alkaline Phosphatase 92 U/L (40-110); Calc. Creatinine Clearance 0 mL/min (70-130)
[2021-06-09 10:59] LABS: BUN (Urea Nitrogen) 13 mg/dL (9.8-20.1)
[2021-06-09 11:00] LABS: ALT (SGPT) 9 U/L (8-55); AST (SGOT) 15 U/L (5-34)
[2021-06-09 11:01] LABS: Lipase 24 U/L (8-78)
[2021-06-09 11:40] LABS: Bacteria/HPF 2+ HPF (None Seen); Bilirubin Negative (Negative); Blood, Urine Negative (Negative); Clarity Clear (Clear); Glucose, Urine (Dipstick) Normal (Negative); Ketone, Urine Negative (Negative); Leukocyte 250 Leu/uL (Negative); Nitrite 1+ (Negative); Protein, Urine (Dipstick) Negative (Neg-Trace); RBC/HPF 0-3 HPF (0-3); Squamous Epithelial 0-3 HPF (0-3); Urobilinogen Normal mg/dL (Less than 2); WBC/HPF 21-50 HPF (0-3); pH, Urine 7.5 (5.0-9.0)
[2021-06-09 11:41] LABS: Specific Gravity, Urine 1.047 (1.002-1.036)
== END 2021-06-09 11:37 | disposition home or self-care (01) ==
LOC: ERS 08:45
DX: E87.1 Hypo-osmolality and hyponatremia (principal); E11.9 Type 2 diabetes mellitus without complications; I10 Essential (primary) hypertension; K21.9 Gastro-esophageal reflux disease without esophagitis; E78.5 Hyperlipidemia, unspecified; I25.2 Old myocardial infarction; Z87.891 Personal history of nicotine dependence
CPT/HCPCS: 74177; 80053; 81003; 81015; 83690; 84484; 85025; 93005; 96374; J2405

== ENCOUNTER 2021-06-10 14:50 | Emergency (ER) | payer MEDICARE, MEDICAID ==
[2021-06-10] MEDS ORDERED: Ibuprofen 200 MG TAB ONE (18:05)
== END 2021-06-10 18:08 | disposition home or self-care (01) ==
LOC: ERS 14:50
DX: M79.652 Pain in left thigh (principal); I10 Essential (primary) hypertension; E11.9 Type 2 diabetes mellitus without complications; K21.9 Gastro-esophageal reflux disease without esophagitis; M19.90 Unspecified osteoarthritis, unspecified site; E78.5 Hyperlipidemia, unspecified; Z87.891 Personal history of nicotine dependence

== ENCOUNTER 2021-06-12 16:59 | Emergency (ER) | payer MEDICARE ==
[2021-06-12] MEDS ORDERED: Ibuprofen 800 MG TAB ONE (17:23)
== END 2021-06-12 19:37 | disposition home or self-care (01) ==
LOC: ERS 16:59
DX: S82.401A Unspecified fracture of shaft of right fibula, initial encounter for closed fracture (principal); I10 Essential (primary) hypertension; E11.9 Type 2 diabetes mellitus without complications; I25.2 Old myocardial infarction; K21.9 Gastro-esophageal reflux disease without esophagitis; E78.5 Hyperlipidemia, unspecified; M19.90 Unspecified osteoarthritis, unspecified site; J45.909 Unspecified asthma, uncomplicated; V00.141A Fall from scooter (nonmotorized), initial encounter

== ENCOUNTER 2021-07-01 07:43 | Emergency (ER) | payer MEDICARE | END 2021-07-01 08:10 | disposition left against medical advice (07) | LOC: ERS 07:43 | DX: M79.671 Pain in right foot (principal) | CPT/HCPCS: 99283 ==

== ENCOUNTER 2021-07-02 08:19 | Emergency (ER) | payer MEDICARE ==
[2021-07-02] MEDS ORDERED: Ketorolac Tromethamine 30 MG/ML VIAL ONE (09:42)
== END 2021-07-02 10:08 | disposition home or self-care (01) ==
LOC: ERS 08:19
DX: S82.891A Other fracture of right lower leg, initial encounter for closed fracture (principal); V00.141A Fall from scooter (nonmotorized), initial encounter
CPT/HCPCS: 96372; 99283; J1885

== ENCOUNTER 2021-07-13 09:20 | Emergency (ER) | payer MEDICARE, MEDICAID ==
[2021-07-13] MEDS ORDERED: Ketorolac Tromethamine 30 MG/ML VIAL ONE (12:45)
== END 2021-07-13 13:26 | disposition home or self-care (01) ==
LOC: ERS 09:20
DX: S22.069A Unspecified fracture of T7-T8 vertebra, initial encounter for closed fracture (principal); X58.XXXA Exposure to other specified factors, initial encounter
CPT/HCPCS: 72128; 96372; J1885

== ENCOUNTER 2021-10-11 13:10 | Emergency (ER) | payer MEDICAID, MEDICARE ==
[2021-10-11 13:52] LABS: #Basophils 0.1 thou/uL (0.0-0.2); #Eosinphils 0.2 thou/uL (0.0-0.7); #Lymphocytes 1.9 thou/uL (1.20-3.40); #Monocytes 0.9 thou/uL (0.11-0.59); #Neutrophils 5.1 thou/uL (1.40-6.50); %Basophils 0.7 % (0.0-1.0); %Eosinophils 2.5 % (0.0-10.0); %Lymphocytes 23.1 % (21.0-51.0); %Monocytes 10.7 % (0.0-10.0); Hemoglobin 8.1 g/dL (12.0-16.0); Mean Corpuscular HGB CONC 32.1 g/dL (32.0-36.0); Mean Corpuscular Hemoglobin 29.1 pg (27.0-31.0); Mean Corpuscular Volume 90.5 fL (78.0-98.0); Mean Platelet Volume 7.3 fL (7.4-10.4); Platelet Count 342 thou/uL (130-400); RBC Distribution Width 14.8 % (11.5-14.5); Red Blood Cell (RBC) Count 2.79 mill/uL (4.20-5.40)
[2021-10-11] MEDS ORDERED: Clindamycin/D5W 900 mg/50 ml Premix Bag ONE (13:55)
[2021-10-11 14:16] LABS: ALT (SGPT) Less than 7 U/L (8-55); AST (SGOT) 14 U/L (5-34); Albumin 3.4 g/dL (3.4-4.8); Alkaline Phosphatase 85 U/L (40-110); Anion Gap 15 mmol/L (10-20); BUN (Urea Nitrogen) 57 mg/dL (9.8-20.1); Bilirubin, Total 0.2 mg/dL (0.2-1.2); Calc. Creatinine Clearance 0 mL/min (70-130); Calcium 9.3 mg/dL (7.8-10.44); Carbon Dioxide 30 mmol/L (23-31); Chloride 90 mmol/L (98-107); Glucose 112 mg/dL (80-115); Magnesium 1.4 mg/dL (1.6-2.6); Potassium 3.3 mmol/L (3.5-5.1); Protein, Total 7.4 g/dL (5.8-8.1); Sodium 132 mmol/L (136-145)
== END 2021-10-11 16:40 | disposition home or self-care (01) ==
LOC: ERS 13:10 → EDBD 13:10 → ERS 16:40
DX: L03.115 Cellulitis of right lower limb (principal); M25.511 Pain in right shoulder; E11.9 Type 2 diabetes mellitus without complications; I10 Essential (primary) hypertension; W19.XXXA Unspecified fall, initial encounter; W22.8XXA Striking against or struck by other objects, initial encounter
CPT/HCPCS: 36415; 71045; 80053; 83735; 84484; 85025; 86140; 87040; 93005; 96365; J3490

== ENCOUNTER 2021-10-27 11:30 | Emergency (ER) | payer OTHER ==
[2021-10-27 12:46] LABS: #Eosinphils 0.1 thou/uL (0.0-0.7); #Lymphocytes 1.7 thou/uL (1.20-3.40); #Monocytes 0.7 thou/uL (0.11-0.59); #Neutrophils 4.4 thou/uL (1.40-6.50); %Basophils 0.3 % (0.0-1.0); %Eosinophils 1.7 % (0.0-10.0); %Monocytes 10.2 % (0.0-10.0); %Neutrophils 63.8 % (42.0-75.0); Hemoglobin 7.8 g/dL (12.0-16.0); Mean Corpuscular HGB CONC 31.4 g/dL (32.0-36.0); Mean Corpuscular Hemoglobin 28.5 pg (27.0-31.0); Mean Corpuscular Volume 90.8 fL (78.0-98.0); Mean Platelet Volume 6.7 fL (7.4-10.4); Platelet Count 490 thou/uL (130-400); RBC Distribution Width 14.4 % (11.5-14.5); Red Blood Cell (RBC) Count 2.72 mill/uL (4.20-5.40); White Blood Cell (WBC) Count 6.9 thou/uL (4.8-10.8)
[2021-10-27] MEDS ORDERED: Cefepime 2 GM VIAL ONE (13:03)
[2021-10-27 13:09] LABS: ALT (SGPT) Less than 7 U/L (8-55); AST (SGOT) 14 U/L (5-34); Albumin 3.2 g/dL (3.4-4.8); Alkaline Phosphatase 88 U/L (40-110); Anion Gap 12 mmol/L (10-20); BUN (Urea Nitrogen) 29 mg/dL (9.8-20.1); Bilirubin, Total 0.3 mg/dL (0.2-1.2); Calc. Creatinine Clearance 0 mL/min (70-130); Calcium 9.1 mg/dL (7.8-10.44); Carbon Dioxide 29 mmol/L (23-31); Chloride 93 mmol/L (98-107); Globulin 3.8 g/dL (2.4-3.5); Glucose 133 mg/dL (80-115); Potassium 3.4 mmol/L (3.5-5.1); Sodium 131 mmol/L (136-145)
[2021-10-27] MEDS ORDERED: Ketorolac Tromethamine 30 MG/ML VIAL ONE (13:58)
[2021-10-27] MEDS ORDERED: Vancomycin 1 GM/200 ML BAG ONE (13:58)
== END 2021-10-27 15:08 | disposition home or self-care (01) ==
LOC: ERS 11:30
DX: S82.52XA Displaced fracture of medial malleolus of left tibia, initial encounter for closed fracture (principal); S00.12XA Contusion of left eyelid and periocular area, initial encounter; E11.9 Type 2 diabetes mellitus without complications; I10 Essential (primary) hypertension; W19.XXXA Unspecified fall, initial encounter
CPT/HCPCS: 36415; 70450; 70486; 72125; 80053; 83605; 85025; 87040; 87149; 93005; 96365; 96367; 96375; J0692; J1885; J3370

== ENCOUNTER 2021-10-30 10:07 | Outpatient (CLI) | payer OTHER, MEDICAID | END 2021-10-30 10:08 | disposition home or self-care (01) | LOC: EDBD | PROVIDERS: ATTEND Family Medicine | DX: Z74.09 Other reduced mobility (principal) ==

== ENCOUNTER 2021-11-20 09:49 | Outpatient (CLI) | payer OTHER | END 2021-11-20 09:50 | disposition home or self-care (01) | LOC: TBSIIMAG 09:49 | PROVIDERS: ATTEND Neurological Surgery | DX: S22.069A Unspecified fracture of T7-T8 vertebra, initial encounter for closed fracture (principal); M43.9 Deforming dorsopathy, unspecified | CPT/HCPCS: 72072 ==

== ENCOUNTER 2022-01-21 12:26 | Inpatient (IN) | payer OTHER, MEDICAID ==
[2022-01-21 12:53] LABS: #Lymphocytes 0.9 thou/uL (1.20-3.40); #Monocytes 0.2 thou/uL (0.11-0.59); #Neutrophils 6.2 thou/uL (1.40-6.50); %Basophils 0.5 % (0.0-1.0); %Eosinophils 0.3 % (0.0-10.0); %Lymphocytes 12.5 % (21.0-51.0); %Monocytes 2.7 % (0.0-10.0); Hemoglobin 6.3 g/dL (12.0-16.0); Mean Corpuscular HGB CONC 33.1 g/dL (32.0-36.0); Mean Corpuscular Hemoglobin 30.8 pg (27.0-31.0); Mean Corpuscular Volume 92.8 fL (78.0-98.0); Mean Platelet Volume 6.8 fL (7.4-10.4); Platelet Count 685 thou/uL (130-400); RBC Distribution Width 19.4 % (11.5-14.5); Red Blood Cell (RBC) Count 2.04 mill/uL (4.20-5.40); White Blood Cell (WBC) Count 7.4 thou/uL (4.8-10.8)
[2022-01-21 13:25] LABS: ALT (SGPT) 8 U/L (8-55); AST (SGOT) 16 U/L (5-34); Albumin 2.8 g/dL (3.4-4.8); Alkaline Phosphatase 90 U/L (40-110); Anion Gap 14 mmol/L (10-20); BUN (Urea Nitrogen) 23 mg/dL (9.8-20.1); Bilirubin, Total 0.3 mg/dL (0.2-1.2); Calc. Creatinine Clearance 0 mL/min (70-130); Calcium 8.3 mg/dL (7.8-10.44); Carbon Dioxide 25 mmol/L (23-31); Chloride 91 mmol/L (98-107); Estimated GFR 45; Globulin 2.8 g/dL (2.4-3.5); Glucose 88 mg/dL (80-115); Potassium 3.3 mmol/L (3.5-5.1); Protein, Total 5.6 g/dL (5.8-8.1); Sodium 127 mmol/L (136-145)
[2022-01-21 13:38] LABS: INR-International Normal Ratio 1.3; Prothrombin Time 16.7 sec (12.0-14.7)
[2022-01-21 13:39] LABS: PTT 50.4 sec (22.9-36.1)
[2022-01-21 13:40] LABS: Iron 49 ug/dL (50-170); Iron Binding Capacity, Total 115 mcg/dL (265-497)
[2022-01-21 14:28] LABS: Bacteria/HPF None Seen HPF (None Seen); Bilirubin Negative (Negative); Blood, Urine Negative (Negative); Clarity Clear (Clear); Glucose, Urine (Dipstick) Normal (Negative); Ketone, Urine Negative (Negative); Leukocyte 75 Leu/uL (Negative); Nitrite Negative (Negative); Protein, Urine (Dipstick) Negative (Neg-Trace); RBC/HPF 0-3 HPF (0-3); Specific Gravity, Urine 1.013 (1.002-1.036); Squamous Epithelial 0-3 HPF (0-3); WBC/HPF 0-3 HPF (0-3); pH, Urine 6.5 (5.0-9.0)
[2022-01-21] MEDS ORDERED: HYDROcodone/Acetaminophen 5/325 mg Tablet ONE (15:31)
[2022-01-21] MEDS ORDERED: Potassium Chloride 20 MEQ TAB PO SCH (16:00)
[2022-01-21] MEDS ORDERED: Ondansetron ODT 4 MG TAB PO PRN (16:03)
[2022-01-21] MEDS ORDERED: Bisacodyl 5 MG TAB PO PRN (16:03)
[2022-01-21] MEDS ORDERED: Acetaminophen 325 MG TAB PO PRN (16:03)
[2022-01-21] MEDS ORDERED: Calcium Carbonate 500 MG ChewTAB PO PRN (16:03)
[2022-01-21] MEDS ORDERED: Senokot S 8.6-50 MG TAB PO PRN (16:03)
[2022-01-21 16:09] LABS: Troponin I Less than 0.010 ng/mL (< 0.028)
[2022-01-21] MEDS ORDERED: Magnesium 2 GM/50 ML(in water) 2 GM in Premix Bag 1 BAG IVPB SCH (18:00)
[2022-01-21 19:16] VITALS: BMI 23.5
[2022-01-21] MEDS ORDERED: Simvastatin 10 MG TAB PO SCH (21:00)
[2022-01-22 01:35] LABS: Magnesium 1.6 mg/dL (1.6-2.6)
[2022-01-22] MEDS ORDERED: Magnesium 2 GM/50 ML(in water) 2 GM in Premix Bag 1 BAG IVPB SCH (04:30)
[2022-01-22 04:39] LABS: Anion Gap 14 mmol/L (10-20); BUN (Urea Nitrogen) 22 mg/dL (9.8-20.1); Calc. Creatinine Clearance 57 mL/min (70-130); Calcium 8.4 mg/dL (7.8-10.44); Carbon Dioxide 23 mmol/L (23-31); Chloride 96 mmol/L (98-107); Estimated GFR 62; Glucose 75 mg/dL (80-115); Potassium 3.2 mmol/L (3.5-5.1); Sodium 130 mmol/L (136-145)
[2022-01-22 04:44] LABS: Anisocytosis SLIGHT = 6-15 cells (100X) (0-5/hpf); Band 1 % (5-11); Hemoglobin 6.6 g/dL (12.0-16.0); Lymphocytes 10 % (21-51); MDiff Complete? YES; Mean Corpuscular Hemoglobin 30.8 pg (27.0-31.0); Mean Corpuscular Volume 93.4 fL (78.0-98.0); Mean Platelet Volume 6.8 fL (7.4-10.4); Neutrophil 89 % (42-75); Platelet Count 682 thou/uL (130-400); Platelet Morphology Comment Appears Increased; Red Blood Cell (RBC) Count 2.13 mill/uL (4.20-5.40); Target Cells SLIGHT = 2-5 cells (100X) (0-1/hpf)
[2022-01-22] MEDS ORDERED: metFORMIN 500 MG TAB PO SCH (08:00)
[2022-01-22] MEDS ORDERED: Lisinopril 2.5 MG TAB PO SCH (09:00)
[2022-01-22] MEDS ORDERED: Citalopram 10 MG TAB PO SCH (09:00)
[2022-01-22] MEDS: Lisinopril 10 MG TAB PO SCH ×2 (10:11→20:22)
[2022-01-22] MEDS: Citalopram 20 MG TAB PO SCH (10:11)
[2022-01-22] MEDS: Hydrochlorothiazide 25 MG TAB PO SCH ×2 (10:11→20:22)
[2022-01-22] MEDS: Atenolol 25 MG TAB PO SCH ×2 (10:11→20:22)
[2022-01-22] MEDS: metFORMIN 500 MG TAB PO SCH ×2 (10:11→17:24)
[2022-01-22] MEDS: Pioglitazone HCl 15 MG TAB PO SCH (10:12)
[2022-01-22 11:31] LABS: Hemoglobin 7.3 g/dL (12.0-16.0); Mean Corpuscular HGB CONC 32.2 g/dL (32.0-36.0); Mean Corpuscular Hemoglobin 30.3 pg (27.0-31.0); Mean Corpuscular Volume 94.2 fL (78.0-98.0); Mean Platelet Volume 6.7 fL (7.4-10.4); Platelet Count 785 thou/uL (130-400); RBC Distribution Width 18.4 % (11.5-14.5); White Blood Cell (WBC) Count 6.3 thou/uL (4.8-10.8)
[2022-01-22] MEDS ORDERED: Atorvastatin Calcium 10 MG TAB PO SCH (21:00)
[2022-01-23 01:09] LABS: Hemoglobin 7.5 g/dL (12.0-16.0)
[2022-01-23 07:59] LABS: Anion Gap 13 mmol/L (10-20); BUN (Urea Nitrogen) 13 mg/dL (9.8-20.1); Calc. Creatinine Clearance 66 mL/min (70-130); Calcium 9.4 mg/dL (7.8-10.44); Carbon Dioxide 25 mmol/L (23-31); Chloride 97 mmol/L (98-107); Estimated GFR 76; Glucose 77 mg/dL (80-115); Potassium 3.6 mmol/L (3.5-5.1); Sodium 131 mmol/L (136-145)
[2022-01-23] MEDS: Hydrochlorothiazide 25 MG TAB PO SCH (08:26)
[2022-01-23] MEDS: metFORMIN 500 MG TAB PO SCH ×2 (08:26→17:26)
[2022-01-23] MEDS: Atenolol 25 MG TAB PO SCH (08:26)
[2022-01-23] MEDS: Lisinopril 10 MG TAB PO SCH (08:26)
[2022-01-23] MEDS: Citalopram 20 MG TAB PO SCH (08:26)
[2022-01-23] MEDS: Pioglitazone HCl 15 MG TAB PO SCH (08:26)
[2022-01-23] MEDS ORDERED: Magnesium Oxide 400 MG TAB PO SCH (09:00)
[2022-01-23 09:21] LABS: Anion Gap 14 mmol/L (10-20); BUN (Urea Nitrogen) 13 mg/dL (9.8-20.1); Calc. Creatinine Clearance 67 mL/min (70-130); Calcium 9.2 mg/dL (7.8-10.44); Carbon Dioxide 23 mmol/L (23-31); Chloride 98 mmol/L (98-107); Estimated GFR 77; Glucose 80 mg/dL (80-115); Potassium 3.8 mmol/L (3.5-5.1); Sodium 131 mmol/L (136-145)
[2022-01-23 10:53] LABS: Hemoglobin 9.1 g/dL (12.0-16.0)
[2022-01-23 17:43] VITALS: BP 163/63; TEMP 99.9
== END 2022-01-23 19:30 | disposition home or self-care (01) | DRG 641 ==
LOC: ERS 12:26 → 2NO 14:35 → MERGE 01-23 08:37 → OBSVTOIN 01-23 08:37
PROVIDERS: ADMIT Family Medicine; ATTEND Student in an Organized Health Care Education/Training Program
PROC: 30233N1 Transfusion of Nonautologous Red Blood Cells into Peripheral Vein, Percutaneous Approach (ICD-10-PCS; principal; 2022-01-21)
DX: E86.1 Hypovolemia (principal); N17.9 Acute kidney failure, unspecified; I95.89 Other hypotension; E87.1 Hypo-osmolality and hyponatremia; Z20.822 Contact with and (suspected) exposure to COVID-19; F41.9 Anxiety disorder, unspecified; I25.10 Atherosclerotic heart disease of native coronary artery without angina pectoris; E11.9 Type 2 diabetes mellitus without complications; K21.9 Gastro-esophageal reflux disease without esophagitis; Z96.653 Presence of artificial knee joint, bilateral; E87.6 Hypokalemia; I10 Essential (primary) hypertension; D63.8 Anemia in other chronic diseases classified elsewhere; I08.3 Combined rheumatic disorders of mitral, aortic and tricuspid valves; E83.42 Hypomagnesemia; Z88.1 Allergy status to other antibiotic agents; Z85.118 Personal history of other malignant neoplasm of bronchus and lung; Z90.49 Acquired absence of other specified parts of digestive tract; Z98.890 Other specified postprocedural states; Z80.1 Family history of malignant neoplasm of trachea, bronchus and lung; Z80.0 Family history of malignant neoplasm of digestive organs; Z87.891 Personal history of nicotine dependence; Z86.010 Personal history of colon polyps; Z79.899 Other long term (current) drug therapy; Z79.84 Long term (current) use of oral hypoglycemic drugs
CPT/HCPCS: 36415; 36416; 36430; 71045; 80048; 80053; 81003; 81015; 82274; 82728; 83540; 83550; 83605; 83735; 84484; 85014; 85018; 85025; 85060; 85610; 85730; 86850; 86900; 86901; 87040; 93005; 93306; 93880; 94760; J3475; P9016; Q0162; U0003; U0005

== ENCOUNTER 2022-02-01 16:10 | Emergency (ER) | payer OTHER, MEDICAID ==
[2022-02-01] MEDS ORDERED: Ketorolac Tromethamine 30 MG/ML VIAL ONE (16:39)
== END 2022-02-01 16:45 | disposition home or self-care (01) ==
LOC: EDBD → ERS 16:10
DX: M19.012 Primary osteoarthritis, left shoulder (principal); M16.0 Bilateral primary osteoarthritis of hip; E11.9 Type 2 diabetes mellitus without complications; I10 Essential (primary) hypertension
CPT/HCPCS: 96372; 99283; J1885

== ENCOUNTER 2022-02-04 09:00 | Emergency (ER) | payer OTHER ==
[2022-02-04] MEDS ORDERED: diphenhydrAMINE 25 MG CAP ONE (10:16)
[2022-02-04] MEDS ORDERED: Fluconazole 100 MG TAB PO SCH (11:30)
== END 2022-02-04 11:51 | disposition home or self-care (01) ==
LOC: EDBD 09:00 → ERS 09:00
DX: K13.0 Diseases of lips (principal); E11.9 Type 2 diabetes mellitus without complications; I10 Essential (primary) hypertension; Z87.891 Personal history of nicotine dependence; Z79.899 Other long term (current) drug therapy
CPT/HCPCS: 99283

== ENCOUNTER 2022-02-22 01:13 | Emergency (ER) | payer MEDICAID, MEDICARE, OTHER ==
[2022-02-22] MEDS ORDERED: Ondansetron ODT 8 MG TAB ONE (02:15)
== END 2022-02-22 03:55 | disposition home or self-care (01) ==
LOC: ERS 01:13
DX: F41.9 Anxiety disorder, unspecified (principal); E11.9 Type 2 diabetes mellitus without complications; I10 Essential (primary) hypertension; Z87.891 Personal history of nicotine dependence; Z79.899 Other long term (current) drug therapy
CPT/HCPCS: 36416; 99283; Q0162

== ENCOUNTER 2022-03-01 07:28 | Emergency (ER) | payer OTHER ==
[2022-03-01] MEDS ORDERED: Ketorolac Tromethamine 30 MG/ML VIAL ONE (07:54)
== END 2022-03-01 08:15 | disposition home or self-care (01) ==
LOC: ERS 07:28
DX: M19.90 Unspecified osteoarthritis, unspecified site (principal); E11.9 Type 2 diabetes mellitus without complications; I10 Essential (primary) hypertension; Z87.891 Personal history of nicotine dependence
CPT/HCPCS: 96372; 99282; J1885

== ENCOUNTER 2022-03-03 14:31 | Emergency (ER) | payer MEDICARE, MEDICAID ==
[2022-03-03] MEDS ORDERED: Ketorolac Tromethamine 30 MG/ML VIAL ONE (15:15)
== END 2022-03-03 15:38 | disposition home or self-care (01) ==
LOC: ERS 14:31
DX: M25.552 Pain in left hip (principal); M25.551 Pain in right hip; W05.0XXA Fall from non-moving wheelchair, initial encounter
CPT/HCPCS: 72170; 96372; J1885

== ENCOUNTER 2022-03-10 14:15 | Emergency (ER) | payer OTHER ==
[2022-03-10] MEDS ORDERED: Ketorolac Tromethamine 30 MG/ML VIAL ONE (16:27)
== END 2022-03-10 16:35 | disposition home or self-care (01) ==
LOC: ERS 14:15 → EDBD 14:15 → ERS 16:35
DX: M25.551 Pain in right hip (principal); G89.29 Other chronic pain; I10 Essential (primary) hypertension; E11.9 Type 2 diabetes mellitus without complications; W19.XXXA Unspecified fall, initial encounter
CPT/HCPCS: 96372; 99283; J1885

== ENCOUNTER 2022-03-17 17:04 | Inpatient (IN) | payer OTHER, MEDICAID ==
[2022-03-17 18:23] LABS: #Lymphocytes 1.1 thou/uL (1.20-3.40); %Basophils 0.2 % (0.0-1.0); %Eosinophils 0.3 % (0.0-10.0); %Lymphocytes 7.2 % (21.0-51.0); %Monocytes 13.2 % (0.0-10.0); %Neutrophils 79.1 % (42.0-75.0); Hemoglobin 8.1 g/dL (12.0-16.0); Mean Corpuscular HGB CONC 34.2 g/dL (32.0-36.0); Mean Corpuscular Hemoglobin 31.8 pg (27.0-31.0); Mean Corpuscular Volume 92.9 fL (78.0-98.0); Mean Platelet Volume 7.1 fL (7.4-10.4); Platelet Count 275 thou/uL (130-400); RBC Distribution Width 16.2 % (11.5-14.5); Red Blood Cell (RBC) Count 2.54 mill/uL (4.20-5.40); White Blood Cell (WBC) Count 15.2 thou/uL (4.8-10.8)
[2022-03-17 19:06] LABS: ALT (SGPT) 12 U/L (8-55); AST (SGOT) 32 U/L (5-34); Albumin 3.4 g/dL (3.4-4.8); Alkaline Phosphatase 120 U/L (40-110); Anion Gap 14 mmol/L (10-20); BUN (Urea Nitrogen) 9 mg/dL (9.8-20.1); Calc. Creatinine Clearance 0 mL/min (70-130); Calcium 9.1 mg/dL (7.8-10.44); Carbon Dioxide 20 mmol/L (23-31); Chloride 80 mmol/L (98-107); Estimated GFR 93; Globulin 3.7 g/dL (2.4-3.5); Glucose 61 mg/dL (80-115); Protein, Total 7.1 g/dL (5.8-8.1)
[2022-03-17 19:17] LABS: Sodium 111 mmol/L (136-145)
[2022-03-17 20:05] LABS: Bacteria/HPF 4+ HPF (None Seen); Bilirubin Negative (Negative); Blood, Urine 1+ (Negative); Clarity Turbid (Clear); Glucose, Urine (Dipstick) Normal (Negative); Ketone, Urine 10 mg/dL (Negative); Leukocyte 500 Leu/uL (Negative); Nitrite Negative (Negative); Protein, Urine (Dipstick) 20 mg/dL (Neg-Trace); Renal Epithelial 0-3 HPF (None Seen); Squamous Epithelial 0-3 HPF (0-3); Urobilinogen 3 mg/dL (Less than 2); WBC/HPF Greater than 50 HPF (0-3)
[2022-03-17] MEDS ORDERED: Dextrose 5% in Water 1,000 ML IV PRN (20:48)
[2022-03-17] MEDS ORDERED: HumaLOG 300 UNITS/3 ML VIAL SC PRN (20:48)
[2022-03-17] MEDS ORDERED: Dextrose 50% Abboject 50 ML SYRINGE SLOW IVP PRN (20:48)
[2022-03-17 21:01] LABS: Anion Gap 16 mmol/L (10-20); BUN (Urea Nitrogen) 9 mg/dL (9.8-20.1); Calc. Creatinine Clearance 0 mL/min (70-130); Calcium 9.1 mg/dL (7.8-10.44); Carbon Dioxide 17 mmol/L (23-31); Chloride 84 mmol/L (98-107); Estimated GFR 94; Glucose 68 mg/dL (80-115); Potassium 3.5 mmol/L (3.5-5.1)
[2022-03-17 21:08] LABS: Sodium 113 mmol/L (136-145)
[2022-03-17 22:19] LABS: SARS-CoV-2 NAA Rapid Test Not Detected (NotDetected)
[2022-03-17 22:25] LABS: Magnesium 0.9 mg/dL (1.6-2.6)
[2022-03-17 22:27] VITALS: BMI 21.9
[2022-03-17] MEDS ORDERED: Magnesium 2 GM/50 ML(in water) 2 GM in Premix Bag 1 BAG IVPB SCH (22:45)
[2022-03-17] MEDS ORDERED: Sodium Chloride 3% 500 ML IVPB SCH (23:00)
[2022-03-17] MEDS: cefTRIAXone\\ROCEPHIN 1 GM in Sodium Chloride 0.9% 100 ML IVPB SCH (23:24)
[2022-03-17 23:30] LABS: Anion Gap 15 mmol/L (10-20); BUN (Urea Nitrogen) 10 mg/dL (9.8-20.1); Calc. Creatinine Clearance 80 mL/min (70-130); Calcium 8.5 mg/dL (7.8-10.44); Carbon Dioxide 18 mmol/L (23-31); Chloride 84 mmol/L (98-107); Estimated GFR 94; Glucose 73 mg/dL (80-115); Potassium 3.4 mmol/L (3.5-5.1)
[2022-03-17 23:34] LABS: Sodium 114 mmol/L (136-145)
[2022-03-17] MEDS ORDERED: Potassium Chloride 20 MEQ TAB PO SCH (23:45)
[2022-03-18 01:41] LABS: Anion Gap 14 mmol/L (10-20); BUN (Urea Nitrogen) 9 mg/dL (9.8-20.1); Calc. Creatinine Clearance 83 mL/min (70-130); Calcium 8.7 mg/dL (7.8-10.44); Carbon Dioxide 19 mmol/L (23-31); Chloride 84 mmol/L (98-107); Estimated GFR 95; Glucose 77 mg/dL (80-115); Potassium 3.1 mmol/L (3.5-5.1)
[2022-03-18 01:45] LABS: Sodium 114 mmol/L (136-145)
[2022-03-18 04:06] LABS: #Lymphocytes 1.2 thou/uL (1.20-3.40); #Monocytes 1.7 thou/uL (0.11-0.59); #Neutrophils 8.8 thou/uL (1.40-6.50); %Basophils 0.1 % (0.0-1.0); %Eosinophils 0.1 % (0.0-10.0); %Lymphocytes 10.2 % (21.0-51.0); %Monocytes 14.2 % (0.0-10.0); %Neutrophils 75.4 % (42.0-75.0); Hemoglobin 8.1 g/dL (12.0-16.0); Mean Corpuscular HGB CONC 33.9 g/dL (32.0-36.0); Mean Corpuscular Hemoglobin 31.5 pg (27.0-31.0); Mean Corpuscular Volume 92.9 fL (78.0-98.0); Mean Platelet Volume 7.3 fL (7.4-10.4); Platelet Count 276 thou/uL (130-400); RBC Distribution Width 16.3 % (11.5-14.5); Red Blood Cell (RBC) Count 2.58 mill/uL (4.20-5.40); White Blood Cell (WBC) Count 11.7 thou/uL (4.8-10.8)
[2022-03-18 04:42] LABS: Anion Gap 14 mmol/L (10-20); BUN (Urea Nitrogen) 9 mg/dL (9.8-20.1); Calc. Creatinine Clearance 85 mL/min (70-130); Calcium 8.8 mg/dL (7.8-10.44); Carbon Dioxide 19 mmol/L (23-31); Chloride 84 mmol/L (98-107); Estimated GFR 96; Glucose 67 mg/dL (80-115); Magnesium 1.6 mg/dL (1.6-2.6); Potassium 3.4 mmol/L (3.5-5.1)
[2022-03-18 04:46] LABS: Sodium 114 mmol/L (136-145)
[2022-03-18] MEDS ORDERED: SODIUM CHLORIDE 3% IVPB SCH (05:00)
[2022-03-18] MEDS ORDERED: Potassium Chloride 20 MEQ TAB PO SCH (05:00)
[2022-03-18 07:32] LABS: Anion Gap 14 mmol/L (10-20); BUN (Urea Nitrogen) 9 mg/dL (9.8-20.1); Calc. Creatinine Clearance 82 mL/min (70-130); Carbon Dioxide 17 mmol/L (23-31); Chloride 88 mmol/L (98-107); Estimated GFR 95; Glucose 77 mg/dL (80-115); Potassium 4.1 mmol/L (3.5-5.1)
[2022-03-18 07:42] LABS: Sodium 115 mmol/L (136-145)
[2022-03-18] MEDS: Enoxaparin Sodium 40 MG/0.4 ML SYRINGE SC SCH (09:02)
[2022-03-18] MEDS: Bisacodyl 5 MG TAB PO SCH (09:03)
[2022-03-18] MEDS: Atenolol 25 MG TAB PO SCH ×2 (09:03→21:07)
[2022-03-18] MEDS: Magnesium Oxide 400 MG TAB PO SCH (09:03)
[2022-03-18 09:35] LABS: Anion Gap 12 mmol/L (10-20); BUN (Urea Nitrogen) 7 mg/dL (9.8-20.1); Calc. Creatinine Clearance 86 mL/min (70-130); Calcium 8.7 mg/dL (7.8-10.44); Carbon Dioxide 20 mmol/L (23-31); Chloride 88 mmol/L (98-107); Estimated GFR 96; Glucose 66 mg/dL (80-115)
[2022-03-18 09:40] LABS: Sodium 116 mmol/L (136-145)
[2022-03-18 11:21] LABS: Anion Gap 11 mmol/L (10-20); BUN (Urea Nitrogen) 7 mg/dL (9.8-20.1); Calc. Creatinine Clearance 86 mL/min (70-130); Calcium 8.6 mg/dL (7.8-10.44); Carbon Dioxide 20 mmol/L (23-31); Chloride 89 mmol/L (98-107); Estimated GFR 96; Glucose 82 mg/dL (80-115); Potassium 3.9 mmol/L (3.5-5.1)
[2022-03-18 11:25] LABS: Sodium 116 mmol/L (136-145)
[2022-03-18 16:42] LABS: Anion Gap 10 mmol/L (10-20); BUN (Urea Nitrogen) 7 mg/dL (9.8-20.1); Calc. Creatinine Clearance 83 mL/min (70-130); Calcium 8.6 mg/dL (7.8-10.44); Carbon Dioxide 21 mmol/L (23-31); Chloride 89 mmol/L (98-107); Estimated GFR 95; Glucose 70 mg/dL (80-115); Potassium 4.3 mmol/L (3.5-5.1)
[2022-03-18 16:52] LABS: Sodium 116 mmol/L (136-145)
[2022-03-18 20:07] LABS: Anion Gap 9 mmol/L (10-20); BUN (Urea Nitrogen) 7 mg/dL (9.8-20.1); Calc. Creatinine Clearance 83 mL/min (70-130); Calcium 8.6 mg/dL (7.8-10.44); Carbon Dioxide 22 mmol/L (23-31); Chloride 89 mmol/L (98-107); Estimated GFR 95; Glucose 67 mg/dL (80-115); Potassium 4.2 mmol/L (3.5-5.1)
[2022-03-18 20:11] LABS: Sodium 116 mmol/L (136-145)
[2022-03-18] MEDS: Atorvastatin Calcium 10 MG TAB PO SCH (21:07)
[2022-03-18] MEDS: cefTRIAXone\\ROCEPHIN 1 GM in Sodium Chloride 0.9% 100 ML IVPB SCH (21:10)
[2022-03-18 23:56] LABS: Anion Gap 10 mmol/L (10-20); BUN (Urea Nitrogen) 9 mg/dL (9.8-20.1); Calc. Creatinine Clearance 77 mL/min (70-130); Calcium 8.4 mg/dL (7.8-10.44); Carbon Dioxide 20 mmol/L (23-31); Chloride 91 mmol/L (98-107); Estimated GFR 94; Glucose 78 mg/dL (80-115); Potassium 4.2 mmol/L (3.5-5.1)
[2022-03-18 23:58] LABS: Sodium 117 mmol/L (136-145)
[2022-03-19 06:27] LABS: #Lymphocytes 1.5 thou/uL (1.20-3.40); #Monocytes 1.2 thou/uL (0.11-0.59); #Neutrophils 5.4 thou/uL (1.40-6.50); %Basophils 0.6 % (0.0-1.0); %Eosinophils 0.3 % (0.0-10.0); %Lymphocytes 17.9 % (21.0-51.0); %Monocytes 14.8 % (0.0-10.0); %Neutrophils 66.4 % (42.0-75.0); Hemoglobin 6.8 g/dL (12.0-16.0); Mean Corpuscular HGB CONC 33.6 g/dL (32.0-36.0); Mean Corpuscular Volume 95.4 fL (78.0-98.0); Mean Platelet Volume 6.9 fL (7.4-10.4); Platelet Count 325 thou/uL (130-400); RBC Distribution Width 16.2 % (11.5-14.5); Red Blood Cell (RBC) Count 2.14 mill/uL (4.20-5.40); White Blood Cell (WBC) Count 8.1 thou/uL (4.8-10.8)
[2022-03-19 06:29] LABS: Anion Gap 9 mmol/L (10-20); BUN (Urea Nitrogen) 6 mg/dL (9.8-20.1); Calc. Creatinine Clearance 76 mL/min (70-130); Calcium 8.7 mg/dL (7.8-10.44); Carbon Dioxide 22 mmol/L (23-31); Chloride 92 mmol/L (98-107); Estimated GFR 93; Glucose 72 mg/dL (80-115); Potassium 4.5 mmol/L (3.5-5.1)
[2022-03-19 06:31] LABS: Sodium 118 mmol/L (136-145)
[2022-03-19] MEDS ORDERED: Ondansetron ORAL SOLN. 4 MG/5 ML UDCUP PO PRN (08:47)
[2022-03-19 09:21] LABS: Hemoglobin 6.8 g/dL (12.0-16.0)
[2022-03-19] MEDS ORDERED: Furosemide 40 MG/4 ML VIAL SLOW IVP SCH (09:45)
[2022-03-19 10:03] LABS: Anion Gap 11 mmol/L (10-20); BUN (Urea Nitrogen) 9 mg/dL (9.8-20.1); Calc. Creatinine Clearance 76 mL/min (70-130); Calcium 8.7 mg/dL (7.8-10.44); Carbon Dioxide 18 mmol/L (23-31); Chloride 95 mmol/L (98-107); Estimated GFR 93; Glucose 87 mg/dL (80-115); Potassium 4.3 mmol/L (3.5-5.1); Sodium 120 mmol/L (136-145)
[2022-03-19] MEDS: Atenolol 25 MG TAB PO SCH ×2 (10:10→20:12)
[2022-03-19] MEDS: Bisacodyl 5 MG TAB PO SCH (10:11)
[2022-03-19] MEDS: Enoxaparin Sodium 40 MG/0.4 ML SYRINGE SC SCH (10:11)
[2022-03-19] MEDS: Magnesium Oxide 400 MG TAB PO SCH (10:11)
[2022-03-19] MEDS ORDERED: Albuterol Sulfate 2.5 mg/3 ml Neb NEB PRN (10:40)
[2022-03-19 13:37] LABS: Anion Gap 12 mmol/L (10-20); BUN (Urea Nitrogen) 7 mg/dL (9.8-20.1); Calc. Creatinine Clearance 76 mL/min (70-130); Calcium 9.2 mg/dL (7.8-10.44); Carbon Dioxide 19 mmol/L (23-31); Chloride 94 mmol/L (98-107); Estimated GFR 93; Glucose 86 mg/dL (80-115); Potassium 4.7 mmol/L (3.5-5.1); Sodium 120 mmol/L (136-145)
[2022-03-19 18:58] LABS: Hemoglobin 8.6 g/dL (12.0-16.0)
[2022-03-19 19:24] LABS: Anion Gap 12 mmol/L (10-20); BUN (Urea Nitrogen) 8 mg/dL (9.8-20.1); Calc. Creatinine Clearance 81 mL/min (70-130); Calcium 8.8 mg/dL (7.8-10.44); Carbon Dioxide 16 mmol/L (23-31); Chloride 96 mmol/L (98-107); Estimated GFR 95; Glucose 74 mg/dL (80-115); Potassium 4.5 mmol/L (3.5-5.1)
[2022-03-19 19:35] LABS: Sodium 119 mmol/L (136-145)
[2022-03-19] MEDS: Atorvastatin Calcium 10 MG TAB PO SCH (20:12)
[2022-03-19] MEDS: cefTRIAXone\\ROCEPHIN 1 GM in Sodium Chloride 0.9% 100 ML IVPB SCH (20:15)
[2022-03-20 05:39] LABS: Band 1 % (5-11); Eosinophils 1 % (0-10); Hemoglobin 8.2 g/dL (12.0-16.0); Lymphocytes 21 % (21-51); MDiff Complete? YES; Mean Corpuscular HGB CONC 34.2 g/dL (32.0-36.0); Mean Corpuscular Hemoglobin 32.3 pg (27.0-31.0); Mean Corpuscular Volume 94.5 fL (78.0-98.0); Mean Platelet Volume 6.4 fL (7.4-10.4); Monocytes 18 % (0-10); Neutrophil 59 % (42-75); Platelet Count 340 thou/uL (130-400); RBC Distribution Width 15.8 % (11.5-14.5); Red Blood Cell (RBC) Count 2.53 mill/uL (4.20-5.40); White Blood Cell (WBC) Count 7.1 thou/uL (4.8-10.8)
[2022-03-20 06:03] LABS: Anion Gap 10 mmol/L (10-20); BUN (Urea Nitrogen) 8 mg/dL (9.8-20.1); Calc. Creatinine Clearance 76 mL/min (70-130); Calcium 9.3 mg/dL (7.8-10.44); Carbon Dioxide 20 mmol/L (23-31); Chloride 95 mmol/L (98-107); Estimated GFR 93; Glucose 77 mg/dL (80-115); Potassium 4.8 mmol/L (3.5-5.1); Sodium 120 mmol/L (136-145)
[2022-03-20] MEDS ORDERED: Acetaminophen 325 MG TAB PO PRN (09:50)
[2022-03-20] MEDS: Magnesium Oxide 400 MG TAB PO SCH (09:51)
[2022-03-20] MEDS: Atenolol 25 MG TAB PO SCH ×2 (09:51→20:06)
[2022-03-20] MEDS: Bisacodyl 5 MG TAB PO SCH (09:51)
[2022-03-20] MEDS: Enoxaparin Sodium 40 MG/0.4 ML SYRINGE SC SCH (09:52)
[2022-03-20 11:52] LABS: Anion Gap 10 mmol/L (10-20); BUN (Urea Nitrogen) 8 mg/dL (9.8-20.1); Calc. Creatinine Clearance 76 mL/min (70-130); Calcium 9.1 mg/dL (7.8-10.44); Carbon Dioxide 20 mmol/L (23-31); Chloride 95 mmol/L (98-107); Estimated GFR 93; Glucose 122 mg/dL (80-115); Potassium 4.4 mmol/L (3.5-5.1); Sodium 121 mmol/L (136-145)
[2022-03-20 18:20] LABS: Anion Gap 11 mmol/L (10-20); BUN (Urea Nitrogen) 8 mg/dL (9.8-20.1); Calc. Creatinine Clearance 73 mL/min (70-130); Calcium 9.2 mg/dL (7.8-10.44); Carbon Dioxide 20 mmol/L (23-31); Chloride 96 mmol/L (98-107); Estimated GFR 90; Glucose 76 mg/dL (80-115); Potassium 4.5 mmol/L (3.5-5.1); Sodium 122 mmol/L (136-145)
[2022-03-20] MEDS: cefTRIAXone\\ROCEPHIN 1 GM in Sodium Chloride 0.9% 100 ML IVPB SCH (20:06)
[2022-03-20] MEDS: Atorvastatin Calcium 10 MG TAB PO SCH (20:06)
[2022-03-20 20:29] LABS: Anion Gap 11 mmol/L (10-20); BUN (Urea Nitrogen) 9 mg/dL (9.8-20.1); Calc. Creatinine Clearance 73 mL/min (70-130); Calcium 9.3 mg/dL (7.8-10.44); Carbon Dioxide 20 mmol/L (23-31); Chloride 98 mmol/L (98-107); Estimated GFR 90; Glucose 82 mg/dL (80-115); Potassium 4.6 mmol/L (3.5-5.1); Sodium 124 mmol/L (136-145)
[2022-03-21 04:21] LABS: Anion Gap 11 mmol/L (10-20); BUN (Urea Nitrogen) 9 mg/dL (9.8-20.1); Calc. Creatinine Clearance 71 mL/min (70-130); Calcium 9.3 mg/dL (7.8-10.44); Carbon Dioxide 20 mmol/L (23-31); Chloride 99 mmol/L (98-107); Estimated GFR 87; Glucose 76 mg/dL (80-115); Potassium 4.3 mmol/L (3.5-5.1); Sodium 126 mmol/L (136-145)
[2022-03-21 04:45] LABS: Band 1 % (5-11); Eosinophils 3 % (0-10); Lymphocytes 25 % (21-51); MDiff Complete? YES; Mean Corpuscular HGB CONC 32.2 g/dL (32.0-36.0); Mean Corpuscular Volume 96.1 fL (78.0-98.0); Mean Platelet Volume 6.4 fL (7.4-10.4); Monocytes 15 % (0-10); Neutrophil 54 % (42-75); Platelet Count 357 thou/uL (130-400); RBC Distribution Width 16.2 % (11.5-14.5); Red Blood Cell (RBC) Count 2.59 mill/uL (4.20-5.40); White Blood Cell (WBC) Count 6.6 thou/uL (4.8-10.8)
[2022-03-21] MEDS: Enoxaparin Sodium 40 MG/0.4 ML SYRINGE SC SCH (08:26)
[2022-03-21] MEDS: Atenolol 25 MG TAB PO SCH ×2 (08:26→19:41)
[2022-03-21] MEDS: Bisacodyl 5 MG TAB PO SCH (08:26)
[2022-03-21] MEDS: Magnesium Oxide 400 MG TAB PO SCH (08:27)
[2022-03-21 19:39] LABS: Anion Gap 13 mmol/L (10-20); BUN (Urea Nitrogen) 10 mg/dL (9.8-20.1); Calc. Creatinine Clearance 62 mL/min (70-130); Calcium 9.4 mg/dL (7.8-10.44); Carbon Dioxide 17 mmol/L (23-31); Chloride 99 mmol/L (98-107); Estimated GFR 78; Glucose 93 mg/dL (80-115); Potassium 4.9 mmol/L (3.5-5.1); Sodium 124 mmol/L (136-145)
[2022-03-21] MEDS: Atorvastatin Calcium 10 MG TAB PO SCH (19:41)
[2022-03-21] MEDS: cefTRIAXone\\ROCEPHIN 1 GM in Sodium Chloride 0.9% 100 ML IVPB SCH (20:02)
[2022-03-22] MEDS: Enoxaparin Sodium 40 MG/0.4 ML SYRINGE SC SCH (07:53)
[2022-03-22] MEDS: Bisacodyl 5 MG TAB PO SCH (07:54)
[2022-03-22] MEDS: Magnesium Oxide 400 MG TAB PO SCH (07:54)
[2022-03-22] MEDS: Atenolol 25 MG TAB PO SCH ×2 (07:54→21:10)
[2022-03-22 08:49] LABS: Anion Gap 10 mmol/L (10-20); BUN (Urea Nitrogen) 9 mg/dL (9.8-20.1); Calc. Creatinine Clearance 66 mL/min (70-130); Calcium 9.4 mg/dL (7.8-10.44); Carbon Dioxide 22 mmol/L (23-31); Chloride 99 mmol/L (98-107); Estimated GFR 84; Glucose 93 mg/dL (80-115); Potassium 4.5 mmol/L (3.5-5.1); Sodium 126 mmol/L (136-145)
[2022-03-22 09:43] LABS: Hemoglobin 8.3 g/dL (12.0-16.0); Mean Corpuscular HGB CONC 33.9 g/dL (32.0-36.0); Mean Corpuscular Hemoglobin 32.6 pg (27.0-31.0); Mean Corpuscular Volume 96.3 fL (78.0-98.0); Mean Platelet Volume 6.3 fL (7.4-10.4); Platelet Count 300 thou/uL (130-400); RBC Distribution Width 15.9 % (11.5-14.5); Red Blood Cell (RBC) Count 2.54 mill/uL (4.20-5.40); White Blood Cell (WBC) Count 7.8 thou/uL (4.8-10.8)
[2022-03-22 10:05] LABS: Anisocytosis SLIGHT = 6-15 cells (100X) (0-5/hpf); Band 1 % (5-11); Eosinophils 2 % (0-10); Hypochromia SLIGHT = 6-15 cells (100X) (0-5/hpf); Lymphocytes 22 % (21-51); MDiff Complete? YES; Metamyelocyte 1 % (0-0); Monocytes 15 % (0-10); Neutrophil 59 % (42-75); Platelet Morphology Comment Appears Adequate
[2022-03-22] MEDS ORDERED: Sucralfate 1 GM TAB PO SCH (15:15)
[2022-03-22] MEDS: Atorvastatin Calcium 10 MG TAB PO SCH (21:07)
[2022-03-22] MEDS: cefTRIAXone\\ROCEPHIN 1 GM in Sodium Chloride 0.9% 100 ML IVPB SCH (21:10)
[2022-03-23 07:06] LABS: Anion Gap 14 mmol/L (10-20); BUN (Urea Nitrogen) 9 mg/dL (9.8-20.1); Calc. Creatinine Clearance 66 mL/min (70-130); Calcium 9.6 mg/dL (7.8-10.44); Carbon Dioxide 19 mmol/L (23-31); Chloride 103 mmol/L (98-107); Estimated GFR 84; Glucose 87 mg/dL (80-115); Potassium 4.3 mmol/L (3.5-5.1); Sodium 132 mmol/L (136-145)
[2022-03-23 08:05] LABS: Hemoglobin 8.3 g/dL (12.0-16.0); Mean Corpuscular HGB CONC 32.7 g/dL (32.0-36.0); Mean Corpuscular Hemoglobin 31.8 pg (27.0-31.0); Mean Corpuscular Volume 97.4 fL (78.0-98.0); Mean Platelet Volume 6.1 fL (7.4-10.4); Platelet Count 382 thou/uL (130-400); White Blood Cell (WBC) Count 8.6 thou/uL (4.8-10.8)
[2022-03-23] MEDS: Bisacodyl 5 MG TAB PO SCH ×2 (08:23→08:30)
[2022-03-23] MEDS: Magnesium Oxide 400 MG TAB PO SCH (08:23)
[2022-03-23] MEDS: Atenolol 25 MG TAB PO SCH ×2 (08:23→20:25)
[2022-03-23] MEDS: Enoxaparin Sodium 40 MG/0.4 ML SYRINGE SC SCH (08:24)
[2022-03-23] MEDS: Ondansetron ODT 4 MG TAB PO PRN (08:27)
[2022-03-23 09:12] LABS: Eosinophils 3 % (0-10); Lymphocytes 20 % (21-51); MDiff Complete? YES; Metamyelocyte 1 % (0-0); Monocytes 17 % (0-10); Neutrophil 59 % (42-75); RBC Morphology Normal
[2022-03-23] MEDS ORDERED: Sucralfate 1 GM TAB PO SCH (10:30)
[2022-03-23] MEDS: Atorvastatin Calcium 10 MG TAB PO SCH (20:25)
[2022-03-24 07:10] LABS: Hemoglobin 7.1 g/dL (12.0-16.0); Mean Corpuscular HGB CONC 32.1 g/dL (32.0-36.0); Mean Corpuscular Hemoglobin 31.4 pg (27.0-31.0); Mean Corpuscular Volume 97.8 fL (78.0-98.0); Mean Platelet Volume 6.4 fL (7.4-10.4); Platelet Count 398 thou/uL (130-400); RBC Distribution Width 16.1 % (11.5-14.5); Red Blood Cell (RBC) Count 2.28 mill/uL (4.20-5.40); White Blood Cell (WBC) Count 7.7 thou/uL (4.8-10.8)
[2022-03-24 07:44] LABS: Anion Gap 12 mmol/L (10-20); BUN (Urea Nitrogen) 9 mg/dL (9.8-20.1); Calc. Creatinine Clearance 66 mL/min (70-130); Calcium 9.3 mg/dL (7.8-10.44); Carbon Dioxide 19 mmol/L (23-31); Chloride 101 mmol/L (98-107); Estimated GFR 84; Glucose 90 mg/dL (80-115); Potassium 4.7 mmol/L (3.5-5.1); Sodium 127 mmol/L (136-145)
[2022-03-24 08:05] LABS: Band 2 % (5-11); Eosinophils 2 % (0-10); Hypochromia SLIGHT = 6-15 cells (100X) (0-5/hpf); Lymphocytes 30 % (21-51); MDiff Complete? YES; Monocytes 13 % (0-10); Neutrophil 53 % (42-75); Platelet Morphology Comment Appears Adequate; Polychromasia SLIGHT = 2-3 cells (100X) (0-2/hpf)
[2022-03-24] MEDS: Enoxaparin Sodium 40 MG/0.4 ML SYRINGE SC SCH (08:24)
[2022-03-24] MEDS: Magnesium Oxide 400 MG TAB PO SCH (08:24)
[2022-03-24] MEDS: Bisacodyl 5 MG TAB PO SCH (08:24)
[2022-03-24] MEDS: Atenolol 25 MG TAB PO SCH ×2 (08:24→21:04)
[2022-03-24 09:35] LABS: Hemoglobin 7.8 g/dL (12.0-16.0)
[2022-03-24 09:48] LABS: Anion Gap 14 mmol/L (10-20); BUN (Urea Nitrogen) 10 mg/dL (9.8-20.1); Calc. Creatinine Clearance 63 mL/min (70-130); Calcium 9.3 mg/dL (7.8-10.44); Carbon Dioxide 19 mmol/L (23-31); Chloride 99 mmol/L (98-107); Estimated GFR 79; Glucose 110 mg/dL (80-115); Potassium 4.6 mmol/L (3.5-5.1); Sodium 127 mmol/L (136-145)
[2022-03-24] MEDS ORDERED: Sodium Chloride 1 GM TAB PO SCH (11:30)
[2022-03-24] MEDS: Sodium Chloride 1 GM TAB PO SCH ×2 (15:02→21:03)
[2022-03-24] MEDS: Ondansetron ODT 4 MG TAB PO PRN (15:02)
[2022-03-24] MEDS: Atorvastatin Calcium 10 MG TAB PO SCH (21:05)
[2022-03-25 06:51] LABS: Anion Gap 12 mmol/L (10-20); BUN (Urea Nitrogen) 9 mg/dL (9.8-20.1); Calc. Creatinine Clearance 73 mL/min (70-130); Calcium 9.1 mg/dL (7.8-10.44); Carbon Dioxide 20 mmol/L (23-31); Chloride 105 mmol/L (98-107); Estimated GFR 93; Glucose 79 mg/dL (80-115); Potassium 4.2 mmol/L (3.5-5.1); Sodium 133 mmol/L (136-145)
[2022-03-25 07:23] LABS: Hemoglobin 7.7 g/dL (12.0-16.0); Mean Corpuscular HGB CONC 32.2 g/dL (32.0-36.0); Mean Corpuscular Hemoglobin 31.6 pg (27.0-31.0); Mean Corpuscular Volume 98.1 fL (78.0-98.0); Mean Platelet Volume 6.1 fL (7.4-10.4); Platelet Count 462 thou/uL (130-400); RBC Distribution Width 15.6 % (11.5-14.5); Red Blood Cell (RBC) Count 2.42 mill/uL (4.20-5.40); White Blood Cell (WBC) Count 7.9 thou/uL (4.8-10.8)
[2022-03-25] MEDS: Enoxaparin Sodium 40 MG/0.4 ML SYRINGE SC SCH (08:14)
[2022-03-25] MEDS: Magnesium Oxide 400 MG TAB PO SCH (08:15)
[2022-03-25] MEDS: Sodium Chloride 1 GM TAB PO SCH ×3 (08:15→21:04)
[2022-03-25] MEDS: Bisacodyl 5 MG TAB PO SCH (08:15)
[2022-03-25] MEDS: Atenolol 25 MG TAB PO SCH ×2 (08:15→21:04)
[2022-03-25 08:50] LABS: Magnesium 1.6 mg/dL (1.6-2.6); Phosphorus 3.3 mg/dL (2.3-4.7)
[2022-03-25 09:55] LABS: Hypochromia SLIGHT = 6-15 cells (100X) (0-5/hpf); Lymphocytes 30 % (21-51); MDiff Complete? YES; Monocytes 7 % (0-10); Neutrophil 63 % (42-75); Platelet Morphology Comment Appears Increased; Polychromasia SLIGHT = 2-3 cells (100X) (0-2/hpf)
[2022-03-25] MEDS: Ondansetron ODT 4 MG TAB PO PRN (11:46)
[2022-03-25] MEDS: Atorvastatin Calcium 10 MG TAB PO SCH (21:05)
[2022-03-26 06:51] LABS: Band 2 % (5-11); Eosinophils 1 % (0-10); Lymphocytes 12 % (21-51); MDiff Complete? YES; Mean Corpuscular HGB CONC 33.6 g/dL (32.0-36.0); Mean Corpuscular Hemoglobin 32.9 pg (27.0-31.0); Mean Corpuscular Volume 97.8 fL (78.0-98.0); Mean Platelet Volume 5.9 fL (7.4-10.4); Monocytes 18 % (0-10); Neutrophil 67 % (42-75); Platelet Count 416 thou/uL (130-400); RBC Distribution Width 15.1 % (11.5-14.5); Red Blood Cell (RBC) Count 2.13 mill/uL (4.20-5.40); White Blood Cell (WBC) Count 7.8 thou/uL (4.8-10.8)
[2022-03-26 06:54] LABS: Anion Gap 10 mmol/L (10-20); BUN (Urea Nitrogen) 9 mg/dL (9.8-20.1); Calc. Creatinine Clearance 70 mL/min (70-130); Calcium 9.2 mg/dL (7.8-10.44); Carbon Dioxide 22 mmol/L (23-31); Chloride 103 mmol/L (98-107); Estimated GFR 90; Glucose 94 mg/dL (80-115); Sodium 131 mmol/L (136-145)
[2022-03-26] MEDS: Enoxaparin Sodium 40 MG/0.4 ML SYRINGE SC SCH ×3 (08:26→08:32)
[2022-03-26] MEDS: Sodium Chloride 1 GM TAB PO SCH (08:26)
[2022-03-26] MEDS: Atenolol 25 MG TAB PO SCH (08:27)
[2022-03-26] MEDS: Magnesium Oxide 400 MG TAB PO SCH (08:27)
[2022-03-26] MEDS: Bisacodyl 5 MG TAB PO SCH (08:33)
[2022-03-26] MEDS: Ondansetron ODT 4 MG TAB PO PRN ×2 (08:40→13:46)
[2022-03-26 10:23] VITALS: BP 128/57; TEMP 98.7
== END 2022-03-26 14:08 | DRG 644 ==
LOC: ERS 17:04 → IMCU/EMU 19:46 → T4-B 03-21 18:06
PROVIDERS: ADMIT Emergency Medicine; ATTEND Emergency Medicine
PROC: 30233N1 Transfusion of Nonautologous Red Blood Cells into Peripheral Vein, Percutaneous Approach (ICD-10-PCS; principal; 2022-03-19)
DX: E22.2 Syndrome of inappropriate secretion of antidiuretic hormone (principal); E44.0 Moderate protein-calorie malnutrition; N39.0 Urinary tract infection, site not specified; Z20.822 Contact with and (suspected) exposure to COVID-19; Z96.653 Presence of artificial knee joint, bilateral; F41.9 Anxiety disorder, unspecified; E87.6 Hypokalemia; E11.649 Type 2 diabetes mellitus with hypoglycemia without coma; I25.10 Atherosclerotic heart disease of native coronary artery without angina pectoris; K21.9 Gastro-esophageal reflux disease without esophagitis; F03.90 Unspecified dementia, unspecified severity, without behavioral disturbance, psychotic disturbance, mood disturbance, and anxiety; E83.42 Hypomagnesemia; E11.22 Type 2 diabetes mellitus with diabetic chronic kidney disease; N18.1 Chronic kidney disease, stage 1; I12.9 Hypertensive chronic kidney disease with stage 1 through stage 4 chronic kidney disease, or unspecified chronic kidney disease; D63.1 Anemia in chronic kidney disease; S42.402D Unspecified fracture of lower end of left humerus, subsequent encounter for fracture with routine healing; Z88.0 Allergy status to penicillin; Z88.1 Allergy status to other antibiotic agents; Z79.84 Long term (current) use of oral hypoglycemic drugs; Z79.899 Other long term (current) drug therapy; Z85.118 Personal history of other malignant neoplasm of bronchus and lung; Z90.49 Acquired absence of other specified parts of digestive tract; Z68.21 Body mass index [BMI] 21.0-21.9, adult
CPT/HCPCS: 36415; 36416; 36430; 70450; 71250; 72170; 80048; 80053; 81003; 81015; 83605; 83735; 83880; 83930; 83935; 84100; 84300; 84443; 84484; 85025; 86850; 86900; 86901; 87040; 87077; 87086; 87186; 87811; 93005; 94640; 96360; 97139; J0696; J1650; J3475; J3490; J7131; J7611; P9016; Q0162; U0002

== ENCOUNTER 2022-04-27 09:00 | Emergency (ER) | payer OTHER ==
[2022-04-27] MEDS ORDERED: Ketorolac Tromethamine 30 MG/ML VIAL ONE (10:17)
== END 2022-04-27 10:38 | disposition home or self-care (01) ==
LOC: ERS 09:00
DX: M19.90 Unspecified osteoarthritis, unspecified site (principal); E11.9 Type 2 diabetes mellitus without complications; I10 Essential (primary) hypertension
CPT/HCPCS: 96372; 99283; J1885

== ENCOUNTER 2022-05-09 13:02 | Emergency (ER) | payer OTHER ==
[2022-05-09] MEDS ORDERED: Acetaminophen 500 MG TAB ONE (15:10)
== END 2022-05-09 15:31 | disposition home or self-care (01) ==
LOC: EDBD 13:02 → ERS 13:02
DX: M25.511 Pain in right shoulder (principal); E11.9 Type 2 diabetes mellitus without complications; I10 Essential (primary) hypertension
CPT/HCPCS: 99283

== ENCOUNTER 2022-05-16 14:51 | Emergency (ER) | payer OTHER ==
[2022-05-16] MEDS ORDERED: Ketorolac Tromethamine 30 MG/ML VIAL ONE (15:12)
== END 2022-05-16 15:43 | disposition home or self-care (01) ==
LOC: ERS 14:51
DX: M16.12 Unilateral primary osteoarthritis, left hip (principal); E11.9 Type 2 diabetes mellitus without complications; I10 Essential (primary) hypertension; Z79.84 Long term (current) use of oral hypoglycemic drugs; Z79.899 Other long term (current) drug therapy
CPT/HCPCS: 96372; 99283; J1885

== ENCOUNTER 2022-05-18 08:01 | Emergency (ER) | payer OTHER, MEDICAID ==
[2022-05-18] MEDS ORDERED: Ketorolac Tromethamine 30 MG/ML VIAL ONE (09:15)
== END 2022-05-18 09:39 | disposition home or self-care (01) ==
LOC: ERS 08:01
DX: M25.511 Pain in right shoulder (principal); E11.9 Type 2 diabetes mellitus without complications
CPT/HCPCS: 96372; 99282; J1885

== ENCOUNTER 2022-05-24 08:49 | Emergency (ER) | payer OTHER | END 2022-05-24 09:13 | disposition home or self-care (01) | LOC: ERS 08:49 | DX: M25.511 Pain in right shoulder (principal); E11.9 Type 2 diabetes mellitus without complications; E78.5 Hyperlipidemia, unspecified; I10 Essential (primary) hypertension | CPT/HCPCS: 99283 ==

== ENCOUNTER 2022-06-17 09:50 | Emergency (ER) | payer OTHER | END 2022-06-17 10:35 | disposition home or self-care (01) | LOC: ERS 09:50 | DX: M25.511 Pain in right shoulder (principal); E11.9 Type 2 diabetes mellitus without complications; E78.5 Hyperlipidemia, unspecified; I10 Essential (primary) hypertension | CPT/HCPCS: 99283 ==

== ENCOUNTER 2022-08-15 12:10 | Emergency (ER) | payer OTHER, MEDICAID ==
[2022-08-15 13:15] LABS: #Monocytes 0.6 thou/uL (0.11-0.59); #Neutrophils 3.4 thou/uL (1.40-6.50); %Basophils 0.1 % (0.0-1.0); %Eosinophils 0.2 % (0.0-10.0); %Lymphocytes 33.4 % (21.0-51.0); %Monocytes 9.4 % (0.0-10.0); %Neutrophils 56.8 % (42.0-75.0); Hemoglobin 12.1 g/dL (12.0-16.0); Mean Corpuscular HGB CONC 32.1 g/dL (32.0-36.0); Mean Corpuscular Hemoglobin 30.7 pg (27.0-31.0); Mean Corpuscular Volume 95.5 fl (78.0-98.0); Mean Platelet Volume 8.1 fL (7.4-10.4); Platelet Count 346 10x3/uL (130-400); RBC Distribution Width 13.1 % (11.5-14.5); Red Blood Cell (RBC) Count 3.95 mill/uL (4.20-5.40); White Blood Cell (WBC) Count 5.9 10x3/uL (4.8-10.8)
[2022-08-15] MEDS ORDERED: Ondansetron ODT 4 MG TAB ONE (13:16)
[2022-08-15 13:34] LABS: ALT (SGPT) 29 U/L (8-55); AST (SGOT) 24 U/L (5-34); Albumin 3.7 g/dL (3.4-4.8); Alkaline Phosphatase 127 U/L (40-110); Anion Gap 14 mmol/L (10-20); BUN (Urea Nitrogen) 29 mg/dL (9.8-20.1); Bilirubin, Total 0.3 mg/dL (0.2-1.2); Calc. Creatinine Clearance 0 mL/min (70-130); Calcium 9.3 mg/dL (7.8-10.44); Carbon Dioxide 23 mmol/L (23-31); Chloride 102 mmol/L (98-107); Estimated GFR 54; Globulin 3.7 g/dL (2.4-3.5); Glucose 108 mg/dL (80-115); Lipase 37 U/L (8-78); Potassium 4.8 mmol/L (3.5-5.1); Protein, Total 7.4 g/dL (5.8-8.1); Sodium 134 mmol/L (136-145)
== END 2022-08-15 14:07 | disposition home or self-care (01) ==
LOC: ERS 12:10
DX: R11.2 Nausea with vomiting, unspecified (principal); E11.9 Type 2 diabetes mellitus without complications; E78.5 Hyperlipidemia, unspecified; I10 Essential (primary) hypertension
CPT/HCPCS: 36415; 71045; 80053; 83690; 84484; 85025; 93005; Q0162

== ENCOUNTER 2022-11-27 14:48 | Emergency (ER) | payer OTHER ==
[2022-11-27 16:18] LABS: ALT (SGPT) 12 U/L (8-55); AST (SGOT) 13 U/L (5-34); Albumin 3.7 g/dL (3.4-4.8); Alkaline Phosphatase 100 U/L (40-110); Anion Gap 20 mmol/L (10-20); BUN (Urea Nitrogen) 120 mg/dL (9.8-20.1); Bilirubin, Total 0.5 mg/dL (0.2-1.2); Calc. Creatinine Clearance 0 mL/min (70-130); Calcium 10.3 mg/dL (7.8-10.44); Carbon Dioxide 17 mmol/L (23-31); Chloride 107 mmol/L (98-107); Estimated GFR 8; Globulin 4.2 g/dL (2.4-3.5); Glucose 94 mg/dL (80-115); Potassium 4.5 mmol/L (3.5-5.1); Protein, Total 7.9 g/dL (5.8-8.1); Sodium 139 mmol/L (136-145)
[2022-11-27 16:29] LABS: INR-International Normal Ratio 1.7; PTT 42.3 sec (22.9-36.1); Prothrombin Time 20.7 sec (12.0-14.7)
[2022-11-27 16:49] LABS: Hemoglobin 9.3 g/dL (12.0-16.0); Manual Diff?? YES; Mean Corpuscular HGB CONC 33.9 g/dL (32.0-36.0); Mean Corpuscular Hemoglobin 32.4 pg (27.0-31.0); Mean Corpuscular Volume 95.5 fl (78.0-98.0); Mean Platelet Volume 11.8 fL (7.4-10.4); Red Blood Cell (RBC) Count 2.87 mill/uL (4.20-5.40); White Blood Cell (WBC) Count 1.6 10x3/uL (4.8-10.8)
[2022-11-27 16:53] LABS: Delete Auto Diff?? YES; Platelet Count 24 10x3/uL (130-400)
[2022-11-27 17:14] LABS: Band 6 % (5-11); Burr Cells SLIGHT = 2-5 cells HPF (0-1); CellaVision Operator ID LAB.KB; Dohle Bodies SLIGHT; Eosinophils 5 % (0-10); Lymphocytes 67 % (21-51); Neutrophil 22 % (42-75); Platelet Adequacy Comment Significant decrease; Smudge Cells 11.9 %; Total Cell Count 101
[2022-11-27] MEDS ORDERED: Morphine 4 MG/ML VIAL ONE (17:48)
[2022-11-27] MEDS ORDERED: Ondansetron PF 4 MG/2 ML Vial ONE (17:48)
== END 2022-11-27 21:22 | disposition short-term general hospital (02) ==
LOC: ERS 14:48
DX: N17.9 Acute kidney failure, unspecified (principal); D69.6 Thrombocytopenia, unspecified; R58 Hemorrhage, not elsewhere classified; I10 Essential (primary) hypertension; E11.9 Type 2 diabetes mellitus without complications
CPT/HCPCS: 36430; 80053; 85025; 85610; 85730; 86850; 86900; 86901; 96361; 96374; 96375; 99285; P9035; 36415; 36416; J2270; J2405

== ENCOUNTER 2023-01-09 14:41 | Emergency (ER) | payer OTHER ==
[2023-01-09] MEDS ORDERED: Bacitracin 1 PK ONE (16:03)
== END 2023-01-09 16:10 | disposition home or self-care (01) ==
LOC: ERS 14:41
DX: T22.212A Burn of second degree of left forearm, initial encounter (principal); E11.9 Type 2 diabetes mellitus without complications; E78.5 Hyperlipidemia, unspecified; I10 Essential (primary) hypertension; X10.0XXA Contact with hot drinks, initial encounter
CPT/HCPCS: 99282

== ENCOUNTER 2023-01-13 08:54 | Emergency (ER) | payer OTHER ==
[2023-01-13] MEDS ORDERED: Lidocaine 1% PF 5 ML VIAL ONE (09:38)
[2023-01-13] MEDS ORDERED: Bacitracin 1 PK ONE (09:45)
== END 2023-01-13 10:11 | disposition home or self-care (01) ==
LOC: ERS 08:54
DX: T22.212A Burn of second degree of left forearm, initial encounter (principal); E11.9 Type 2 diabetes mellitus without complications; I10 Essential (primary) hypertension; X08.8XXA Exposure to other specified smoke, fire and flames, initial encounter
CPT/HCPCS: 99283

== ENCOUNTER 2025-03-04 10:57 | Emergency (ER) | payer OTHER ==
[2025-03-04] MEDS ORDERED: Ketorolac Tromethamine 30 MG (1 mL) VIAL ONE (11:44)
== END 2025-03-04 12:08 | disposition home or self-care (01) ==
LOC: ERS 10:57
DX: M54.50 Low back pain, unspecified (principal); G89.29 Other chronic pain; E11.9 Type 2 diabetes mellitus without complications; I10 Essential (primary) hypertension; I25.2 Old myocardial infarction
CPT/HCPCS: 96372; 99282; J1885